=== PATIENT | female | born 1995 | race Caucasian/White ===

== ENCOUNTER 2023-04-28 12:50 | Outpatient (OUT) | payer BC, SELFPAY ==
--- NOTE | 2023-04-28 13:20 | CA_ITS ---
Patient Name: ARISTEO ROLAND MR#: [id number] : 1995 Exam Date: 04/28/2023 Ordering Doctor: DELIA MONSON ECHOCARDIOGRAM REPORT PROCEDURE: CA ECHO DOPPLER COMPLETE INDICATIONS: Supraventricular tachycardia COMPARISON: None. DESCRIPTION: COMPLETE ECHOCARDIOGRAM Real-time transthoracic echocardiography with 2D, M-mode, spectral and color flow Doppler performed. QUALITY: Technical quality was good. 58 , 125#, BSA 1.49 m2 LEFT VENTRICLE: Normal chamber size. Normal left ventricular wall thickness. LV EF: Global left ventricular systolic function is normal; visually estimated ejection fraction is 60 to 65%. No wall motion abnormalities. DIASTOLIC: Normal diastolic function. ATRIAL SEPTUM: Inadequately seen. LEFT ATRIUM: Normal chamber size. RIGHT ATRIUM: Normal chamber size. RIGHT VENTRICLE: Normal chamber size. Normal right ventricular systolic function. TRICUSPID VALVE: Normal mobility and thickness. No stenosis with trivial regurgitation. Unable to assess right-sided pressures due to lack of measurable tricuspid regurgitation. MITRAL VALVE: Normal mobility and thickness. No evidence of mitral valve stenosis. There is no mitral annular calcification. No mitral regurgitation. AORTIC VALVE: Normal trileaflet appearance. No visible sclerosis. Normal leaflet mobility. No evidence of aortic valve stenosis. No aortic regurgitation. AORTIC ROOT: Normal diameter and appearance. PULMONIC VALVE: Normal thickness and mobility. No stenosis. Trivial regurgitation. PERICARDIUM: No evidence of pericardial effusion. IVC: Collapses with inspirations. CONCLUSION: Essentially normal echocardiogram Adult Echocardiography Procedure Report Left Ventricle LVEDD (3.7 - 5.6 cm): 4.10 cm LVESD (2.2 - 4.0 cm): 2.77 cm LVIVS thickness (0.6 - 1.2 cm): 0.68 cm LVPW thickness (0.5 - 1.0 cm): 0.79 cm e': 0.16 m/s E - e': 4.81 LVOT Max Gradient: 3.73 mm[Hg] LVOT Area (cm2): 0.97 m/s Peak Velocity (LVOT): 0.97 m/s Mean Velocity (LVOT): 0.65 m/s LVOT Diameter 1.98 cm Left Atrium LA Volume Index (2D A2C): 17.03 ml/m2 Left Atrium Systolic Dimension: 3.07 cm Mitral Valve MV E to A Ratio: 1.84 Mitral Valve A-Wave Peak Velocity: 0.42 m/s Mitral Valve E-Wave Peak Velocity: 0.77 m/s Right Ventricle Aorta AO Root Diam: 2.52 cm Ascending Ao Diam: 2.34 cm Aortic Valve AoV Area (Peak Deven): 3.07 cm2, 3.07 cm2 AoV Area (VTI): 3.13 cm2, 3.13 cm2 Peak Velocity(Antegrade Flow): 0.96 m/s Peak Gradient(Antegrade Flow): 3.71 mm[Hg] Mean Velocity(Antegrade Flow): 0.66 m/s Mean Gradient(Antegrade Flow): 1.98 mm[Hg] Velocity Time Integral: 18.79 cm Tricuspid Valve Pulmonic Valve Peak Velocity: 1.01 m/s Peak Gradient: 4.18 mm[Hg], 4.01 mm[Hg] Right Atrium Right Atrium Systolic Pressure: 30.39 ml, 30.39 ml Dictated by: Latoya Flor M.D. on 04/28/2023 at 15:25 Approved by: Latoya Flor M.D. on 04/28/2023 at 15:27
== END 2023-04-28 12:51 | disposition home or self-care (01) ==
LOC: CARD 12:50
PROVIDERS: PCP Physician Assistant; Visit Provider Nurse Practitioner
DX: I47.10 Supraventricular tachycardia, unspecified (principal); R94.31 Abnormal electrocardiogram [ECG] [EKG]
CPT/HCPCS: 93306

== ENCOUNTER 2023-05-12 09:30 | Outpatient (OUT) | payer BC, SELFPAY ==
--- OUTSIDE RECORDS SUMMARY | 2023-05-12 09:33 | XMS_ITS | CCD ---
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 Name Role Phone Kentrell Perez Primary Care Physician Clau Genao KENNARD, DR SWAIN Admitting Unavailable KENNARD, DR SWAIN Attending Unavailable KENNARD, DR SWAIN Primary Care Unavailable KENNARD, DR KENTRELL Awan Unavailable KENNARD, DR KENTRELL Arechigaitting Unavailable KENNARD, DR SWAIN Attending Unavailable KENNARD, DR SWAIN Primary Care Unavailable KENNARD, DR SWAIN Consulting Unavailable KENNARD, DR SWAIN Admitting Unavailable KENNARD, DR SWAIN Attending Unavailable HOUSE, DR SWAIN Primary Care Unavailable HOUSE, DR SWAIN Consulting Unavailable JITENDRA, JASBIR Admitting Unavailable JITENDRA, JASBIR Attending Unavailable JITENDRA, JASBIR Consulting Unavailable JITENDRA, JASBIR Admitting Unavailable JITENDRA, JASBIR Attending Unavailable HOUSE, DR SWAIN Primary Care Unavailable JITENDRA, JASBIR Consulting Unavailable ANAND, GLADIS Admitting Unavailable ANAND, GLADIS Attending Unavailable HOUSE, DR SWAIN Primary Care Unavailable GLADIS MICHEL Consulting Unavailable KENNARD, DR SWAIN Admitting Unavailable KENNARD, DR SWAIN Attending Unavailable KENNARD, DR SWAIN Primary Care Unavailable KENNARD, DR SWAIN Consulting Unavailable KENNARD, DR SWAIN Admitting Unavailable KENNARD, DR SWAIN Attending Unavailable HOUSE, DR SWAIN Primary Care Unavailable KENNARD, DR SWAIN Consulting Unavailable Elle Benoit Unavailable DELIA DIAZ Attending Unavailable LUIS A MORSE Attending Unavailable DELIA DIAZ Attending Unavailable Allergies Allergy Classification Reported Allergen(s) Allergy Type Date of Onset Reaction(s) Facility (1 source) Fluconazole; Translations: [FLUCONAZOLE] Drug Allergy 08-09-2022 [facility] Repository Medications Current Medications Medication Drug Class(es) Dates Sig (Normalized) Sig (Original) [id number] 200 actuat albuterol 0.09 mg/actuat metered dose inhaler (1 source) beta2-Adrenergic Agonist Start: 3 take 2 puff(s) by inhalation every four hours as needed Albuterol Sulfate HFA 108 (90 Base) MCG/ACT 2 puffs as needed Inhalation every 4 hrs Apr, Active benzonatate 100 mg oral capsule (1 source) Non-narcotic Antitussive Start: 3 take 1 capsule by mouth every eight hours Tessalon Perles 100 MG 1 capsule as needed Orally Three times a day Apr, Active methIMAzole 5 mg oral tablet (1 source) Thyroid Hormone Synthesis Inhibitor Start: 9 take 2.5 mg by mouth once daily Tapazole 5 mg Tab 2.5 mg, Oral, Daily Start Date: 11/30/18 Status: Ordered methylPREDNISolone 4 mg oral tablet (1 source) Corticosteroid Start: 3 methylPREDNISolone 4 MG as directed Orally Once a day for 6 days Apr, Active predniSONE 20 mg oral tablet (1 source) Start: 3 take 1 tablet by mouth every twelve hours predniSONE 20 MG 1 tablet Orally bid for 5 day(s) Nov, Active propylthiouracil 50 mg oral tablet (1 source) Thyroid Hormone Synthesis Inhibitor take 1 tablet by mouth every twelve hours Propylthiouracil 50 MG 1 tablet Orally Twice a day Active Completed/Discontinued Medications Medication Drug Class(es) Dates Sig (Normalized) Sig (Original) triamcinolone acetonide 40 mg/ml injectable suspension (1 source) Corticosteroid Start: 12-03-2022 Kenalog-40 Nov, 40 mg Problems Active Problems Problem Classification Problem Date Documented Date Episodic/Chronic Allergic reactions (1 source) Allergic contact dermatitis due to plants, except food Episodic Cardiac dysrhythmias (2 sources) Supraventricular tachycardia; Translations: [Supraventricular tachycardia] Onset: 10-04-2022 Chronic Chronic obstructive pulmonary disease and bronchiectasis (1 source) Bronchitis, not specified as acute or chronic Episodic Other screening for suspected conditions (not mental disorders or infectious disease) (5 sources) Encounter for screening for malignant neoplasm of cervix; Translations: [Encounter for screening for cardiovascular disorders] Onset: 04-25-2022 Episodic Residual codes; unclassified (4 sources) Immunization not carried out for unspecified reason; Translations: [IMMUN NOT CARRIED OUT UNS REASON] Onset: 05-09-2022 Episodic Thyroid disorders (5 sources) Thyrotoxicosis with diffuse goiter without thyrotoxic crisis or storm; Translations: [TTX DIFFUS GOITER NO THYROTOXC RAMILA] Onset: 04-25-2022 Chronic Unclassified (1 source) Supraventricular tachycardia, unspecified; Translations: [Supraventricular tachycardia, unspecified] Onset: 04-07-2023 Past or Other Problems Problem Classification Problem Date Documented Date Episodic/Chronic Nonspecific chest pain (2 sources) Chest pain, unspecified; Translations: [Chest pain, unspecified] Onset: 08-09-2022 Episodic Unclassified (1 source) Cough R05.9 Unclassified (1 source) Supraventricular tachycardia, unspecified; Translations: [Supraventricular tachycardia, unspecified] Onset: 04-07-2023 Results Test Name Value Interpretation Reference Range Facility Office Visiton 04-07-2023 Follow-up visit [id number] Estephanie Kothari N 1995 F Date Provider Department Center 04/07/2023 DELIA VIZCAINO No family history on file Level of Service:17045 SC OFFICE/OUTPATIENT ESTABLISHED LOW MDM 20 MIN Normal [facility] Telemedicineon 10-04-2022 Telemedicine [id number] Estephanie Kothari 1995 F Date Provider Department Center 10/04/2022 LUIS A CHA [facility] No family history on file Level of Service:54460 SC PHYS/QHP TELEPHONE EVALUATION 21-30 MIN Normal [facility] Office Visiton 08-09-2022 Follow-up visit [id number] Estephanie Kothari 1995 F Date Provider Department Center 08/09/2022 DELIA VIZCAINO [facility] No family history on file Level of Service:51054 SC OFFICE/OUTPATIENT NEW MODERATE MDM 45-59 MINUTES Reason for Visit and Comments: New Patient [632] - C/O chest pain and shortness of breath. Hx of SVT, MVP. Family history of cardiac issues. Normal [facility] T4on 07-26-2022 T4 [Mass/Vol] 8.60 ug/dL Normal 4.80-13.90 [facility] Comment on above: Performed By: #### T , T4 #### [facility] [address] [address] [address] Cristiana Bautista TSHon 07-26-2022 TSH 2.139 uIU/mL Normal 0.358-3.740 [facility] Comment on above: Performed By: #### T SH, T4 #### [facility] [address] [address] [address] Cristiana Bautista PAP ACOG PANEL 2: 21 to 31on 06-08-2022 . . Normal [facility] Comment on above: Performed By: #### T SH, T4 #### [facility] [address] [address] [address] Cristiana Bautista Age Gdln ACOG Testing - [facility] Comment on above: Performed By: #### T SH, T4 #### [facility] [address] [place] [address] Dr. Cristiana Bautista DIAGNOSIS: Comment [facility] Comment on above: Result Comment: NEGA TIVE FOR INTRAEPITHELIAL LESION OR MALIGNANCY. Performed By: #### T SH, T4 #### [facility] [address] [place] [address] Dr. Cristiana Bautista Methodology: Comment [facility] Comment on above: Result Comment: This liquid based ThinPrep(R) pap test was screened with the use of an image guided system. Performed By: #### T SH, T4 #### [facility] [address] [place] [address] Dr. Cristiana Bautista Note: Comment [facility] Comment on above: Result Comment: The Pap smear is a screening test designed to aid in the detection of premalignant and malignant conditions of the uterine cervix. It is not a diagnostic procedure and should not be used as the sole means of detecting cervical cancer. Both false-positive and false-negative reports do occur. . Performed By: #### T SH, T4 #### [facility] [address] [place] [address] Dr. Cristiana Bautista Performed by: Comment [facility] Comment on above: Result Comment: Claudine Garcia, School Age Program Teacher (ASCP) Performed By: #### T SH, T4 #### [facility] [address] [place] [address] Dr. Cristiana Bautista Reflex Criteria: Comment Normal [facility] Comment on above: Result Comment: The HPV DNA reflex criteria were not met with this specimen result therefore, no HPV testing was performed. . Performed By: #### T SH, T4 #### [facility] [address] [place] [address] Dr. Cristiana Bautista Specimen adequacy: Comment Normal [facility] Comment on above: Result Comment: Sati sfactory for evaluation. Endocervical and/or squamous metaplastic cells (endocervical component) are present. Performed By: #### T SH, T4 #### [facility] [address] [place] [address] Dr. Cristiana Bautista T4on 06-07-2022 T4 [Mass/Vol] 4.70 ug/dL Critically low 4.80-13.90 [facility] Comment on above: Performed By: #### T SH, T4 #### [facility] [address] [place] [address] Dr. Cristiana Bautista TSHon 06-07-2022 TSH 7.684 uIU/mL Critically high 0.358-3.740 [facility] Comment on above: Performed By: #### T SH, T4 #### [facility] [address] [place] [address] Dr. Cristiana Bautista VARICELLA IGG ABon 3 Varicella Zoster IgG 273 index Normal Immune >165 [facility] Comment on above: Result Comment: Nega tive <135 Equivocal 135 - 165 Positive >165 A positive result generally indicates exposure to the pathogen or administration of specific immunoglobulins, but it is not indication of active infection or stage of disease. Performed By: #### V ARCEL #### [facility] [address] [place] [address] Dr. Cristiana Bautista CBC AUTO DIFFon 04-23-2022 BASO # 0.0 103/ul Normal 0.0-0.1 [facility] Comment on above: Performed By: #### C BC #### [facility] [address] [place] [address] Dr. Cristiana Bautista Basophils/100 WBC (Bld) 0.4 % Normal 0.2-2.0 [facility] Comment on above: Performed By: #### C BC #### [facility] [address] [place] [address] Dr. Cristiana Bautista EO # 0.1 103/ul Normal 0.0-0.7 [facility] Comment on above: Performed By: #### C BC #### [facility] [address] [place] [address] Dr. Cristiana Bautista Eosinophils/100 WBC (Bld) 2.3 % Normal 0.9-7.0 [facility] Comment on above: Performed By: #### C BC #### [facility] [address] [place] [address] Dr. Cristiana Bautista Erythrocyte distribution width (RBC) [Ratio] 11.3 % Normal 11.0-15.0 [facility] Comment on above: Performed By: #### C BC #### [facility] [address] [place] [address] Dr. Cristiana Bautista Hematocrit (Bld) [Volume fraction] 35.8 % Critically low 36.0-48.0 [facility] Comment on above: Performed By: #### C BC #### [facility] [address] [place] [address] Dr. Cristiana Bautista Hemoglobin (Bld) [Mass/Vol] 13.0 g/dL Normal 12.0-16.0 [facility] Comment on above: Performed By: #### C BC #### [facility] [address] [place] [address] Dr. Cristiana Bautista IG # 0.01 10e3/ul Normal 0.00-0.03 [facility] Comment on above: Performed By: #### C BC #### [facility] [address] [place] [address] Dr. Cristiana Bautista IG % 0.2 % Normal 0.0-0.5 [facility] Comment on above: Performed By: #### C BC #### [facility] [address] [place] [address] Dr. Cristiana Bautista LYMPH # 2.7 103/ul Normal 1.2-3.8 [facility] Comment on above: Performed By: #### C BC #### [facility] [address] [place] [address] Dr. Cristiana Bautista Lymphocytes/100 WBC (Bld) 51.0 % Normal 20.5-60.0 [facility] Comment on above: Performed By: #### C BC #### [facility] [address] [place] [address] Dr. Cristiana Bautista MANUAL DIFF REQ NO Normal [facility] Comment on above: Performed By: #### C BC #### [facility] [address] [place] [address] Dr. Cristiana Bautista MCH (RBC) [Entitic mass] 27.7 pg Normal 26.7-34.0 [facility] Comment on above: Performed By: #### C BC #### [facility] [address] [place] [address] Dr. Cristiana Bautista MCHC (RBC) [Mass/Vol] 36.3 g/dL Critically high 29.9-35.2 [facility] Comment on above: Performed By: #### C BC #### [facility] [address] [place] [address] Dr. Cristiana Bautista MCV (RBC) [Entitic vol] 76.3 fL Critically low 81.0-99.0 [facility] Comment on above: Performed By: #### C BC #### [facility] [address] [place] [address] Dr. Cristiana Bautista MONO # 0.3 103/ul Normal 0.3-0.8 [facility] Comment on above: Performed By: #### C BC #### [facility] [address] [place] [address] Dr. Cristiana Bautista Monocytes/100 WBC (Bld) 6.3 % Normal 1.7-12.0 [facility] Comment on above: Performed By: #### C BC #### [facility] [address] [place] [address] Dr. Cristiana Bautista NEUT # 2.1 103/ul Normal 1.4-6.5 [facility] Comment on above: Performed By: #### C BC #### [facility] [address] [place] [address] Dr. Cristiana Bautista Neutrophils/100 WBC (Bld) 39.8 % Critically low 43.0-75.0 [facility] Comment on above: Performed By: #### C BC #### [facility] [address] [place] [address] Dr. Cristiana Bautista Platelet mean volume (Bld) [Entitic vol] 9.2 fL Critically low 9.5-13.5 [facility] Comment on above: Performed By: #### C BC #### [facility] [address] [place] [address] Dr. Cristiana Bautista PLT 370 103/ul Normal 150-450 [facility] Comment on above: Performed By: #### C BC #### [facility] [address] [place] [address] Dr. Cristiana Bautista RBC 4.69 106/ul Normal 4.20-5.40 [facility] Comment on above: Performed By: #### C BC #### [facility] [address] [place] [address] Dr. Cristiana Bautista WBC 5.3 103/ul Normal 4.0-11.0 [facility] Comment on above: Performed By: #### C BC #### [facility] [address] [place] [address] Dr. Cristiana Bautista DRUG SCREEN RAPID (URINE)on 04-23-2022 AMP Negative Normal NEGATIVE [facility] Comment on above: Performed By: #### T SH, T4 #### [facility] [address] [place] [address] Dr. Cristiana Bautista BAR Negative Normal NEGATIVE [facility] Comment on above: Performed By: #### T SH, T4 #### [facility] [address] [place] [address] Dr. Cristiana Bautista BUP Negative Normal NEGATIVE [facility] Comment on above: Performed By: #### T SH, T4 #### [facility] [address] [place] [address] Dr. Cristiana Bautista BZO Negative Normal NEGATIVE [facility] Comment on above: Performed By: #### T SH, T4 #### [facility] [address] [place] [address] Dr. Cristiana Bautista DEONTE Negative Normal NEGATIVE [facility] Comment on above: Performed By: #### T SH, T4 #### [facility] [address] [place] [address] Dr. Cristiana Bautista CUT-OFFS SEE BELOW Normal [facility] Comment on above: Result Comment: AMP (Amphetamine): 500ng/mL, BAR (Barbituates): 200 ng/mL, BZO (Benzodiazepines): 150 ng/mL, BUP (Buprenorphine): 10 ng/mL, DEONTE (Cocaine): 150 ng/mL, mAMP (Methamphetamine): 500 ng/mL, MTD (Methadone): 200 ng/mL, OPI (Opiates): 100 ng/mL, OXY (Oxycodone): 100 ng/mL, PCP (Phencyclidine): 25 ng/mL, PPX (Propoxyphene): 300 ng/mL, THC (Cannabinoids): 50 ng/mL, TCA (Trycyclic Antidepressants): 300 ng/mL Performed By: #### T SH, T4 #### [facility] [address] [place] [address] Dr. Cristiana Bautista DRUG CUT HEADER DRUG CLASS TEST SYSTEM CUT-OFF CONCENTRATIONS ARE FOLLOWS: Normal [facility] Comment on above: Performed By: #### T SH, T4 #### [facility] [address] [place] [address] Dr. Cristiana Bautista mAMP Negative Normal NEGATIVE [facility] Comment on above: Performed By: #### T SH, T4 #### [facility] [address] [place] [address] Dr. Cristiana Bautista MTD Negative Normal NEGATIVE [facility] Comment on above: Performed By: #### T SH, T4 #### [facility] [address] [place] [address] Dr. Cristiana Bautista OPI Negative Normal NEGATIVE [facility] Comment on above: Performed By: #### T SH, T4 #### [facility] [address] [place] [address] Dr. Cristiana Bautista OXY Negative Normal NEGATIVE [facility] Comment on above: Performed By: #### T SH, T4 #### [facility] [address] [address] [address] Cristiana Bautista PCP Negative Normal NEGATIVE [facility] Comment on above: Performed By: #### T SH, T4 #### [facility] [address] [place] [address] Dr. Cristiana Bautista PPX Negative Normal NEGATIVE [facility] Comment on above: Performed By: #### T SH, T4 #### [facility] [address] [place] [address] Dr. Cristiana Bautista TCA Negative Normal NEGATIVE [facility] Comment on above: Performed By: #### T SH, T4 #### [facility] [address] [place] [address] Dr. Cristiana Bautista THC Negative Normal NEGATIVE [facility] Comment on above: Performed By: #### T SH, T4 #### [facility] [address] [place] [address] Dr. Cristiana Bautista LIPID PROFILEon 04-23-2022 CHOL-HDL RATIO NORM SEE BELOW Normal [facility] Comment on above: Result Comment: 3.3 - 4.4 LOW RISK 4.4 - 7.1 AVERAGE RISK 7.1 - 11.0 MODERATE RISK >11.0 HIGH RISK Performed By: #### L IPID, CMP #### [facility] [address] [place] [address] Dr. Cristiana Bautista Cholesterol [Mass/Vol] 156 mg/dL Normal <=200 [facility] Comment on above: Performed By: #### L IPID, CMP #### [facility] [address] [place] [address] Dr. Cristiana Bautista Cholesterol in HDL [Mass/Vol] 43 mg/dL Normal 40-60 [facility] Comment on above: Performed By: #### L IPID, CMP #### [facility] [address] [place] [address] Dr. Cristiana Bautista Cholesterol in LDL [Mass/Vol] 95.2 mg/dL Normal [facility] Comment on above: Performed By: #### L IPID, CMP #### [facility] [address] [address] [address] Cristiana Bautista Cholesterol.total/C holesterol in HDL [Mass ratio] 3.6 {ratio} Normal [facility] Comment on above: Performed By: #### L IPID, CMP #### [facility] [address] [address] [address] Cristiana Bautista HDL NORMAL > or = 60 mg/dl - LO W CARDIOVASCULAR RISK <40 mg/dl - HIGH CARDIOVASCULAR RISK Normal [facility] Comment on above: Performed By: #### L IPID, CMP #### [facility] [address] [address] [address] Cristiana Bautista LDL CALC NORMAL SEE BELOW Normal [facility] Comment on above: Result Comment: <100 mg/dl OPTIMAL 100 - 129 mg/dl NEAR OR ABOVE OPTIMAL 130 - 159 mg/dl BORDERLINE HIGH 160 - 189 mg/dl HIGH >190 mg/dl VERY HIGH Performed By: #### L IPID, CMP #### [facility] [address] [place] [address] Dr. Cristiana Bautista Triglyceride [Mass/Vol] 89 mg/dL Normal <=150 [facility] Comment on above: Performed By: #### L IPID, CMP #### [facility] [address] [address] [address] Cristiana Bautista VLDL CALC 17.8 mg/dL Normal [facility] Comment on above: Performed By: #### L IPID, CMP #### [facility] [address] [address] [address] Cristiana Bautista PROF 14(COMP METB)on 023 Albumin [Mass/Vol] 3.7 g/dL Normal 3.4-5.[address] [facility] Comment on above: Performed By: #### L IPID, CMP #### [facility] [address] [address] [address] Cristiana Bautista Albumin/Globulin [Mass ratio] 1.0 {ratio} Normal [facility] Comment on above: Performed By: #### L IPID, CMP #### [facility] [address] [address] [address] Cristiana Bautista ALP [Catalytic activity/Vol] 72 U/L Normal 46-116 [facility] Comment on above: Performed By: #### L IPID, CMP #### [facility] [address] [address] [address] Cristiana Bautista ALT [Catalytic activity/Vol] 18 U/L Normal 14-59 [facility] Comment on above: Performed By: #### L IPID, CMP #### [facility] [address] [address] [address] Cristiana Bautista Anion gap [Moles/Vol] 11.2 mmol/L Normal [facility] Comment on above: Performed By: #### L IPID, CMP #### [facility] [address] [place] [address] Dr. Cristiana Bautista AST [Catalytic activity/Vol] 16 U/L Normal 15-37 [facility] Comment on above: Performed By: #### L IPID, CMP #### [facility] [address] [address] [address] Cristiana Bautista Bilirubin [Mass/Vol] 0.4 mg/dL Normal 0.2-1.0 [facility] Comment on above: Performed By: #### L IPID, CMP #### [facility] [address] [place] [address] Dr. Cristiana Bautista Calcium [Mass/Vol] 8.8 mg/dL Normal 8.5-10.[address] [facility] Comment on above: Performed By: #### L IPID, CMP #### [facility] [address] [address] [address] Cristiana Bautista Chloride [Moles/Vol] 104 mmol/L Normal 98-107 [facility] Comment on above: Performed By: #### L IPID, CMP #### [facility] [address] [address] [address] Cristiana Bautista CO2 [Moles/Vol] 29.9 mmol/L Normal 21.0-32.0 [facility] Comment on above: Performed By: #### L IPID, CMP #### [facility] [address] [address] [address] Cristiana Bautista Creatinine [Mass/Vol] 0.44 mg/dL Critically low 0.55-1.02 [facility] Comment on above: Performed By: #### L IPID, CMP #### [facility] [address] [address] [address] Cristiana Bautista EGFR-AF PALAUAN >60 Normal >=60 [facility] Comment on above: Performed By: #### L IPID, CMP #### [facility] [address] [address] [address] Cristiana Bautista EGFR-NON AF PALAUAN >60 Normal >=60 [facility] Comment on above: Performed By: #### L IPID, CMP #### [facility] [address] [address] [address] Cristiana Bautista Globulin (S) [Mass/Vol] 3.7 g/dL Normal [facility] Comment on above: Performed By: #### L IPID, CMP #### [facility] [address] [address] [address] Cristiana Bautista Glucose [Mass/Vol] 94 mg/dL Normal 74-[address] [facility] Comment on above: Performed By: #### L IPID, CMP #### [facility] [address] [address] [address] Cristiana Bautista Potassium [Moles/Vol] 4.1 mmol/L Normal 3.5-5.1 [facility] Comment on above: Performed By: #### L IPID, CMP #### [facility] [address] [address] [address] Cristiana Bautista Protein [Mass/Vol] 7.4 g/dL Normal 6.4-8.2 [facility] Comment on above: Performed By: #### L IPID, CMP #### [facility] [address] [address] [address] Cristiana Bautista Sodium [Moles/Vol] 141 mmol/L Normal 136-145 [facility] Comment on above: Performed By: #### L IPID, CMP #### [facility] [address] [place] [address] Dr. Cristiana Bautista Urea nitrogen [Mass/Vol] 8.0 mg/dL Normal 7.0-18.0 [facility] Comment on above: Performed By: #### L IPID, CMP #### [facility] [address] [place] [address] Dr. Cristiana Bautista Urea nitrogen/Creatinine [Mass ratio] 18.2 mg/mg Normal [facility] Comment on above: Performed By: #### L IPID, CMP #### [facility] [address] [place] [address] Dr. Cristiana Bautista T4on 04-23-2022 T4 [Mass/Vol] 10.10 ug/dL Normal 4.80-13.90 [facility] Comment on above: Performed By: #### T SH, T4 #### [facility] [address] [place] [address] Dr. Cristiana Bautista TSHon 04-23-2022 TSH Qn m[IU]/L Critically low 0.358-3.740 [facility] Comment on above: Performed By: #### T SH, T4 #### [facility] [address] [place] [address] Dr. Cristiana Bautista COVID/FLU/RSV RT-PCRon 04-19 SARS-CoV-2 (COVID-19) RNA SURAJ+probe Ql (Unsp spec) Negative [facility] Other COVID/FLU/RSV RT-PCR Negative [facility] Other COVID/FLU/RSV RT-PCR neggative [facility] Other T4on 03-12-2022 T4 [Mass/Vol] 15.90 ug/dL Critically high 4.80-13.90 [facility] Comment on above: Performed By: #### T SH, T4 #### [facility] [address] [place] [address] Dr. Cristiana Bautista TSHon 03-12-2022 TSH Qn m[IU]/L Critically low 0.358-3.740 [facility] Comment on above: Performed By: #### T SH, T4 #### [facility] [address], [place] [address] Dr. Cristiana Bautista T4on 02-01-2022 T4 [Mass/Vol] 13.00 ug/dL Normal 4.80-13.90 [facility] Comment on above: Performed By: #### T SH, T4 #### [facility] [address], [place] [address] Dr. Cristiana Bautista TSHon 02-01-2022 TSH 0.001 uIU/mL Critically low 0.358-3.740 [facility] Comment on above: Performed By: #### T SH, T4 #### [facility] [address], [place] [address] Dr. Cristiana Bautista Event Monitoron 01-07-2019 Event Monitor EVENT MONITOR ENROLLMENT PERIOD: 12/05/2018 TO 01/03/2019 INDICATIONS: Supraventricular tachycardia. FINDINGS: Sinus rhythm noted 12/05, 12/06, 12/07 and 12/08. Heart rates ranging between 65 and 96 beats per minute. The patient does complain of shortness of breath and chest pain and heart racing, but only sinus rhythm is noted. On 12/15 there is a supraventricular rhythm, heart rate of 160; however, due to significant signal degradation it is unclear what the underlying rhythm is. However, it is suspected that this represents sinus tachycardia. Cannot rule out supraventricular tachycardia. On 12/22 and 12/28 there are complaints of shortness of breath and chest pain and light-headedness while the patient is in sinus rhythm or sinus tachycardia, heart rates ranging between 86 and 113 beats per minute. IMPRESSION: 1. Event monitor notable for the predominance of sinus rhythm and sinus tachycardia. 2. Symptoms of shortness of breath, heart racing, chest pain, light-headedness, all correlate only with sinus rhythm. 3. Single rhythm strip from 12/15/18 at 2131 and 35 seconds shows a supraventricular rhythm that is at 160 beats per minute. This is an automatic trigger, and no symptoms are associated with it. There is no activity noted with it. Differential includes sinus tachycardia versus supraventricular tachycardia. Signal degradation prevents accurate diagnosis. READ BY: Julio Mendenhall MD aek Dictated: 01/07/2019 #[id number] Typed: 01/07/2019 #[id number] cc: Julio Mendenhall MD [facility] Comment on above: Result Comment: Elec tronically Signed By: Za GARCIA, Julio Hill\.br\Date and Time Signed: 01/07/19 16:27 EDT Coding Summary.on 12-19-2018 Coding Summary. CODING DATE: 12/19/[address] [facility] STATUS: Home (Routine DC) PAYOR: Medicaid EAPG DESCRIPTION 0418 MINOR CARDIAC AND VASCULAR TESTS ADMIT DX: REASON FOR VISIT DX: I47.1 Supraventricular tachycardia FINAL DX: PRINCIPAL: I47.1 Supraventricular tachycardia SECONDARY: PYMT PROC EAPG STAT DESCRIPTION DOCTOR NAME DATE NOTE: The code number assigned matches the documented diagnosis and / or procedure in the patient's chart. However, the narrative phrase printed from the coding software may appear abbreviated, or result in slightly different terminology. Coded By: Cassie Pradhan CphT Date Saved: 12/19/2018 07:42 am [facility] Coding Summary.on 12-03-2018 Coding Summary. CODING DATE: 12/03/[address] [facility] STATUS: Home (Routine DC) PAYOR: Medicaid EAPG DESCRIPTION 0601 LEVEL I CARDIAC ARRHYTHMIA & CONDUCTION DIAGNOSES ADMIT DX: REASON FOR VISIT DX: I47.1 Supraventricular tachycardia FINAL DX: PRINCIPAL: I47.1 Supraventricular tachycardia SECONDARY: R00.2 Palpitations E05.90 Thyrotoxicosis, unspecified without thyrotoxic crisis or storm PYMT PROC EAPG STAT DESCRIPTION DOCTOR NAME DATE NOTE: The code number assigned matches the documented diagnosis and / or procedure in the patient's chart. However, the narrative phrase printed from the coding software may appear abbreviated, or result in slightly different terminology. Coded By: Cassie Pradhan CphT Date Saved: 12/03/2018 10:29 am [facility] Echo Transthoracic Completeo n 11-20-2018 Echo Transthoracic Complete Echocardiology Procedure Exam Date/Time Accession # Ordering Echo Transthoracic 11/08/2018 11:47 EDT [id number] Kentrell Perez DO Complete CPT code 06934 Reason for Exam (Echo Transthoracic Complete) MITROVALVE PROLAPSE, SVT Report Patient Height: 59 Patient Weight: 90 Blood Pressure: 114/77 1. LVIDd m(3.8-5.8cm)w(3.8-5.2 cm) 3.7 cm 2. LVIDs m(2.1-3.9cm)w(2.2-3.5 cm) 2.1 cm 3. IVSd m(0.6-1.0cm) 0.86 cm 4. LVPWd (0.6-1.0cm) 0.65 cm 5. LAs (2.7-4.0cm) 2.6 cm 6. LA Vol. Index (16-34 mL/m2) 18 mL/m2 7. AOd Root (3.0-3.4cm) 1.8 cm 8. AO Annulus (2.3-2.6cm) _ cm 9. AO Sinus of Valsalva (3.0-3.4cm) _ cm 10. AO Sinotubular Junction (2.6-2.9cm) _ cm 11. Ascending Aorta (2.7-3.0cm) _ cm 12. RVIDd (2.0-3.0cm) 3.0 cm 13. AoV Peak Gradient _ mmHg 14. AoV Mean Gradient _ mmHg 15. LVOT Diam _ cm INDICATION : Supraventricular tachycardia and mitral valve prolapse. FINDINGS : 1. Left atrium: Normal in size. 2. Right atrium: Normal in size. 3. Interatrial septum: Appears intact. 4. Left ventricle: Normal in size and global systolic function. Absence of left ventricular hypertrophy. Absence of segmental wall motion abnormalities. Ejection fraction approximately 55-60%. The diastolic function was normal. 5. Right ventricle: Normal in size and systolic function. TAPSE was 2.3 cm. 6. Mitral valve: Structurally normal with no obvious mitral valve prolapse. There is no mitral stenosis but trivial mitral regurgitation. 7. Aortic valve: Structurally normal with no aortic stenosis or regurgitation. 8. Tricuspid valve: Structurally normal with trivial tricuspid regurgitation. Absence of pulmonary hypertension. Echocardiology Procedure Exam Date/Time Accession # Ordering Echo Transthoracic 11/08/2018 11:47 EDT [id number] Kentrell Perez DO Complete Report 9. Pulmonic valve: Structurally normal with trivial pulmonic regurgitation. 10. Pericardium: No effusion seen. 11. Aortic root: Normal in size. IMPRESSION : 1. Technically adequate study. 2. Absence of significant valvular heart disease. 3. Ejection fraction 55-60%. FINAL REPORT Signed (Electronic Signature): 11/20/2018 7:58 pm Signed by: Rosibel Quiroz MD Transcribed by: modesta Technologist: ANAMIKA [facility] Coding Summary.on 11-09-2018 Coding Summary. CODING DATE: 11/09/[address] [facility] STATUS: Home (Routine DC) PAYOR: Medicaid EAPG DESCRIPTION 0081 ECHOCARDIOGRAPHY ADMIT DX: REASON FOR VISIT DX: I34.1 Nonrheumatic mitral (valve) prolapse FINAL DX: PRINCIPAL: I34.1 Nonrheumatic mitral (valve) prolapse SECONDARY: I47.1 Supraventricular tachycardia PYMT PROC EAPG STAT DESCRIPTION DOCTOR NAME DATE NOTE: The code number assigned matches the documented diagnosis and / or procedure in the patient's chart. However, the narrative phrase printed from the coding software may appear abbreviated, or result in slightly different terminology. Coded By: Cassie Pradhan CphT Date Saved: 11/09/2018 12:11 pm [facility] Vital Signs Date Time Vital Sign Value Performing Clinician Facility 12-03-2022 10:15-0400 Body height 149.86 cm Elle Danielsmond Other [facility] Other 12-03-2022 10:15-0400 Body mass index (BMI) [Ratio] 24.84 kg/m2 Elle Kaycee Other [facility] Other 12-03-2022 10:15-0400 Body temperature 99.1 [degF] Elle Kaycee Other [facility] Other 12-03-2022 10:15-0400 Body weight 55.79 kg Elle Kaycee Other [facility] Other 12-03-2022 10:15-0400 Respiratory rate 16 /min Elle Benoit Other [facility] Other 12-03-2022 10:15-0400 SaO2% (BldA) [Mass fraction] 98 % Elle Kaycee Other [facility] Other 04-19-2022 11:00-0500 Body height 149.86 cm Clau Genao Other [facility] Other 04-19-2022 11:00-0500 Body mass index (BMI) [Ratio] 24.23 kg/m2 Clau Corriganault Other [facility] Other 04-19-2022 11:00-0500 Body temperature 99.8 [degF] Clau Corriganault Other [facility] Other 04-19-2022 11:00-0500 Body weight 54.43 kg Clau Genao Other [facility] Other 04-19-2022 11:00-0500 Respiratory rate 18 /min Clau Genao Other [facility] Other 04-19-2022 11:00-0500 SaO2% (BldA) [Mass fraction] 96 % Clau Genao Other [facility] Other Encounters Encounter Date Encounter Type Care Provider Facility Start: 04-07-2023 End: 04-07-2023 ambulatory DELIA [facility] Start: 12-03-2022 End: 12-03-2022 ambulatory Elle Benoit Other [facility] Other Start: 12-03-2022 Office outpatient visit 15 minutes Elle Benoit [facility] Start: 10-04-2022 End: 10-06-2022 ambulatory LUIS A PIMENTELO [facility] Start: 08-09-2022 End: 08-09-2022 ambulatory DELIA DIAZ [facility] Start: 07-26-2022 End: 07-27-[address] KENTRELL PEREZ Facility:[facility] Start: 06-07-2022 End: 06-08-[address] KENTRELL PEREZ Facility:[facility] Start: 05-31-2022 End: 05-31-2022 ambulatory GLADIS MICHEL Facility:[facility] Start: 05-09-2022 End: 05-10-2022 ambulatory JASBIR HAM Facility:[facility] Start: 04-25-2022 Encounter for genera l adult medical examination without abnormal findings JASBIR HAM [facility] Start: 04-23-2022 End: 04-24-[address] KENTRELL PEREZ Facility:[facility] Start: 04-23-2022 End: 04-24-2022 Encounter for general adult medical examination without abnormal findings JASBIR HAM Facility:[facility] Start: 04-19-2022 End: 04-19-2022 ambulatory Clau Genao Other [facility] Other Start: 04-19-2022 Office outpatient visit 15 minutes Clau Genao [facility] Start: 03-12-2022 End: 03-13-[address] KENTRELL PEREZ Facility:[facility] Start: 02-01-2022 End: 02-02-[address] KENTRELL PEREZ Facility:[facility] Start: 07-05-2021 End: 07-10-2021 Pre-admission assessment Addison Johnson [facility] Payers Date Payer Category Payer Blue [place] Blue [facility] [id number] 1997 Unknown [id number] [id number] [id number] 1997 Unknown [id number] 2.16.84 [id number] 1997 Unknown [id number] 2.16.84 [id number] 1997 Unknown [id number] 2.16.84 [id number] 1997 Unknown [id number] 2.16.84 [id number] 1997 Unknown [id number] 2.16.84 [id number] 1997 Unknown [id number] 2.16.84 [id number] 1997 Unknown [id number] 2.16.84 [id number] 1957 [facility] [id number] 1957 Medicaid [id number] Social History Date Type Detail Facility Start: 11-30-2018 Tobacco smoking status Never s moked tobacco (finding) [facility] Sex Assigned At Female [facility] Clinical Notes 04-19-2022 to 04-07-2023 Note Date & Type Note Facility 04-07-2023 Note [facility] Consult Note Reason for visit: SVT/ palpitations, 6 month follow up 04/07/23: Here for follow up regarding SVT She continues to have palpitations They have improved from the past but since follow up she states its still about the same She would like to maintain conservative management for now and would like to wait before deciding medications 10/04/22 dr. morse HPI: Estephanie Kothari is a 27 y.o. year old with past medical history of SVT. She was previously seen a few years ago by Dr. Allen, had Holter monitor placed and was found to have sinus tachycardia. She did not try medication and feels her palpitations were improving despite continuing to feel palpitations. Recently been under a lot of stress with work and recenlty switched jobs which has helped her. There was one occasion when she wore the event monitor that she had SVT. She continues to feel palpitations with racing heart and that has increased in frequency. She is able to exercise for extended amount of time without concern for palpitations. Palpitations come on randomly. She has noticed heart rate spike and then drop to the mid 50s where she normally sits. At times these palpitations are associated with lightheadedness and dizziness, she has never passed out but states she has felt close. 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 Event monitor: PMH: No past medical history on file. PSH: No past surgical history on file. SH: Social Determinants of Health Tobacco Use: Low Risk (08/09/2022) Patient History Smoking Tobacco Use: Never Smokeless Tobacco Use: Never Passive Exposure: Past Alcohol Use: Not on file Financial Resource Strain: Not on file Food Insecurity: Not on file Transportation Needs: Not on file Physical Activity: Not on file Stress: Not on file Social Connections: Not on file Intimate Partner Violence: Not on file Depression: Not on file Housing Stability: Not on file Allergies: Allergies Allergen Reactions Diflucan [Fluconazole] GI intolerance Weight: No weight available Visit Vitals OB Status Having periods Smoking Status Never Meds: Current Outpatient Medications on File Prior to Visit Medication Sig Dispense Refill mv-min/iron/folic/calcium/vitK (WOMEN'S MULTIVITAMIN ORAL) Take 1 tablet by mouth in the morning. No current facility-administered medications on file prior to visit. ROS: Cardio Basic Cardiovascular Symptoms: no lightheadedness, no leg edema, no syncope, no orthopnea, no PND, no claudication, Constitutional Constitutional: no fever, no night sweats, no significant weight gain, no significant weight loss, no exercise intolerance Eyes Eyes: no dry eyes, no irritation, no vision change ENMT Ears: no difficulty hearing, no ear pain Nose: no frequent nosebleeds, Mouth/Throat: no sore throat, no bleeding gums, no snoring, no dry mouth, no mouth ulcers, no oral abnormalities, no teeth problems Respiratory Respiratory: no cough, no wheezing, no coughing up blood, no sleep apnea Musculoskeletal Musculoskeletal: no muscle aches, no muscle weakness, joint pain+, no back pain, no swelling in the extremities Integumentary Skin no rash, no ulcer, no varicosities, no discoloration, no pruritus Neurologic Neurologic: no loss of consciousness, no weakness, no numbness, no seizures, no dizziness, no headaches Psychiatric Psych: no depression, feeling safe in relationship, no alcohol abuse, Hematologic/Lymphatic Hematologic/Lymphatic no swollen glands, no bruising Physical Exam: Telemed Labs: @LABRESULTS@ No results found for: CHOLESTEROL TOTAL , HDL , LDL CALC , LDL DIRECT , TRIGLYCERIDES , TSH , T3 TOTAL , T4 TOTAL , THYROID PEROXIDASE AB , BNP EKG: No results found for this or any previous visit (from the past 4464 hour(s)). Echo: Stress test: Coronary angiogram: @CATH@ Diagnostic Imaging: No images are attached to the encounter. Assessment and Plan: Paroxysmal SVT (supraventricular tachycardia) ([facility]/HCC) - 30-day event monitor reveals long RP tachycardia. Those with 130-140 likely sinus tachy but one at 170-180bpm maybe SVT. Discussed findings with patient. She has felt better since switching jobs. If there is recurrence, will proceed with EPS and ablation. - for now we will continue with monitoring, she is aware if it persists we will consider EPS / ablation at that time -follow up in 6 months or sooner as needed Delia Diaz NP Cardiac Electrophysiology [facility] 04-07-2023 Note Patient here for 6 m o follow up SVT. Says she will be having thyroid function checked soon. C/o palpitations and SOB w/wo exertion. Denies chest pain and lightheadedness. Review of Systems Cardiovascular: Positive for dyspnea on exertion, irregular heartbeat and palpitations. Respiratory: Positive for shortness of breath. All other systems reviewed and are negative. [facility] 12-03-2022 Evaluation note Encounter Date Diagnosis Assessment Notes Nov, Poison h[place] dermatitis (ICD-10 - L23.7) Poison [place] allergy home care material was printed Drink plenty fluids, get plenty of rest. Take the prednisone as prescribed until gone starting tomorrow. You may take Benadryl as needed for itching. You may use calamine lotion to the rash. I recommend that you wash your bedding every day for the next couple of days and give her dog a bath today. Follow-up with your family physician if no improvement in 2 to 3 days [facility] Other 06-20-2023 Note[facility] Electrophysiology Consult Note Date of Telehealth Visit: 10/04/22 The patient was notified that using 3rd alliance party telecommunication application (e.g., [employer]) is not HIPPA compliant and may carry some privacy risks. Yes The visit was conducted [id number] with the use of audio and video technology Haley. between patient and provider for a virtual visit. Verbal consent to provide and bill this service was obtained on 10/04/22 . No signature was obtained due to the COVID-19 pandemic. Patient Location: Patient Home I spent 22 minutes of total time on the day of the visit. This time was spent preparing for the visit, obtaining and reviewing any outside history/data, taking a history, performing an exam/evaluation, counseling and educating patient/family about the diagnosis and plan, performing medical decision making, referring to and communicating with other health care referrals, independently interpreting results and documenting in the EMR, and coordinating care. Please see the additional documentation in this note for specific details. Reason for visit: SVT/ palpitations HPI: Estephanie Kothari is a 27 y.o. year old with past medical history of SVT. She was previously seen a few years ago by Dr. Allen, had Holter monitor placed and was found to have sinus tachycardia. She did not try medication and feels her palpitations were improving despite continuing to feel palpitations. Recently been under a lot of stress with work and recenlty switched jobs which has helped her. There was one occasion when she wore the event monitor that she had SVT. She continues to feel palpitations with racing heart and that has increased in frequency. She is able to exercise for extended amount of time without concern for palpitations. Palpitations come on randomly. She has noticed heart rate spike and then drop to the mid 50s where she normally sits. At times these palpitations are associated with lightheadedness and dizziness, she has never passed out but states she has felt close. 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 Event monitor: PMH: No past medical history on file. PSH: No past surgical history on file. SH: Social Determinants of Health Tobacco Use: Low Risk Smoking Tobacco Use: Never Smokeless Tobacco Use: Never Passive Exposure: Past Alcohol Use: Not on file Financial Resource Strain: Not on file Food Insecurity: Not on file Transportation Needs: Not on file Physical Activity: Not on file Stress: Not on file Social Connections: Not on file Intimate Partner Violence: Not on file Depression: Not on file Housing Stability: Not on file Allergies: Allergies Allergen Reactions Diflucan [Fluconazole] GI intolerance Weight: No weight available Visit Vitals OB Status Having periods Smoking Status Never Meds: Current Outpatient Medications on File Prior to Visit Medication Sig Dispense Refill mv-min/iron/folic/calcium/vitK (WOMEN'S MULTIVITAMIN ORAL) Take 1 tablet by mouth in the morning. No current facility-administered medications on file prior to visit. ROS: Cardio Basic Cardiovascular Symptoms: no lightheadedness, no leg edema, no syncope, no orthopnea, no PND, no claudication, Constitutional Constitutional: no fever, no night sweats, no significant weight gain, no significant weight loss, no exercise intolerance Eyes Eyes: no dry eyes, no irritation, no vision change ENMT Ears: no difficulty hearing, no ear pain Nose: no frequent nosebleeds, Mouth/Throat: no sore throat, no bleeding gums, no snoring, no dry mouth, no mouth ulcers, no oral abnormalities, no teeth problems Respiratory Respiratory: no cough, no wheezing, no coughing up blood, no sleep apnea Musculoskeletal Musculoskeletal: no muscle aches, no muscle weakness, joint pain+, no back pain, no swelling in the extremities Integumentary Skin no rash, no ulcer, no varicosities, no discoloration, no pruritus Neurologic Neurologic: no loss of consciousness, no weakness, no numbness, no seizures, no dizziness, no headaches Psychiatric Psych: no depression, feeling safe in relationship, no alcohol abuse, Hematologic/Lymphatic Hematologic/Lymphatic no swollen glands, no bruising Physical Exam: Telemed Labs: @LABRESULTS@ No results found for: CHOLESTEROL TOTAL, HDL, LDL CALC, LDL DIRECT, TRIGLYCERIDES, TSH, T3 TOTAL, T4 TOTAL, THYROID PEROXIDASE AB, BNP, BNP, BNP EKG: No results found for this or any previous visit (from the past 4464 hour(s)). Echo: Stress test: Coronary angiogram: @CATH@ Diagnostic Imaging: No images are attached to the encounter. Assessment and Plan: Paroxysmal SVT (supraventricular tachycardia) (CMS/HCC) - 30-day event monitor reveals long RP tachycardia. Tjose with 130-140 likely sinus tachy but one at 170-180bpm maybe SVT. Discussed findings with patient. She has felt better sinc (more content not included)...[facility]04-26-2023 Note- She has been started on medication which is on hold due to her past levels. Is being managed by PCP -This [facility] yet [facility] 30-day event [facility]- Per previous monitor in 2019 sinus tachycardia -ECG today sinus bradycardia asymptomatic -30-day event monitor to evaluate for SVT versus sinus tachycardiaUnDay[facility]23 NoteLinmazin is here today as a new patient. She states that she has had some chest pain and says it almost feels like her heart stops. Complains of palpitations. She also has trouble breathing during the episodes. These have happened twice. Most recent was just over a week ago. Believes it may be stress-related, but unsure. Has history of SVT and MVP. Also has family history of heart problems. Review of Systems Constitutional: Positive for malaise/fatigue. HENT: Negative. Eyes: Negative. Cardiovascular: Positive for chest pain, irregular heartbeat and palpitations. Negative for dyspnea on exertion, leg swelling, near-syncope and syncope. Respiratory: Negative. Endocrine: Diagnosed with hyperthyroidism Hematologic/Lymphatic: Bruises/bleeds easily (easy bruising - diagnosed with anemia). Skin: Positive for dry skin (diagnosed with eczema). Musculoskeletal: Negative. Gastrointestinal: Positive for bloating. Genitourinary: Negative. Neurological: Positive for excessive daytime sleepiness, dizziness and headaches. Negative for light-headedness and loss of balance. Psychiatric/Behavioral: Positive for depression (diagnosed with depression). Negative for altered mental status, hallucinations, memory loss, substance abuse and suicidal ideas. The patient has insomnia (takes Melatonin to help) and is nervous/anxious (diagnosed with anxiety). Allergic/Immunologic: Negative. All other systems reviewed and are negative.[facility] 08-09-2022 NoteUT Electrophysiology Consult Note Reason for visit: last seen >3 years ago, new pt for SVT HPI: Estephanie Kothari is a 26 y.o. year old with past medical history of SVT. She was previously seen a few years ago by Dr. Allen, had Holter monitor placed and was found to have sinus tachycardia. She did not try medication and feels her palpitations were improving despite continuing to feel palpitations. Recently been under a lot of stress with graduating college this year and has noticed her heart rate jump into the 180s. She continues to feel palpitations with racing heart and that has increased in frequency. She is able to exercise for extended amount of time without concern for palpitations. Palpitations come on randomly. She has noticed heart rate spike and then drop to the mid 50s where she normally sits. At times these palpitations are associated with lightheadedness and dizziness, she has never passed out but states she has felt close. Discussed with her we will need to do another 30-day event monitor to assess tachycardia Previously in 2019 she was also being evaluated for thyroid concerns. She has not started medication but her thyroid levels were too low PMH: No past medical history on file. PSH: No past surgical history on file. SH: Social Determinants of Health Tobacco Use: Low Risk Smoking Tobacco Use: Never Smokeless Tobacco Use: Never Passive Exposure: Past Alcohol Use: Not on file Financial Resource Strain: Not on file Food Insecurity: Not on file Transportation Needs: Not on file Physical Activity: Not on file Stress: Not on file Social Connections: Not on file Intimate Partner Violence: Not on file Depression: Not on file Housing Stability: Not on file Allergies: Allergies Allergen Reactions Diflucan [Fluconazole] GI intolerance Weight: 56.5kg Visit Vitals BP 108/72 (BP Location: Left arm, Patient Position: Sitting) Pulse 68 Ht 1.473 m (4' 10 ) Wt 56.5 kg (124 lb 9.6 oz) LMP 08/02/2022 SpO2 98% BMI 26.04 kg/m??? OB Status Having periods Smoking Status Never BSA 1.52 m??? Meds: Current Outpatient Medications on File Prior to Visit Medication Sig Dispense Refill mv-min/iron/folic/calcium/vitK (WOMEN'S MULTIVITAMIN ORAL) Take 1 tablet by mouth in the morning. No current facility-administered medications on file prior to visit. ROS: Cardio Basic Cardiovascular Symptoms: no lightheadedness, no leg edema, no syncope, no orthopnea, no PND, no claudication, Constitutional Constitutional: no fever, no night sweats, no significant weight gain, no significant weight loss, no exercise intolerance Eyes Eyes: no dry eyes, no irritation, no vision change ENMT Ears: no difficulty hearing, no ear pain Nose: no frequent nosebleeds, Mouth/Throat: no sore throat, no bleeding gums, no snoring, no dry mouth, no mouth ulcers, no oral abnormalities, no teeth problems Respiratory Respiratory: no cough, no wheezing, no coughing up blood, no sleep apnea Musculoskeletal Musculoskeletal: no muscle aches, no muscle weakness, joint pain+, no back pain, no swelling in the extremities Integumentary Skin no rash, no ulcer, no varicosities, no discoloration, no pruritus Neurologic Neurologic: no loss of consciousness, no weakness, no numbness, no seizures, no dizziness, no headaches Psychiatric Psych: no depression, feeling safe in relationship, no alcohol abuse, Hematologic/Lymphatic Hematologic/Lymphatic no swollen glands, no bruising Physical Exam: Constitutional General Appearance: well-nourished, well-developed, appears stated age Level of Distress: comfortable Psychiatric Mental Status: alert, normal affect Orientation: oriented to time, place, and person Insight: good judgement Eyes Lids and Conjunctivae: non-injected, no xanthelasma ENMT Ears: no lesions on external ear Nose: no lesions on external nose Oropharynx: no cyanosis, no pallor Neck Neck: supple, trachea midline Carotid Arteries: bilateral normal upstroke, no bruits Jugular Veins: normal jugular venous pressure Thyroid: not enlarged Lungs Respiratory Effort: unlabored Chest Exam: normal curvature, no thoracic deformity Auscultation: clear, no wheezing, no rales, no rhonchi Cardiovascular Rate And Rhythm: regular Heart Sounds: normal S1, normal s2, no gallop Systolic Murmur: not heard Diastolic Murmur: not heard Extremities: no cyanosis, no edema, no peripheral signs of emboli Peripheral Pulses Radial Pulse: normal Abdomen Inspection and Palpation: soft, non distended, no bruit, non tender Musculoskeletal Inspection: no joint swelling Neurologic Gait: normal gait Skin Inspection and Palpation: warm and dry Nails: no clubbing Labs: @LABRESULTS@ No results found for: CHOLESTEROL TOTAL, HDL, LDL CALC, LDL DIRECT, TRIGLYCERIDES, TSH, T3 TOTAL, T4 TOTAL, THYROID PEROXIDASE AB, BNP, BNP, BNP EKG: No results foun (more content not included)...[facility]01-03-2023 Evaluation note* Encounter Date Diagnosis Assessment Notes Treatment Notes Treatment Clinical Notes Apr, Cough (ICD-10 - R05.9) Apr, Bronchitis (ICD-10 - J40) Take medications as directed. Rest and increase fluid intake. Take meds with food to prevent stomach upset. Use inhaler as needed for coughing spells and SOB. It is better to use inhaler a few times a day over the next 2-3 days. Follow up with primary care provider if symptoms do not improve with treatment plan, although it may take a few weeks for the cough to go away, Acute bronchitis material was printed [employer] Other Evaluation + Plan note No data available for this section [facility] - [facility]orted* Type Description Date Medical History mitral valve prolapse Medical History svt's Medical History Graves disease [facility] [employer] Other Hospital Discharge instructions No data available for this section [facility] Summary Purpose Family History No Family History Records FoundNo Family History Records FoundNo Family History Records Found Advance Directives No Advanced Directives Records FoundNo Advanced Directives Records FoundNo Advanced Directives Records Found Additional Source Comments INFORMATION SOURCE (unrecogn ized section and content) DATE CREATED AUTHOR 01/17/2019 [facility] DATE CREATED AUTHOR AUTHOR'S ORGANIZ ATION 08/01/2022 [facility] DATE CREATED AUTHOR AUTHOR'S ORGANIZ ATION 04/08/2023 [facility] REASON FOR VISIT (unrecogniz ed section and content) COUGH, FEVER, CONGESTION, H/ YUMIKO, BOTH ARMS, LEGS, FEET AND HANDS FOR RECORDS PERTAINING TO PATIENTS WHO ARE OR HAVE BEEN ENROLLED IN A CHEMICAL DEPENDENCY/SUBSTANCEABUSE PROGRAM, SOME INFORMATION MAY BE OMITTED. This clinical summary was aggregated from multiple sources. Caution should be exercised in using it in the provision of clinical care. This summary normalizes information from multiple sources, and as a consequence, information in this document may materially change the coding, format and clinical context of patient data. In addition, data may be omitted in some cases. CLINICAL DECISIONS SHOULD BE BASED ON THE PRIMARY CLINICAL RECORDS. [employer] [facility]. provides no warranty or guarantee of the accuracy or completeness of information in this document.
[2023-05-12 09:55] LABS: Basophils Percent Auto 0.6 % (0.2-2.0); Eosinophils Absolute Auto 0.2 10^3/uL (0.0-0.7); Eosinophils Percent Auto 2.3 % (0.9-7.0); Hematocrit 41.5 % (36.0-48.0); Hemoglobin 13.7 g/dL (12.0-16.0); Immature Granulocytes Abs Auto 0.02 10^3/uL (0.00-0.03); Immature Granulocytes Pct Auto 0.3 % (0.0-0.5); Lymphocytes Absolute Auto 2.6 10^3/uL (1.2-3.8); Lymphocytes Percent Auto 35.1 % (20.5-60.0); Mean Corpuscular Hemoglobin 29.1 pg (26.7-34.0); Mean Corpuscular Volume 88.3 fL (81.0-99.0); Mean Platelet Volume 9.9 fL (9.5-13.5); Monocytes Absolute Auto 0.5 10^3/uL (0.3-0.8); Monocytes Percent Auto 6.7 % (1.7-12.0); Platelet Count 456 10^3/uL (150-450); Red Cell Distribution Width 12.1 % (11.0-15.0); White Blood Count 7.3 10^3/uL (4.0-11.0)
[2023-05-12 10:33] LABS: Free T4 1.25 ng/dL (0.76-1.46)
[2023-05-12 11:44] LABS: Alanine Aminotransferase 22 U/L (14-59); Albumin Globulin Ratio 0.9; Albumin Level 4.2 g/dL (3.4-5.0); Alkaline Phosphatase 72 U/L (46-116); Anion Gap 4.2; Aspartate Amino Transferase 14 U/L (15-37); BUN Creatinine Ratio 9.5; Bilirubin Total 0.5 mg/dL (0.2-1.0); Calcium 9.3 mg/dL (8.5-10.1); Carbon Dioxide 29.5 mmol/L (21.0-32.0); Chloride 103 mmol/L (98-107); Estimated GFR (African America >60 (>=60); Estimated GFR (Non-African Ame >60 (>=60); Free T3 3.37 pg/mL (2.18-3.98); Globulin 4.5 g/dL; Glucose 93 mg/dL (74-106); Potassium 3.7 mmol/L (3.5-5.1); Sodium 133 mmol/L (136-145); TSH W/ REFLEX FT4 1.112 uIU/mL (0.358-3.740); Total Protein 8.7 g/dL (6.4-8.2)
== END 2023-05-12 09:31 | disposition home or self-care (01) ==
LOC: LAB 09:31
PROVIDERS: PCP Physician Assistant; Visit Provider Physician Assistant
DX: E05.90 Thyrotoxicosis, unspecified without thyrotoxic crisis or storm (principal)
CPT/HCPCS: 36415; 80053; 84439; 84443; 84481; 85025

== ENCOUNTER 2023-08-11 13:35 | Outpatient (OUT) | payer BC, SELFPAY | END 2023-08-11 13:36 | disposition home or self-care (01) | LOC: LAB 13:35 | PROVIDERS: PCP Nurse Practitioner; Visit Provider Nurse Practitioner | DX: E05.90 Thyrotoxicosis, unspecified without thyrotoxic crisis or storm (principal) | CPT/HCPCS: 36415; 84443 ==

== ENCOUNTER 2023-12-01 14:28 | Outpatient (OUT) | payer BC, SELFPAY ==
[2023-12-01 19:13] LABS: Free T4 1.05 ng/dL (0.76-1.46)
[2023-12-01 19:46] LABS: Thyroid Stimulating Hormone 1.224 uIU/mL (0.358-3.740)
== END 2023-12-01 14:29 | disposition home or self-care (01) ==
LOC: LAB 14:28
PROVIDERS: PCP Nurse Practitioner; Visit Provider Nurse Practitioner
DX: E05.90 Thyrotoxicosis, unspecified without thyrotoxic crisis or storm (principal)
CPT/HCPCS: 36415; 84439; 84443

== ENCOUNTER 2023-12-26 16:22 | Outpatient (OUT) | payer BC, SELFPAY ==
--- OUTSIDE RECORDS SUMMARY | 2023-12-26 16:33 | XMS_ITS | CCD ---
Author Organization [facility] Care Team Providers Care Cash Posting Clerk Name Role Phone Kentrell Perez Primary Care Physician Clau Genao ANA, DR SWAIN Admitting Unavailable [place], DR SWAIN Attending Unavailable [place], DR SWAIN Primary Care Unavailable [place], DR SWAIN Consulting Unavailable [place], DR SWAIN Admitting Unavailable [place], DR SWAIN Attending Unavailable [place], DR SWAIN Primary Care Unavailable [place], DR KENTRELL Awan Unavailable [place], DR SWAIN Admitting Unavailable [place], DR SWAIN Attending Unavailable HOUSE, DR SWAIN Primary Care Unavailable [place], DR SWAIN Consulting Unavailable JITENDRA, JASBIR Admitting Unavailable JITENDRA, JASBIR Attending Unavailable JITENDRA, JASBIR Consulting Unavailable JITENDRA, JASBIR Admitting Unavailable JITENDRA, JASBIR Attending Unavailable HOUSE, DR SWAIN Primary Care Unavailable JITENDRA, JASBIR Consulting Unavailable ANAND, GLADIS Admitting Unavailable ANAND, GLADIS Attending Unavailable HOUSE, DR SWAIN Primary Care Unavailable ANAND, GLADIS Consulting Unavailable [place], DR SWAIN Admitting Unavailable [place], DR SWAIN Attending Unavailable [place], DR SWAIN Primary Care Unavailable [place], DR KENTRELL Awan Unavailable [place], DR SWAIN Admitting Unavailable [place], DR SWAIN Attending Unavailable HOUSE, DR SWAIN Primary Care Unavailable HOUSE, DR SWAIN Consulting Unavailable Elle Benoit Unavailable DELIA DIAZ Attending Unavailable SHAWNAEKATERINA Miller Attending Unavailable DUSTIN, LUIS A Attending Unavailable ANAND, GLADIS Attending Unavailable Allergies Allergy Classification Reported Allergen(s) Allergy Type Date of Onset Reaction(s) Facility Azole Antifungals (1 source) Fluconazole; Translations: [FLUCONAZOLE] Drug Allergy 08-09-2022 [facility] Repository Medications Current Medications Medication Drug Class(es) Dates Sig (Normalized) Sig (Original) [id number] 200 actuat albuterol 0.09 mg/actuat metered dose [...] Problem Classification Problem Date Documented Date Episodic/Chronic Unclassified (1 source) Cough R05.9 Unclassified (1 source) Supraventricular tachycardia, unspecified; Translations: [Supraventricular tachycardia, unspecified] Onset: 04-07-2023 Results Test Name Value Interpretation Reference Range Facility Office Visiton 09-14-2023 Follow-up visit [id number] Estephanie Kothari N 1995 F Date Provider Department Center 09/14/2023 EKATERINA HOUSE CARD [facility] No family history on file Level of Service:11618 [place] OFFICE/OUTPATIENT ESTABLISHED LOW MDM 20 MIN Normal [facility] Office Visiton 04-07-2023 Follow-up visit [id number] Estephanie Kothari N 1995 F Date Provider Department Center 04/07/2023 DLEIA VIZCAINO CARD [facility] No family history on file Level of Service:93964 [place] OFFICE/OUTPATIENT ESTABLISHED LOW MDM 20 MIN Normal [facility] Telemedicineon 10-04-2022 Telemedicine [id number] Estephanie Kothari 1995 F Date Provider Department Center 10/04/2022 LUIS A CHA CARD [facility] No family history on file Level of Service:60136 [place] PHYS/QHP TELEPHONE EVALUATION 21-30 MIN Normal [facility] T4on 07-26-2022 T4 [Mass/Vol] 8.60 ug/dL Normal 4.80-13.90 [facility] Comment on above: Performed By: #### T SH, T4 #### [facility] [address] [place] [address] Dr. Cristiana Bautista TSHon 07-26-2022 TSH 2.139 uIU/mL Normal 0.358-3.740 [facility] Comment on above: Performed By: #### T SH, T4 #### [facility] [address] [address] [address] Cristiana Bautista PAP ACOG PANEL 2: 23 to 31on 06-08-2022 . . Normal [facility] Comment on above: Performed By: #### T SH, T4 #### [facility] [address] [address] [address] Cristiana Bautista Age Gdln ACOG Testing - [facility] Comment on above: Performed By: #### T SH, T4 #### [facility] [address] [address] [address] Cristiana Bautista DIAGNOSIS: Comment [facility] Comment on above: Result Comment: NEGA TIVE FOR INTRAEPITHELIAL LESION OR MALIGNANCY. Performed By: #### T SH, T4 #### [facility] [address] [place] [address] Dr. Cristiana Bautista Methodology: Comment [facility] Comment on above: Result Comment: This liquid based ThinPrep(R) pap test was screened with the use of an image guided system. Performed By: #### T SH, T4 #### [facility] [address] [place] [address] Dr. Cristiana Bautista Note: Comment [facility] Comment on above: Result Comment: The Pap smear is a screening test designed to aid in the detection of premalignant and malignant conditions of the uterine cervix. It is not a diagnostic procedure and should not be used as the sole means of detecting cervical cancer. Both false-positive and false-negative reports do occur. . Performed By: #### T SH, T4 #### [facility] [address] [place] [address] Dr. Cristiana Bautista Performed by: Comment Normal [facility] Comment on above: Result Comment: Claudine Garcia, Front End Loader Operator (ASCP) Performed By: #### T SH, T4 #### [facility] [address] [place] [address] Dr. Cristiana Bautista Reflex Criteria: Comment [facility] Comment on above: Result Comment: The HPV DNA reflex criteria were not met with this specimen result therefore, no HPV testing was performed. . Performed By: #### T SH, T4 #### [facility] [address] [place] [address] Dr. Cristiana Bautista Specimen adequacy: Comment Normal [facility] Comment on above: Result Comment: Sati sfactory for evaluation. Endocervical and/or squamous metaplastic cells (endocervical component) are present. Performed By: #### T SH, T4 #### [facility] [address] [place] [address] Dr. Cristiana Bautista T4on 06-07-2022 T4 [Mass/Vol] 4.70 ug/dL Critically low 4.80-13.90 [facility] Comment on above: Performed By: #### T SH, T4 #### [facility] [address] [place] [address] Dr. Cristiana Bautista TSHon 06-07-2022 TSH 7.684 uIU/mL Critically high 0.358-3.740 [facility] Comment on above: Performed By: #### T LARRY, T4 #### [facility] [address] [place] [address] Dr. Cristiana Bautista VARICELLA IGG ABon 3 Varicella Zoster IgG 273 index Normal Immune >165 [facility] Comment on above: Result Comment: Nega tive <135 Equivocal 135 - 165 Positive >165 A positive result generally indicates exposure to the pathogen or administration of specific immunoglobulins, but it is not indication of active infection or stage of disease. Performed By: #### V ARCEL #### [facility] [address] [place] [address] Dr. Cristiana Bautista CBC AUTO DIFFon 04-23-2022 BASO # 0.0 103/ul Normal 0.0-0.1 [facility] Comment on above: Performed By: #### C BC #### [facility] [address] [place] [address] Dr. Cristiana Bautista Basophils/100 WBC (Bld) 0.4 % Normal 0.2-2.0 [facility] Comment on above: Performed By: #### C BC #### [facility] [address] [place] [address] Dr. Cristiana Bautista EO # 0.1 103/ul Normal 0.0-0.7 [facility] Comment on above: Performed By: #### C BC #### [facility] [address] [place] [address] Dr. Cristiana Bautista Eosinophils/100 WBC (Bld) 2.3 % Normal 0.9-7.0 [facility] Comment on above: Performed By: #### C BC #### [facility] [address] [place] [address] Dr. Cristiana Bautista Erythrocyte distribution width (RBC) [Ratio] 11.3 % Normal 11.0-15.0 [facility] Comment on above: Performed By: #### C BC #### [facility] [address] [place] [address] Dr. Cristiana Bautista Hematocrit (Bld) [Volume fraction] 35.8 % Critically low 36.0-48.0 [facility] Comment on above: Performed By: #### C BC #### [facility] [address] [place] [address] Dr. Cristiana Bautista Hemoglobin (Bld) [Mass/Vol] 13.0 g/dL Normal 12.0-16.0 [facility] Comment on above: Performed By: #### C BC #### [facility] [address] [place] [address] Dr. Cristiana Bautista IG # 0.01 10e3/ul Normal 0.00-0.03 [facility] Comment on above: Performed By: #### C BC #### [facility] [address] [place] [address] Dr. Cristiana Bautista IG % 0.2 % Normal 0.0-0.5 [facility] Comment on above: Performed By: #### C BC #### [facility] [address] [place] [address] Dr. Cristiana Bautista LYMPH # 2.7 103/ul Normal 1.2-3.8 [facility] Comment on above: Performed By: #### C BC #### [facility] [address] [place] [address] Dr. Cristiana Bautista Lymphocytes/100 WBC (Bld) 51.0 % Normal 20.5-60.0 [facility] Comment on above: Performed By: #### C BC #### [facility] [address] [place] [address] Dr. Cristiana Bautista MANUAL DIFF REQ NO Normal [facility] Comment on above: Performed By: #### C BC #### [facility] [address] [place] [address] Dr. Cristiana Bautista MCH (RBC) [Entitic mass] 27.7 pg Normal 26.7-34.0 [facility] Comment on above: Performed By: #### C BC #### [facility] [address] [place] [address] Dr. Cristiana Bautista MCHC (RBC) [Mass/Vol] 36.3 g/dL Critically high 29.9-35.2 [facility] Comment on above: Performed By: #### C BC #### [facility] [address] [place] [address] Dr. Cristiana Bautista MCV (RBC) [Entitic vol] 76.3 fL Critically low 81.0-99.0 [facility] Comment on above: Performed By: #### C BC #### [facility] [address] [place] [address] Dr. Cristiana Bautista MONO # 0.3 103/ul Normal 0.3-0.8 [facility] Comment on above: Performed By: #### C BC #### [facility] [address] [place] [address] Dr. Cristiana Bautista Monocytes/100 WBC (Bld) 6.3 % Normal 1.7-12.0 [facility] Comment on above: Performed By: #### C BC #### [facility] [address] [place] [address] Dr. Cristiana Bautista NEUT # 2.1 103/ul Normal 1.4-6.5 [facility] Comment on above: Performed By: #### C BC #### [facility] [address] [place] [address] Dr. Cristiana Bautista Neutrophils/100 WBC (Bld) 39.8 % Critically low 43.0-75.0 [facility] Comment on above: Performed By: #### C BC #### [facility] [address] [place] [address] Dr. Cristiana Bautista Platelet mean volume (Bld) [Entitic vol] 9.2 fL Critically low 9.5-13.5 [facility] Comment on above: Performed By: #### C BC #### [facility] [address] [place] [address] Dr. Cristiana Bautista PLT 370 103/ul Normal 150-450 [facility] Comment on above: Performed By: #### C BC #### [facility] [address] [place] [address] Dr. Cristiana Bautista RBC 4.69 106/ul Normal 4.20-5.40 [facility] Comment on above: Performed By: #### C BC #### [facility] [address] [place] [address] Dr. Cristiana Bautista WBC 5.3 103/ul Normal 4.0-11.0 [facility] Comment on above: Performed By: #### C BC #### [facility] [address] [place] [address] Dr. Cristiana Bautista DRUG SCREEN RAPID (URINE)on 04-23-2022 AMP Negative Normal NEGATIVE [facility] Comment on above: Performed By: #### T SH, T4 #### [facility] [address] [place] [address] Dr. Cristiana Bautista BAR Negative Normal NEGATIVE [facility] Comment on above: Performed By: #### T SH, T4 #### [facility] [address] [place] [address] Dr. Cristiana Bautista BUP Negative Normal NEGATIVE [facility] Comment on above: Performed By: #### T SH, T4 #### [facility] [address] [place] [address] Dr. Cristiana Bautista BZO Negative Normal NEGATIVE [facility] Comment on above: Performed By: #### T SH, T4 #### [facility] [address] [place] [address] Dr. Cristiana Bautista DEONTE Negative Normal NEGATIVE [facility] Comment on above: Performed By: #### T SH, T4 #### [facility] [address] [place] [address] Dr. Cristiana Bautista CUT-OFFS SEE BELOW Normal [facility] Comment on above: Result Comment: AMP (Amphetamine): [...] Performed By: #### T SH, T4 #### [facility] [address] [place] [address] Dr. Cristiana Bautista DRUG CUT HEADER DRUG CLASS TEST SYSTEM CUT-OFF CONCENTRATIONS ARE FOLLOWS: Normal [facility] Comment on above: Performed By: #### T SH, T4 #### [facility] [address] [place] [address] Dr. Cristiana Bautista mAMP Negative Normal NEGATIVE [facility] Comment on above: Performed By: #### T SH, T4 #### [facility] [address] [place] [address] Dr. Cristiana Bautista MTD Negative Normal NEGATIVE [facility] Comment on above: Performed By: #### T SH, T4 #### [facility] [address] [place] [address] Dr. Cristiana Bautista OPI Negative Normal NEGATIVE [facility] Comment on above: Performed By: #### T SH, T4 #### [facility] [address] [place] [address] Dr. Cristiana Bautista OXY Negative Normal NEGATIVE [facility] Comment on above: Performed By: #### T SH, T4 #### [facility] [address] [place] [address] Dr. Critsiana Bautista PCP Negative Normal NEGATIVE [facility] Comment on above: Performed By: #### T SH, T4 #### [facility] [address] [place] [address] Dr. Cristiana Bautista PPX Negative Normal NEGATIVE [facility] Comment on above: Performed By: #### T SH, T4 #### [facility] [address] [address] [address] Cristiana Bautista TCA Negative Normal NEGATIVE [facility] Comment on above: Performed By: #### T SH, T4 #### [facility] [address] [address] [address] Cristiana Bautista THC Negative Normal NEGATIVE [facility] Comment on above: Performed By: #### T SH, T4 #### [facility] [address] [place] [address] Dr. Cristiana Bautista LIPID PROFILEon 04-23-2022 CHOL-HDL RATIO NORM SEE BELOW Normal [facility] Comment on above: Result Comment: 3.3 - 4.4 LOW RISK 4.4 - 7.1 AVERAGE RISK 7.1 - 11.0 MODERATE RISK >11.0 HIGH RISK Performed By: #### L IPID, CMP #### [facility] [address] [place] [address] Dr. Cristiana Bautista Cholesterol [Mass/Vol] 156 mg/dL Normal <=200 [facility] Comment on above: Performed By: #### L IPID, CMP #### [facility] [address] [place] [address] Dr. Cristiana Bautista Cholesterol in HDL [Mass/Vol] 43 mg/dL Normal 40-60 [facility] Comment on above: Performed By: #### L IPID, CMP #### [facility] [address] [address] [address] Cristiana Bautista Cholesterol in LDL [Mass/Vol] 95.2 mg/dL Normal [facility] Comment on above: Performed By: #### L IPID, CMP #### [facility] [address] [place] [address] Dr. Cristiana Bautista Cholesterol.total/C holesterol in HDL [Mass ratio] 3.6 {ratio} Normal [facility] Comment on above: Performed By: #### L IPID, CMP #### [facility] [address] [address] [address] Cristiana Bautista HDL NORMAL > or = 60 mg/dl - LO W CARDIOVASCULAR RISK <40 mg/dl - HIGH CARDIOVASCULAR RISK Normal [facility] Comment on above: Performed By: #### L IPID, CMP #### [facility] [address] [address] [address] Cristiana Bautista LDL CALC NORMAL SEE BELOW Normal [facility] Comment on above: Result Comment: <100 mg/dl OPTIMAL 100 - 129 mg/dl NEAR OR ABOVE OPTIMAL 130 - 159 mg/dl BORDERLINE HIGH 160 - 189 mg/dl HIGH >190 mg/dl VERY HIGH Performed By: #### L IPID, CMP #### [facility] [address] [place] [address] Dr. Cristiana Bautista Triglyceride [Mass/Vol] 89 mg/dL Normal <=150 [facility] Comment on above: Performed By: #### L IPID, CMP #### [facility] [address] [address] [address] Cristiana Bautista VLDL CALC 17.8 mg/dL Normal [facility] Comment on above: Performed By: #### L IPID, CMP #### [facility] [address] [place] [address] Dr. Cristiana Bautista PROF 14(COMP METB)on 023 Albumin [Mass/Vol] 3.7 g/dL Normal 3.4-5.0 [facility] Comment on above: Performed By: #### L IPID, CMP #### [facility] [address] [place] [address] Dr. Cristiana Bautista Albumin/Globulin [Mass ratio] 1.0 {ratio} Normal [facility] Comment on above: Performed By: #### L IPID, CMP #### [facility] [address] [address] [address] Cristiana Bautista ALP [Catalytic activity/Vol] 72 U/L Normal 46-116 [facility] Comment on above: Performed By: #### L IPID, CMP #### [facility] [address] [address] [address] Cristiana Bautista ALT [Catalytic activity/Vol] 18 U/L Normal 14-59 [facility] Comment on above: Performed By: #### L IPID, CMP #### [facility] [address] [address] [address] Cristiana Bautista Anion gap [Moles/Vol] 11.2 mmol/L Normal [facility] Comment on above: Performed By: #### L IPID, CMP #### [facility] [address] [address] [address] Cristiana Bautista AST [Catalytic activity/Vol] 16 U/L Normal 15-37 [facility] Comment on above: Performed By: #### L IPID, CMP #### [facility] [address] [place] [address] Dr. Cristiana Bautista Bilirubin [Mass/Vol] 0.4 mg/dL Normal 0.2-1.0 [facility] Comment on above: Performed By: #### L IPID, CMP #### [facility] [address] [place] [address] Dr. Cristiana Bautista Calcium [Mass/Vol] 8.8 mg/dL Normal 8.5-10.1 [facility] Comment on above: Performed By: #### L IPID, CMP #### [facility] [address] [place] [address] Dr. Cristiana Bautista Chloride [Moles/Vol] 104 mmol/L Normal 98-107 [facility] Comment on above: Performed By: #### L IPID, CMP #### [facility] [address] [place] [address] Dr. Cristiana Bautista CO2 [Moles/Vol] 29.9 mmol/L Normal 21.0-32.0 [facility] Comment on above: Performed By: #### L IPID, CMP #### [facility] [address] [place] [address] Dr. Cristiana Bautista Creatinine [Mass/Vol] 0.44 mg/dL Critically low 0.55-1.02 [facility] Comment on above: Performed By: #### L IPID, CMP #### [facility] [address] [address] [address] Cristiana Bautista EGFR-AF COMORAN >60 Normal >=60 [facility] Comment on above: Performed By: #### L IPID, CMP #### [facility] [address] [address] [address] Cristiana Bautista EGFR-NON AF COMORAN >60 Normal >=60 [facility] Comment on above: Performed By: #### L IPID, CMP #### [facility] [address] [address] [address] Cristiana Bautista Globulin (S) [Mass/Vol] 3.7 g/dL Normal [facility] Comment on above: Performed By: #### L IPID, CMP #### [facility] [address] [address] [address] Cristiana Bautista Glucose [Mass/Vol] 94 mg/dL Normal 74-106 [facility] Comment on above: Performed By: #### L IPID, CMP #### [facility] [address] [address] [address] Cristiana Bautista Potassium [Moles/Vol] 4.1 mmol/L Normal 3.5-5.1 [facility] Comment on above: Performed By: #### L IPID, CMP #### [facility] [address] [address] [address] Cristiana Bautista Protein [Mass/Vol] 7.4 g/dL Normal 6.4-8.2 [facility] Comment on above: Performed By: #### L IPID, CMP #### [facility] [address] [address] [address] Cristiana Bautista Sodium [Moles/Vol] 141 mmol/L Normal 136-145 [facility] Comment on above: Performed By: #### L IPID, CMP #### [facility] [address] [address] [address] Cristiana Bautista Urea nitrogen [Mass/Vol] 8.0 mg/dL Normal 7.0-18.0 [facility] Comment on above: Performed By: #### L IPID, CMP #### [facility] [address] [place] [address] Dr. Cristiana Bautista Urea nitrogen/Creatinine [Mass ratio] 18.2 mg/mg Normal [facility] Comment on above: Performed By: #### L IPID, CMP #### [facility] [address] [place] [address] Dr. Cristiana Bautista T4on 04-23-2022 T4 [Mass/Vol] 10.10 ug/dL Normal 4.80-13.[address] [facility] Comment on above: Performed By: #### T SH, T4 #### [facility] [address] [place] [address] Dr. Cristiana Bautista TSHon 04-23-2022 TSH Qn m[IU]/L Critically low 0.358-3.740 [facility] Comment on above: Performed By: #### T SH, T4 #### [facility] [address] [place] [address] Dr. Cristiana Bautista COVID/FLU/RSV RT-PCRon 04-19 SARS-CoV-2 (COVID-19) RNA SUARJ+probe Ql (Unsp spec) Negative [facility] Other COVID/FLU/RSV RT-PCR Negative [facility] Other COVID/FLU/RSV RT-PCR neggative [facility] Other T4on 03-12-2022 T4 [Mass/Vol] 15.90 ug/dL Critically high 4.80-13.90 [facility] Comment on above: Performed By: #### T SH, T4 #### [facility] [address] [place] [address] Dr. Cristiana Bautista TSHon 03-12-2022 TSH Qn m[IU]/L Critically low 0.358-3.740 [facility] Comment on above: Performed By: #### T SH, T4 #### [facility] [address] [place] [address] Dr. Cristiana Bautista T4on 02-01-2022 T4 [Mass/Vol] 13.00 ug/dL Normal 4.80-13.90 [facility] Comment on above: Performed By: #### T SH, T4 #### [facility] [address], [place] [address] Dr. Cristiana Bautista TSHon 02-01-2022 TSH 0.001 uIU/mL Critically low 0.358-3.740 [facility] Comment on above: Performed By: #### T SH, T4 #### [facility] [address], [place] [address] Dr. Cristiana Bautista Event Monitoron 01-07-2019 Event [...] BY: Julio Mendenhall MD aek Dictated: 01/07/2019 #[id number] Typed: 01/07/2019 #[id number] cc: Julio Mendenhall MD Normal [facility] Comment on above: Result Comment: Elec tronically Signed By: Za GARCIA, Julio Calabrese\Date and Time Signed: 01/07/19 16:27 EDT Coding Summary.on 12-19-2018 Coding Summary. CODING DATE: 12/19/2018 FINAL [facility] STATUS: Home (Routine DC) PAYOR: Medicaid EAPG [...] Pradhan CphT Date Saved: 12/19/2018 07:42 am [facility] Coding Summary.on 12-03-2018 Coding Summary. CODING DATE: 12/03/2018 FINAL [facility] STATUS: Home (Routine DC) PAYOR: Medicaid EAPG [...] Pradhan CphT Date Saved: 12/03/2018 10:29 am Normal [facility] Echo Transthoracic Completeo n 11-20-2018 Echo Transthoracic Complete Echocardiology Procedure Exam Date/Time Accession # Ordering Echo Transthoracic 11/08/2018 11:47 EDT [id number] Kentrell Perez DO Complete CPT code 66429 Reason for Exam (Echo Transthoracic Complete) MITROVALVE [...] Echocardiology Procedure Exam Date/Time Accession # Ordering Dr. Bell Transthoracic 11/08/2018 11:47 EDT [id number] Kentrell Perez DO Complete Report 9. Pulmonic valve: Structurally normal with trivial pulmonic regurgitation. 10. Pericardium: No effusion seen. 11. Aortic root: Normal in size. IMPRESSION : 1. Technically adequate study. 2. Absence of significant valvular heart disease. 3. Ejection fraction 55-60%. FINAL REPORT Signed (Electronic Signature): 11/20/2018 7:58 pm Signed by: Rosibel Quiroz MD Transcribed by: modesta Technologist: ANAMIKA [facility] Coding Summary.on 11-09-2018 Coding Summary. CODING DATE: 11/09/2018 FINAL [facility] STATUS: Home (Routine DC) PAYOR: Medicaid EAPG [...] Pradhan CphT Date Saved: 11/09/2018 12:11 pm [facility] Vital Signs Date Time Vital Sign Value Performing Clinician Facility 12-03-2022 10:15-0400 Body height 149.86 cm Elle Kaycee Other [facility] Other 12-03-2022 10:15-0400 Body mass index (BMI) [Ratio] 24.84 kg/m2 Elle Benoit Other [facility] Other 12-03-2022 10:15-0400 Body temperature 99.1 [degF] Elle Benoit Other [facility] Other 12-03-2022 10:15-0400 Body weight 55.79 kg Elle Benoit Other [facility] Other 12-03-2022 10:15-0400 Respiratory rate 16 /min Elle Benoit Other [facility] Other 12-03-2022 10:15-0400 SaO2% (BldA) [Mass fraction] 98 % Elle Benoit Other [facility] Other 04-19-2022 11:00-0500 Body height 149.86 cm Clau Genao Other [facility] Other 04-19-2022 11:00-0500 Body mass index (BMI) [Ratio] 24.23 kg/m2 Clau Genao Other [facility] Other 04-19-2022 11:00-0500 Body temperature 99.8 [degF] Clau Genao Other [facility] Other 04-19-2022 11:00-0500 Body weight 54.43 kg Clau Genao Other [facility] Other 04-19-2022 11:00-0500 Respiratory rate 18 /min Clau Genao Other [facility] Other 04-19-2022 11:00-0500 SaO2% (BldA) [Mass fraction] 96 % Clau Genao Other [facility] Other Encounters Encounter Date Encounter Type Care Provider Facility Start: 12-11-2023 End: 12-11-2023 ambulatory GLADIS MICHEL Not Available Start: 09-14-2023 End: 09-14-2023 ambulatory [facility] Start: 04-07-2023 End: 04-07-2023 ambulatory DELIA [facility] Start: 12-03-2022 End: 12-03-2022 ambulatory Elle Benoit Other [facility] Other Start: 12-03-2022 Office outpatient visit 15 minutes Elle Benoit [facility] Start: 10-04-2022 End: 10-06-2022 ambulatory LUIS A DUSTIN [facility] Start: 07-26-2022 End: 07-27-[address] KENTRELL PEREZ Facility:[facility] Start: 06-07-2022 End: 06-08-[address] KENTRELL PEREZ Facility:[facility] Start: 05-31-2022 End: 05-31-2022 ambulatory GLADIS MICHEL Facility:[facility] Start: 05-09-2022 End: 05-10-2022 ambulatory JASBIR HAM Facility:[facility] Start: 04-25-2022 Encounter for genera l adult medical examination without abnormal findings JASBIR HAM [facility] Start: 04-23-2022 End: 04-24-[address] KENTRELL PEREZ Facility:[facility] Start: 04-23-2022 End: 04-24-2022 Encounter for general adult medical examination without abnormal findings JASBIR HAM Facility:[facility] Start: 04-19-2022 End: 04-19-2022 ambulatory Clau Genao Other [facility] Other Start: 04-19-2022 Office outpatient visit 15 minutes Clau Genao [facility] Start: 03-12-2022 End: 03-13-[address] KENTRELL PEREZ Facility:[facility] Start: 02-01-2022 End: 02-02-[address] KENTRELL PEREZ Facility:[facility] Start: 07-05-2021 End: 07-10-2021 Pre-admission assessment Addison Johnson [facility] Payers Date Payer Category Payer Blue Cross Blue [facility] [id number] 1995 Unknown [id number] 2.16.84 [id number] 1995 Unknown [id number] 2.16.84 [id number] 1997 Unknown [id number] 2.16.84 [id number] 1997 Unknown [id number] 2.16.84 [id number] 1997 Unknown [id number] 2.16.84 [id number] 1997 Unknown [id number] 2.16.84 [id number] 1997 Unknown [id number] 2.16.84 [id number] 1997 Unknown [id number] 2.16.84 [id number] 1997 Unknown [id number] 2.16.84 [id number] 1957 [facility] [id number] 1957 Medicaid [id number] Social History Date Type Detail Facility Start: 11-30-2018 Tobacco smoking status Never s moked tobacco (finding) [facility] Sex Assigned At Female [facility] Progress note 09-14-2023 Note Date & Type Note Facility 09-14-2023 Note [facility] Cardiology - [facility] Daily Kothari is a 28 y.o. year old female patient being seen for 6 months FU Patient Active Problem List Diagnosis Paroxysmal SVT (supraventricular tachycardia) (CMS/[facility]) H/O sinus tachycardia Thyroid condition Body mass index (BMI) of 22.0-22.9 in adult Graves disease Routine health maintenance Palpitations Sinus tachycardia HPI Patient is a 28-year-old female who had prior history of palpitations and at 1 point SVT was caught on the monitor. Event monitor: She has been managing well without any treatment. She states that her heart rate still goes up and she feels tachycardic when she exerts herself such as playing soccer. She has been playing soccer with her fianc??? and doing well. She states that her heart rate goes up gradually with exertion and when she sits down to it goes down rather quickly to baseline. She denies any episodes of sudden onset palpitations while she is resting or when she is doing low level of activities. She denies any exertional dyspnea or chest pain. She denies orthopnea or paroxysmal nocturnal dyspnea or dizziness or syncope or near syncope. She denies legs edema or discomfort on exertion. She avoids caffeine and alcohol and she drinks a lot of water. ROS All symptoms were reviewed and they were within normal limits except for the positive findings noted above in the history Past Medical History: Diagnosis Date Arrhythmia No past surgical history on file. No family history on file. Social History Tobacco Use Smoking status: Never Passive exposure: Past Smokeless tobacco: Never Substance Use Topics Alcohol use: Yes Comment: 1-2 drinks monthly Drug use: Never Allergies Allergies Allergen Reactions Diflucan [Fluconazole] GI intolerance Medications Current Outpatient Medications: mv-min/iron/folic/calcium/vitK (WOMEN'S MULTIVITAMIN ORAL), Take 1 tablet by mouth in the morning., Disp: , Rfl: Objective Visit Vitals BP 106/68 (BP Location: Left arm, Patient Position: Sitting) Pulse 71 Ht 1.473 m (4' 10 ) Wt 56.7 kg (125 lb) SpO2 98% BMI 26.13 kg/m??? OB Status Having periods Smoking Status Never BSA 1.52 m??? Physical exam: GENERAL: alert and oriented x3, well developed, in no acute distress. HEAD: atraumatic, normocephalic. EYES: CHADD, EOMI. NECK: trachea midline, no JVD present, no carotid bruits present. CARDIAC: S1, S2 present. RRR. No murmur, rubs, or gallops. RESPIRATORY: CTAB, no increased effort of breathing, no rales, rhonchi, or wheezing. ABDOMEN: soft, nontender, nondistended. EXTREMITIES: no lower extremity edema, peripheral pulses are 2+ bilaterally. No rash/skin discoloration present. NEURO: strength/sensation equal and symmetric in bilateral upper and lower extremities. PSYCH: appropriate mood, affect, and judgement. Recent Labs 09/13/2023 White blood count 7.3, hemoglobin 13.7, hematocrit 41.5, platelets 456 Sodium 133, potassium 3.7, BUN 7, creatinine 1.74, glucose 93, GFR above 60, calcium 9.3 AST 14, ALT 22, alk phos 72, total protein 8.7 TSH 1.112 Labs 07/22/2022 White blood count 5.9, hemoglobin 12.8, hematocrit 38.4, platelets 364 Magnesium 1.8, sodium 134, potassium 3.9, BUN 15, creatinine 1.57, glucose 99, GFR above 90 Imaging and other tests EK08/09/2022 showed sinus bradycardia heart rate 58 bpm, otherwise normal EKG Echo: 04/28/2023 in [facility] 30-day event Monitor: 08/09/2022 to 09/07/2022 No A-fib or V. tach No SVT Long RP tachycardia consistent with sinus tachycardia No symptoms Assessment/Plan 1. Palpitations, mainly due to sinus tachycardia, 1 episode of SVT was recorded once on monitor. Has been well-controlled with conservative management including avoiding stimulants, well hydration, and exercise -Continue current management 2. Sinus tachycardia -Patient was encouraged to continue with exercise, well hydration, and to avoid stimulants such as caffeine and alcohol 3. Paroxysmal SVT (supraventricular tachycardia) (CMS/HCC) -Patient was advised to report if she has episodes of palpitations with increased heart rate to particularly if it starts suddenly and stop suddenly or if it was associated with symptoms. Follow-up with Dr. Beckett in 1 year. Ekaterina Decker MD, [facility] Progress note 09-14-2023 Note Date & Type Note Facility 09-14-2023 Note Patient here for 6 m o follow up paroxysmal SVT. Had labs in Apr 2023. Says the past few months she's been more active, working out 4 times a week. Says symptoms are calmer . She was playing soccer recently and HR got up to 193. Her resting HR hasn't been as high as it was before. Denies chest pain and lightheadedness/syncope. Review of Systems Cardiovascular: Positive for dyspnea on exertion, irregular heartbeat and palpitations. Respiratory: Positive for shortness of breath. All other systems reviewed and are negative. [facility] Progress note 04-07-2023 Note Date & Type Note Facility [...] to wait before deciding medications 10/04/22 dr. beckett HPI: Estephanie Kothari is a 27 y.o. [...] felt close. 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 Says she will be having thyroid function checked soon. C/o palpitations and SOB w/wo exertion. Denies chest pain and lightheadedness. Review of Systems Cardiovascular: Positive for dyspnea on exertion, irregular heartbeat and palpitations. Respiratory: Positive for shortness of breath. All other systems reviewed and are negative. [facility] Evaluation note 12-03-2022 Note Date & Type Note Facility 12-03-2022 Evaluation note Encounter Date Diagnosis Assessment [...] no improvement in 2 to 3 days [facility] Other Progress note 10-04-2022 Note Date & Type Note Facility 10-04-2022 Note NM Electrophysiology Consult Note Date of Telehealth Visit: 10/04/22 The patient was notified that using 3rd republican telecommunication application (e.g., [employer]) is not HIPPA compliant and may carry some privacy risks. Yes The visit was conducted [id number] with the use of audio and video technology Doxy. between patient and provider for a virtual [...] felt close. 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 Tjose with 130-140 likely sinus tachy but one at 170-180bpm maybe SVT. Discussed findings with patient. She has felt better sin (more content not included)... [facility] Evaluation note 04-19-2022 Note Date & Type Note Facility 04-19-2022 Evaluation note Encounter Date Diagnosis Assessment Notes Apr, Cough (ICD-10 - R05.9) Apr, [...] go away, Acute bronchitis material was printed [facility] Other Evaluation + Plan note Note Date & Type Note Facility Evaluation + Plan note No data available for this section [facility] History general Narrative - Reported Note Date & Type Note Facility History general Narrative - Reported Type Medical History mitral valve prolapse Medical History svt's Medical History Graves disease [facility] Other Hospital Discharge instructions Note Date & Type Note Facility Hospital Discharge instructions No data available for this section [facility] Summary Purpose Family History No Family History Records FoundNo Family History Records FoundNo Family History Records FoundNo Family History Records Found Advance Directives No Advanced Directives Records FoundNo Advanced Directives Records FoundNo Advanced Directives Records FoundNo Advanced Directives Records Found Additional Source Comments INFORMATION SOURCE (unrecogn ized section and content) DATE CREATED AUTHOR 01/17/2019 [facility] DATE CREATED AUTHOR AUTHOR'S ORGANIZ ATION 08/01/2022 [facility] DATE CREATED AUTHOR AUTHOR'S ORGANIZ ATION 09/15/2023 [facility] DATE CREATED AUTHOR AUTHOR'S ORGANIZ ATION 12/13/2023 [facility] EPIC REASON FOR VISIT (unrecogniz ed section and [...] BE BASED ON THE PRIMARY CLINICAL RECORDS. [employer] [facility]. provides no warranty or guarantee of the accuracy or completeness of information in this document.
[2023-12-26 17:27] LABS: HCG Quantitative <1 mIU/mL
[2023-12-28 04:12] LABS: FSH 2.3 mIU/mL (.); Luteinizing Hormone(LH) 15.9 mIU/mL (.)
== END 2023-12-26 16:23 | disposition home or self-care (01) ==
LOC: LAB 16:22
PROVIDERS: PCP Nurse Practitioner; Visit Provider Obstetrics & Gynecology
DX: N92.6 Irregular menstruation, unspecified (principal); E28.2 Polycystic ovarian syndrome
CPT/HCPCS: 36415; 82626; 82627; 83001; 83002; 83036; 84439; 84443; 84702

== ENCOUNTER 2023-12-27 12:54 | Outpatient (OUT) | payer BC, SELFPAY ==
--- NOTE | 2023-12-27 12:56 | US_ITS ---
The [address] [address] Patient Name: ARISTEO ROLAND MRN: [id number] date: 1995 Sex: F Assigned Patient Location: [facility] Current Patient Location: Accession/Order Number: [id number] Exam Date: 12/27/2023 12:57 Report Date: 12/28/2023 08:25 At the request of: GLADIS MICHEL Procedure: US pelvis w/ transvaginal EXAMINATION: US pelvis w/ transvaginal HISTORY: IRREGULAR MENSTUAL CYCLE COMPARISON: No relevant comparison available. FINDINGS: Transabdominal and transvaginal images The uterus is normal in size, contour and echotexture measuring 7.8 x 3.8 x 5.2 cm. Uterus is anteverted, anteflexed. No focal myometrial mass. The endometrium measures 1.1 cm, correlate with the menstrual cycle The right ovary is normal in appearance measuring 2.3 x 1.2 x 2.3 cm. Normal color and Doppler flow The left ovary is normal in appearance measuring 3.0 x 1.7 x 3.0 cm. Normal color and Doppler flow US/US pelvis w/ transvaginal IMPRESSION: No acute abnormality Electronically authenticated by: KAMILLE WHITE Date: 12/28/2023 08:25
== END 2023-12-27 12:55 | disposition home or self-care (01) ==
LOC: NOMS 12:54
PROVIDERS: PCP Nurse Practitioner; Visit Provider Obstetrics & Gynecology
DX: N92.6 Irregular menstruation, unspecified (principal); E28.2 Polycystic ovarian syndrome
CPT/HCPCS: 76830; 76856

== ENCOUNTER 2024-09-13 06:48 | Emergency (ER) | payer BC, SELFPAY ==
--- OUTSIDE RECORDS SUMMARY | 2023-11-09 12:15 | XMS_ITS ---
Author Organization [facility] Address [address] [place], [place] [id number] Care Team Providers Care Radio Electronics Officer Name Role Phone Divya Damon Primary Care Provider [phone] REASON FOR VISIT F/U thyroid Social History Sex Assigned At : Social History Observation Description Sex Assigned At Female Encounters Encounter Location Date Provider Diagnosis [place] [address] [place] [address] 11/09/2023 Divya Damon Plan Of Treatment No Information Progress Notes * Estephanie KOTHARI NDOB: [birth year] (29 yo F)Acc No.[id number]:11/09/2023 Medical Note Patient: Marilu PENASTEFANI Estephanie Polanco Provider: Mohan Damon :1995 A ge:28 Y S ex:Female Date:11/09/2023 Address:[address] [place], [place] [id number] Subjective: * Chief Complaints: * 1 . F/U thyroid. * Medical History: Objective: * Vitals: Assessment: Plan: * Treatment: * Billing Information: * Visit Code: * Procedure Codes: * Electronic signature of PRINCESS Gillespie on 09/13/2024 at 07:32 AM EDT Sign off status: Pending * Provider: Mohan Damon Date: 11/09/2023 Generated for Elizabeth nunes/Dipesh/eTransmitting on: 09/13/2024 07:32 AM EDT
--- OUTSIDE RECORDS SUMMARY | 2024-02-23 06:00 | XMS_ITS ---
Author Organization [facility] vices Address [address] [facility] [place] [id number] Care Team Providers Care Fractionation Supervisor Name Role Phone Divya Damon Primary Care Provider [phone] Judith Williamson Unavailable [phone] REASON FOR VISIT Sleeping Issues Social History Sex Assigned At : Social History Observation Description Sex Assigned At Female Encounters Encounter Location Date Provider Diagnosis Main [address] [place], [place] [id number] 02/23/2024 Judith Clay Plan Of Treatment No Information Progress Notes * Estephanie KOTHARI NDOB: [birth year] (29 yo F)Acc No.[id number]:02/23/2024 Medical Note Patient: Estephanie JOSEPH Provider: Hussein Williamson MD :1995 A ge:28 Y S ex:Female Date:02/23/2024 Address:[address] [place], [place] [id number] Pcp:Divya Damon Subjective: * Chief Complaints: * 1 . Sleeping Issues. * Medical History: Objective: * Vitals: Assessment: Plan: * Treatment: * Billing Information: * Visit Code: * Procedure Codes: * Electronic signature of Catalina Williamson MD on 09/13/2024 at 07:32 AM EDT Sign off status: Pending * Provider: Hussein Williamson MD Date: 1 04/24/2023 Generated for Printi ng/Faxing/eTransmitting on: 0 09/13/2024 07:32 AM EDT
[2024-09-13 06:57] VITALS: BP 131/78; PULSE 92; TEMP 37; O2SAT 100; BMI 24.9
--- NOTE | 2024-09-13 07:06 | ECG_ITS ---
The [facility] Test Date: 2024-09-13 Pat Name: ARISTEO ROLAND Department: Room: - Gender: Female Food Processor: : 1995 Requested By: [id number] Order Number: [id number] Reading MD: SHIRA MARQUEZ M.D. Measurements Intervals [place] Rate: 86 P: 61 IA: 152 QRS: 66 QRSD: 84 T: 56 QT: 350 QTc: 394 Interpretive Statements 1100 Sinus rhythm 1102 Sinus arrhythmia 9110 normal ECG Compared to ECG 12/28/2018 13:46:47 No significant changes Electronically Signed On 09-13-2024 17:33:54 EDT by SHIRA MARQUEZ M.D.
[2024-09-13 07:13] LABS: Basophils Percent Auto 0.3 % (0.2-2.0); Eosinophils Absolute Auto 0.2 10^3/uL (0.0-0.7); Eosinophils Percent Auto 2.3 % (0.9-7.0); Hematocrit 37.4 % (36.0-48.0); Hemoglobin 12.9 g/dL (12.0-16.0); Immature Granulocytes Abs Auto 0.02 10^3/uL (0.00-0.03); Immature Granulocytes Pct Auto 0.2 % (0.0-0.5); Lymphocytes Absolute Auto 3.8 10^3/uL (1.2-3.8); Lymphocytes Percent Auto 41.9 % (20.5-60.0); Mean Corpuscular HGB Conc 34.5 g/dL (29.9-35.2); Mean Corpuscular Hemoglobin 28.6 pg (26.7-34.0); Mean Corpuscular Volume 82.9 fL (81.0-99.0); Mean Platelet Volume 9.8 fL (9.5-13.5); Monocytes Absolute Auto 0.6 10^3/uL (0.3-0.8); Monocytes Percent Auto 6.4 % (1.7-12.0); Neutrophils Absolute Auto 4.4 10^3/uL (1.4-6.5); Neutrophils Percent Auto 48.9 % (43.0-75.0); Platelet Count 407 10^3/uL (150-450); Red Blood Count 4.51 10^6/uL (4.20-5.40); Red Cell Distribution Width 12.9 % (11.0-15.0)
--- OUTSIDE RECORDS SUMMARY | 2024-09-13 07:32 | XMS_ITS | Clinical Summary ---
Author Organization [facility] Healthcare Address [address] [place] [address] Care Team Providers Care Extractor Puller Name Role Phone Unavailable Primary Care Provider Unavailabl e Allergies Active Allergy Reactions Criticality Noted Date Comments Fluconazole GI intolerance Low 08/09/2022 Metronidazole 05/29/2023 Other Reaction(s): vomiting Medications albuterol HFA 90 mcg/act inhaler Inhale 2 puffs every 6 (six) hours if needed Active Secnidazole (Solosec) 2 g pack as directed Orally for 1 days 05/31/2022 Active propylthiouraci l (PTU) 50 MG tablet Active methIMAzole (Tapazole) 5 MG tablet Take 0.5 tablets every day by oral route for 28 days. Active metoprolol succinate XL (Toprol-XL) 25 MG 24 hr tablet Take 1 tablet by mouth Daily Active Social History Tobacco Use Types Packs/Day Years Used Date Smoking Tobacco: Never Assessed Comments No Sex and Gender Information Value Date Recorded Sex Assigned at Not on file Legal Sex Female 11:47 PM EDT Gender Identity Female 06/04/2023 7:26 PM EST Sexual Orientation Not on file Last Filed Vital Signs Vital Sign Reading Time Taken Comments Blood Pressure 110/70 12/11/2023 3:46 PM EDT Pulse - - Temperature - - Respiratory Rate - - Oxygen Saturation - - Inhaled Oxygen Concentration - - Weight 57.6 kg (127 lb) 12/11/2023 3:46 PM EDT Height - - Body Mass Index - - Plan of Treatment Health Maintenance Due Date Last Done Comments Influenza Vaccine (Season Ended) 2024 10/15/19 14 Insurance [employer]
--- OUTSIDE RECORDS SUMMARY | 2024-09-13 07:32 | XMS_ITS | Encounter Summary ---
Author Organization [facility] Address [address] [facility] [place] [address] Care Team Providers Care Jukebox Coin Collector Name Role Phone Unavailable Primary Care Provider Unavailabl e Encounter Details Date Type Department Care Team (Late st Contact Info) Description 12/05/2023 Orders Only [facility] [address] [place] [id number] Yvonne Dc LPN [address] [place] [address] Social History Tobacco Use Types Packs/Day Years Used Date Smoking Tobacco: Never Assessed Comments Unknown Sex and Gender Information Value Date Recorded Sex Assigned at Not on file Legal Sex Female 11:47 PM EDT Gender Identity Female 06/04/2023 7:26 PM EST Sexual Orientation Not on file documented as of this encounter Plan of Treatment Not on file documented as of this encounter Procedures Procedure Name Priority Date/Time Associated Diagnosis Comments PAP SMEAR Routine 05/31/2022 12:00 AM EST documented in this encounter Results * Pap Smear (05/31/2022 12:00 AM EST) Swab Cervical swab / Unknown us [facility] Nurse LAB CYTOLOGY ORDERABLES Final Result EXTERNAL LAB documented in this encounter Visit Diagnoses Not on filedocumented in this encounter
--- OUTSIDE RECORDS SUMMARY | 2024-09-13 07:32 | XMS_ITS | Clinical Summary ---
Author Organization [facility] Address [address] [place] [address] Care Team Providers Care Nitroglycerin Supervisor Name Role Phone Divya Damon MD Primary Care Provider [phone] Allergies Active Allergy Reactions Criticality Noted Date Comments Fluconazole GI intolerance Low 08/09/2022 Medications Medication Sig Dispensed Refills Start Date End Date Status mv-min/iron/folic/calci um/vitK (WOMEN'S MULTIVITAMIN ORAL) Take 1 tablet by mouth in the morning. Active Active Problems Problem Noted Date Diagnosed Date Palpitations 09/14/2023 Sinus tachycardia 09/14/2023 Paroxysmal SVT (supraventricular tachycardia) Assessment & Plan (08/10/2022 9:12 AM EDT): - 30-day event monitor to assess for SVT H/O sinus tachycardia 08/10/2022 Assessment & Plan (08/10/2022 9:12 AM EDT): - Per previous monitor in 2019 sinus tachycardia -ECG today sinus bradycardia asymptomatic -30-day event monitor to evaluate for SVT versus sinus tachycardia Thyroid condition 08/10/2022 Assessment & Plan (08/10/2022 9:14 AM EDT): - She has been started on medication which is on hold due to her past levels. Is being managed by PCP -This was not evaluated yet in 2019 when previously seen Body mass index (BMI) of 22.0-22.9 in adult 09/1504/07/2023 Overview (04/07/2023): Last Assessment & Plan: Condition: stable Educated patient on normal BMI range of 18.5 to 24.9 Advised to monitor nutrition to not exceed caloric needs, or as indicated by PCP in order to maintain a healthy weight and BMI. Advised to engage in aerobic physical activity, if indicated to be safe by PCP, to assist with maintaining a healthy weight and BMI. Advised to follow up with PCP to address nutrition as needed to assist with reaching or maintaining a healthy weight and BMI. Follow up in: one year Graves disease 09/26/2019 04/07/2023 Overview (04/07/2023): Last Assessment & Plan: - Continue current regimen Last Assessment & Plan: Condition: stable Follow up in: one year Routine health maintenance 09/26/201904/07 Overview (04/07/2023): Discussed medication compliance. Encouraged to follow-up with PCP. Last Assessment & Plan: Condition: stable Follow up in: one year Social History Tobacco Use Types Packs/Day Years Used Date Smoking Tobacco: Never Passive Smoke Exposure: Past Smokeless Tobacco: Never Tobacco Cessation:Counseling Given: Not Answered Alcohol Use Standard Drinks/Week Comments Yes 0 (1 standard drink = 0.6 oz pur e alcohol) 1-2 drinks monthly [place] Safety & Environment Answer Date Rec orded Fear of Current or Ex-Partner Not on file Emotionally Abused Not on file 06/08/2023 Physically Abused Not on file 06/08/2023 Sexually Abused Not on file 06/08/2023 Physically or Sexually Abused Not on file Sex and Gender Information Value Date Recorded Sex Assigned at Not on file Gender Identity Not on file Sexual Orientation Not on file Last Filed Vital Signs Vital Sign Reading Time Taken Comments Blood Pressure 106/68 09/14/2023 3:21 PM EDT Pulse 71 09/14/2023 3:21 PM EDT Temperature - - Respiratory Rate - - Oxygen Saturation 98% 09/14/2023 3:21 PM EDT Inhaled Oxygen Concentration - - Weight 56.7 kg (125 lb) 09/14/2023 3:21 PM EDT Height 147.3 cm (4' 10 ) 09/14/2023 3:21 PM EDT Body Mass Index 26.13 09/14/2023 3:21 PM EDT Plan of Treatment Upcoming Encounters Date Type Department Care Team (Late st Contact Info) Description 11/01/2024 9:40 AM EDT Office Visit [facility] [address] [place] [address] Julius Cason, TOOL MACHINE SETUP OPERATOR [address] [place] [address] Health Maintenance Due Date Last Done Comments Depression Screening 2009 Varicella Vaccines (1 of 2 - 13+ 2-dose series) 2010 HPV Vaccines (2 - 3-dose series) 03/30/2016 03/02/2016 Pap Smear 2018 Adult Tetanus 08/22/2019 11/23/2010 COVID-19 Vaccine ( season) 2023 01/29/2021, 01/08/2021 Influenza Vaccine (Season Ended) 2024 10/14/2013 Zoster Vaccines (1 of 2) 08/22/2047 HIB Vaccines Completed 01/13/1999, 02/15, 1997, Additional history exists IPV Vaccines Completed 04/23/2003, 02/15, 1997, Additional history exists Meningococcal Vaccine Aged Out 10/14/2013 No margo madhavi eligible based on patient's age to complete this topic Meningococcal B Vaccine Aged Out No l onger eligible based on patient's age to complete this topic Pneumococcal Vaccine: Pediatrics (0 to 5 Years) and At-Risk Patients (6 to 64 Years) Aged Out No longer eligible based on patient's age to complete this topic Rotavirus Vaccines Aged Out No longer eligible based on patient's age to complete this topic Care Teams Nitroglycerin Supervisor Relationship Specialty Start Date End Date Divya Damon MD [address] [place] [phone] PCP - General Nurse Practitioner 09/14/23
--- OUTSIDE RECORDS SUMMARY | 2024-09-13 07:32 | XMS_ITS | Patient Health Record ---
Author Organization [facility] Address [address] [place] [address] Support Name Relationship Address Phone ARISTEO ROLAND Guarantor Unknown [phone] Reason For Referral No Information Problems Problem Type SNOMED Code ICD Code Onset Dates Problem Status W/U Status Risk Notes Problem [id number] History of posttraumatic stress disorder (PTSD) (Z86.59) Active confirmed Problem [id number] LUCERO (generalized anxiety disorder) (F41.1) Active confirmed Plan Of Treatment No Information Insurance Providers Payer Name Payer Address Payer Phone Subscriber Number Group Number Insured Name Patient Relationship to Insured Coverage Start Date Coverage End Date [facility] [address] [address] [place] [address] [id number] ARISTEO ROLAND Self - patient is the insured 1 [facility] MEDICAID [employer] after [facility] [address] [place] [phone] [id number] ARISTEO ROLAND Self - patient is the insured 1
--- OUTSIDE RECORDS SUMMARY | 2024-09-13 07:32 | XMS_ITS | Referral Summary ---
Author Organization [facility] Address [address] [address] Care Team Providers Care Client Account Specialist Name Role Phone Divya Damon MD Primary Care Provider [phone] Allergies Active Allergy Reactions Criticality Noted Date [...] Description 11/01/2024 9:40 AM EDT Office Visit [facility] at [facility] [address] [place] [address] Julius Cason, BAG CUTTER [address] [place] [address] Care Teams Client Account Specialist Relationship Specialty Start Date End Date Divya Damon MD [address] [place] [phone] PCP - General Nurse Practitioner 09/14/23
--- OUTSIDE RECORDS SUMMARY | 2024-09-13 07:32 | XMS_ITS | Encounter Summary ---
Author Organization [facility] Address [address] [place] [address] Care Team Providers Care Biodiesel Technology Manager Name Role Phone Unavailable Primary Care Provider Unavailabl e Encounter Details Date Type Department Care Team ([facility] st Contact Info) Description 12/28/2023 Clinisync Result Encounter [facility] External Department Unsolicited Gladis Uriostegui, DO [address] [facility] [address] [place], [place] [id number] Social History Tobacco Use Types Packs/Day Years [...] Procedure Name Priority Date/Time Associated Diagnosis Comments US PELVIS W/ TRANSVAGINAL 12/28/2023 8:25 AM EDT documented in this encounter Results * US PELVIS W/ TRANSVAGINAL (12/28/2023 8:25 AM EDT) Anatomical Region Laterality Modality Other 12/28/2023 8:25 AM EDT Narrative 12/28/2023 8:28 AM EDT The [address] [address] Ultrasound Report Signed Patient: ESTEPHANIE KOTHARI MR#: [id number] : 1995 Acct:[id number] Age/Sex: 28 / F ADM Date: 12/27/23 Loc: [facility] Attending Dr: Gladis Uriostegui D.O. Ordering Physician: Gladis Uriostegui D.O. Date of Service: 12/27/23 Procedure(s): US pelvis w/ transvaginal Accession Number(s): [id number] cc: Gladis Uriostegui D.O.; Divya Damon NP The [place] [id number] Patient Name: ESTEPHANIE KOTHARI MRN: [id number] date: 1995 Sex: F Assigned Patient Location: [facility] Current Patient Location: Accession/Order Number: [id number] Exam Date: 12/27/2023 12:57 Report Date: 12/28/2023 08:25 At the request of: GLADIS URIOSTEGUI Procedure: US pelvis w/ transvaginal EXAMINATION: US pelvis w/ transvaginal HISTORY: IRREGULAR MENSTUAL CYCLE COMPARISON: No relevant comparison available. FINDINGS: Transabdominal and transvaginal images The uterus is normal in size, contour and echotexture measuring 7.8 x 3.8 x 5.2 cm. Uterus is anteverted, anteflexed. No focal myometrial mass. The endometrium measures 1.1 cm, correlate with the menstrual cycle The right ovary is normal in appearance measuring 2.3 x 1.2 x 2.3 cm. Normal color and Doppler flow The left ovary is normal in appearance measuring 3.0 x 1.7 x 3.0 cm. Normal color and Doppler flow US/US pelvis w/ transvaginal IMPRESSION: No acute abnormality Electronically authenticated by: KAMILLE WHITE Date: 12/28/2023 08:25 Dictated By: Kamille White M.D. Signed By: 12/28/23827 DD/ 4 TD/TT: Hris Developer: Procedure Note Radiology, Radiologist, - 12/28/2023 [place] [address] Ultrasound Report Signed Patient: ESTEPHANIE KOTHARI NMR#: [id number] : 1995Acct:[id number] Age/Sex: 28 / FADM Date: 12/27/23 Loc: [facility] Attending Dr: Gladis Uriostegui D.O. Ordering Physician: Gladis Uriostegui D.O. Date of Service: 12/27/23 Procedure(s): US pelvis w/ transvaginal Accession Number(s): [id number] cc: Gladis Uriostegui D.O.; Divya Damon NP [place] [id number] Patient Name: ESTEPHANIE KOTHARI MRN: [id number] date: 1995 Sex: F Assigned Patient Location: [facility] Current Patient Location: Accession/Order Number: [id number] Exam Date: 12/27/2023 12:57 Report Date: 12/28/2023 08:25 At the request of: GLADIS URIOSTEGUI Procedure: US pelvis w/ transvaginal EXAMINATION: US pelvis w/ transvaginal HISTORY: IRREGULAR MENSTUAL CYCLE COMPARISON: No relevant comparison available. FINDINGS: Transabdominal and transvaginal images The uterus is normal in size, contour and echotexture measuring 7.8 x 3.8x 5.2 cm. Uterus is anteverted, anteflexed. No focal myometrial mass. The endometrium measures 1.1 cm, correlate with the menstrual cycle The right ovary is normal in appearance measuring 2.3 x 1.2 x 2.3 cm.Normal color and Doppler flow The left ovary is normal in appearance measuring 3.0 x 1.7 x 3.0 cm.Normal color and Doppler flow US/US pelvis w/ transvaginal IMPRESSION: No acute abnormality Electronically authenticated by: KAMILLE WHITE Date: 12/28/2023 08:25 Dictated By: Kamille White M.D. Signed By:12/28/23827 DD/ 4 TD/TT: Hris Developer: Gladis Uriostegui DO [facility] Final Result documented in this encounter Visit Diagnoses Not on filedocumented in this encounter
--- OUTSIDE RECORDS SUMMARY | 2024-09-13 07:32 | XMS_ITS | Clinical Summary ---
Author Organization [facility] Address [id number] [address] [place] [address] Care Team Providers Care Designer Writer Name Role Phone Kentrell Bobo DO Primary Care Provider [phone] Allergies Active Allergy Reactions Criticality Noted Date Comments Fluconazole 08/11/2022 Medications azithromycin (ZITHROMAX) 250 mg tablet Take 1 tablet (250 mg total) by mouth in the morning. Take 2 tablets the first day, then 1 tablet daily for 4 days.. Active albuterol (PROVENTIL HFA;VENTOLIN HFA) 90 mcg/actuation inhaler Inhale 2 puffs every 6 (six) hours as needed for wheezing. Active benzonatate (TESSALON PERLES) 100 mg capsule Take 1 capsule (100 mg total) by mouth 3 (three) times a day as needed for cough. Active propylthiouraci L (PTU) 50 mg tablet Take by mouth 3 (three) times a day. Active naproxen (NAPROSYN) 500 mg tablet Take 1 tablet (500 mg total) by mouth in the morning and 1 tablet (500 mg total) in the evening. Take with meals. 30 tablet Active Additional Information Patient not taking.Reported on 08/11/2022 Social History Tobacco Use Types Packs/Day Years Used Date Smoking Tobacco: Never Smokeless Tobacco: Never Tobacco Cessation:Counseling Given: Not Answered Alcohol Use Standard Drinks/Week Comments Yes 1 (1 standard drink = 0.6 oz pur e alcohol) Childcare Answer Date Recorded Childcare Unknown 09/26/2018 Employment Answer Date Recorded Employment Unknown 09/26/2018 Hunger Screening Answer Date Recorded Within the past 12 months we worried whether our food would run out before we got money to buy more. Never True 08/11/2022 Within the past 12 months th e food we bought just didn't last and we didn't have money to get more. Never True 08/11/2022 Comments No Sex and Gender Information Value Date Recorded Sex Assigned at Not on file Legal Sex Female 11:55 AM EDT Gender Identity Not on file Sexual Orientation Not on file Last Filed Vital Signs Vital Sign Reading Time Taken Comments Blood Pressure 108/84 08/11/2022 9:32 AM EDT Pulse 68 08/11/2022 9:32 AM EDT Temperature 36.8 C (98.2 F) 08/11/2022 7:57 AM EDT Respiratory Rate 16 08/11/2022 9:32 AM EDT Oxygen Saturation 100% 08/11/2022 9:32 AM EDT Inhaled Oxygen Concentration - - Weight 56.2 kg (124 lb) 08/11/2022 7:57 AM EDT Height 147.3 cm (4' 10 ) 08/11/2022 7:57 AM EDT Body Mass Index 25.92 08/11/2022 7:57 AM EDT Plan of Treatment Health Maintenance Due Date Last Done Comments Depression Screening 2009 Pap Smear 2018 DTaP,Tdap and Td Vaccines (7 - Td or Tdap) 11/23/2020 11/23/2010, 04/23/2003, 01/13/1999, Additional history exists Adult BMI Screening 08/12/2023 08/11/2022 Tobacco Screening 08/12/2023 COVID-19 Vaccine (2023-2 5 season) 2023 01/29/2021, 01/08/2021 Influenza Vaccine 12/16/2024 10/14/2013 Medical Devices Not on file [place] [address] [place] [address] [facility] [facility] MEDICA[employer] Care Teams Designer Writer Relationship Specialty Start Date End Date Kentrell Bobo DO PCP - General Family Medicine 04/21/22
[2024-09-13 07:33] LABS: Alanine Aminotransferase 19 U/L (14-59); Albumin Level 3.9 g/dL (3.4-5.0); Alkaline Phosphatase 66 U/L (46-116); Anion Gap 16.2; Aspartate Amino Transferase 18 U/L (15-37); BUN Creatinine Ratio 14.9; Bilirubin Total 0.7 mg/dL (0.2-1.0); Carbon Dioxide 25.5 mmol/L (21.0-32.0); Chloride 103 mmol/L (98-107); Estimated GFR (African America >60 (>=60 mL/min/1.73m^2); Estimated GFR (Non-African Ame >60 (>=60 mL/min/1.73m^2); Globulin 3.9 g/dL; Glucose 101 mg/dL (74-106); Potassium 3.7 mmol/L (3.5-5.1); Sodium 141 mmol/L (136-145); Total Protein 7.8 g/dL (6.4-8.2)
--- OUTSIDE RECORDS SUMMARY | 2024-09-13 07:33 | XMS_ITS | CCD ---
Author Organization [facility] Care Team Providers Care Neuroscientist Name Role Phone Kentrell Perez Primary Care Physician Clau Genao Unavailable HOUSE, DR SWAIN Admitting Unavailable HOUSE, DR SWAIN Attending Unavailable HOUSE, DR SWAIN Primary Care Unavailable HOUSE, DR SWAIN Consulting Unavailable WARNER ROBINS, DR SWAIN Admitting Unavailable HOUSE, DR SWAIN Attending Unavailable HOUSE, DR SWAIN Primary Care Unavailable HOUSE, DR SWAIN Consulting Unavailable WARNER ROBINS, DR SWAIN Admitting Unavailable HOUSE, DR SAWIN Attending Unavailable HOUSE, DR SWAIN Primary Care Unavailable HOUSE, DR SWAIN Consulting Unavailable JITENDRA, JASBIR Admitting Unavailable JITENDRA, JASBIR Attending Unavailable HAM, JASBIR Consulting Unavailable HAM, JASBIR Admitting Unavailable HAM, JASBIR Attending Unavailable HOUSE, DR SWAIN Primary Care Unavailable JITENDRA, JASBIR Consulting Unavailable MOODY, GLADIS Admitting Unavailable MOODY, GLADIS Attending Unavailable HOUSE, DR SWAIN Primary Care Unavailable MOODY, GLADIS Consulting Unavailable WARNER ROBINS, DR SWAIN Admitting Unavailable HOUSE, DR SWAIN Attending Unavailable HOUSE, DR SWAIN Primary Care Unavailable HOUSE, DR SWANI Consulting Unavailable WARNER ROBINS, DR SWAIN Admitting Unavailable HOUSE, DR SWAIN Attending Unavailable HOUSE, DR SWAIN Primary Care Unavailable HOUSE, DR SWAIN Consulting Unavailable Elle Benoit Unavailable DELIA DIAZ Attending Unavailable SHAWNAEKATERINA Attending Unavailable DUSTIN, LUIS A Attending Unavailable MOODY, GLADIS Attending Unavailable Unavailable Primary Care Provider Unavailabl e Allergies Allergy Classification Reported Allergen(s) Allergy Type Date of Onset Reaction(s) Facility Azole Antifungals (1 source) Fluconazole; Translations: [FLUCONAZOLE] Drug Allergy 3 [facility] Repository (6 sources) Fluconazole Propensity to adverse reactions 3 GI intolerance [facility] Work Phone: (6 sources) metroNIDAZOLE Drug Allergy 4 [facility] Medications Current Medications Medication Drug Class(es) Dates Sig (Normalized) Sig (Original) [id number] 200 actuat albuterol 0.09 mg/actuat metered dose inhaler (6 sources) beta2-Adrenergic Agonist Start: 04-19-2022 take 2 puff(s) by inhalation every four hours as needed Albuterol Sulfate HFA 108 (90 Base) MCG/ACT 2 puffs as needed Inhalation every 4 hrs Apr, Active take 2 puff(s) by in halation every six hours albuterol HFA 90 mcg/act inhaler Inhale 2 puffs every 6 (six) hours if needed Active benzonatate 100 mg oral capsule (1 source) Non-narcotic Antitussive Start: 04-19-2022 take 1 capsule by mouth every eight hours Tessalon Perles 100 MG 1 capsule as needed Orally Three times a day Apr, Active methIMAzole 5 mg oral tablet (6 sources) Thyroid Hormone Synthesis Inhibitor Start: 11-30-2018 take 2.5 mg by mouth once daily Tapazole 5 mg Tab 2.5 mg, Oral, Daily Start Date: 11/30/18 Status: Ordered take 0.5 tablet by mouth once da kyler methIMAzole (Tapazole) 5 MG tablet Take 0.5 tablets every day by oral route for 28 days. Active methylPREDNISolone 4 mg oral tablet (1 source) Corticosteroid Start: 04-19-2022 methylPREDNISolone 4 MG as directed Orally Once a day for 6 days Apr, Active 24 hr metoprolol succinate 25 mg extended release oral tablet (5 sources) beta-Adrenergic Frida take 1 tablet by mouth once daily metoprolol succinate XL (Toprol-XL) 25 MG 24 hr tablet Take 1 tablet by mouth Daily Active predniSONE 20 mg oral tablet (1 source) Start: 12-03-2022 take 1 tablet by mouth every twelve hours predniSONE 20 MG 1 tablet Orally bid for 5 day(s) Nov, Active propylthiouracil 50 mg oral tablet (6 sources) Thyroid Hormone Synthesis Inhibitor propylthiouracil (PTU) 50 MG tablet Active secnidazole 2000 mg oral granules (5 sources) Start: 05-31-2022 Secnidazole (Solosec) 2 g pack as directed Orally for 1 days 05/31/2022 Active Completed/Discontinued Medications Medication Drug Class(es) Dates [...] not specified as acute or chronic Episodic Menstrual disorders (2 sources) Irregular periods; Translations: [Irregular menstruation, unspecified] 12-11-2023 Chronic Other endocrine disorders (4 sources) Polycystic ovary syndrome; Translations: [Polycystic ovarian syndrome] 01-31-2024 Chronic Other screening for suspected conditions (not mental [...] Problem Classification Problem Date Documented Date Episodic/Chronic Inflammatory diseases of female pelvic organs (2 sources) Bacterial vaginosis; Translations: [Acute vaginitis] 12-11-2023 Episodic Unclassified (1 source) Cough R05.9 Unclassified (1 source) Supraventricular tachycardia, unspecified; Translations: [Supraventricular tachycardia, unspecified] Onset: 04-07-2023 Results Test Name Value Interpretation Reference Range Facility [facility] PREG QUANT HCGon 024 HCG QUANTITATIVE <1 mIU/mL [facility] Comment on above: 5-50 0.2-1 WEEK 50-500 1-2 WEEKS 100-5,000 2-3 WEEKS 500-10,000 3-4 WEEKS 1,000-50,000 4-5 WEEKS 10,000-100,000 5-6 WEEKS 15,000-200,000 6-8 WEEKS 10,000-100,000 2-3 [facility]-14-2023 Follow-up visit [id number] Harpreet Kotharisey N 1995 F Date Provider Department Center 09/14/2023 [id number], SILVANAEVAN CARD [facility] No family history on file Level of Service:80163 [place] OFFICE/OUTPATIENT ESTABLISHED LOW MDM 20 MIN Normal [facility] Office Visiton 04-07-2023 Follow-up visit [id number] Estephanie Kothari N 1995 F Date Provider Department Center 04/07/2023 DELIA VIZCAINO CARD [facility] No family history on file Level of Service:52989 [place] OFFICE/OUTPATIENT ESTABLISHED LOW MDM 20 MIN Normal [facility] Telemedicineon 10-04-2022 Telemedicine [id number] Estephanie Kothari 1995 Date Provider Department Center 10/04/2022 HectorLUIS A MCCARTY ZAIRE [facility] No family history on file Level of Service:40416 [place] PHYS/QHP TELEPHONE EVALUATION 21-30 MIN [facility] T4on 07-26-2022 T4 [Mass/Vol] 8.60 ug/dL Normal 4.80-13.90 [facility] Comment on above: Performed By: #### T SH, T4 #### [facility] [address] [place] [address] Dr. Cristiana Bautista TSHon 07-26-2022 TSH 2.139 uIU/mL Normal 0.358-3.740 [facility] Comment on above: Performed By: #### T SH, T4 #### [facility] [address] [place] [address] Dr. Cristiana Bautista PAP ACOG PANEL 2: 21 to 29on 06-08-2022 . . Normal [facility] Comment on above: Performed By: #### T SH, T4 #### [facility] [address] [place] [address] Dr. Cristiana Bautista Age Gdln ACOG Testing 21-29 Normal [facility] Comment on above: Performed By: #### T SH, T4 #### [facility] [address] [place] [address] Dr. Cristiana Bautista DIAGNOSIS: Comment Normal [facility] Comment on above: Result Comment: NEGA TIVE FOR INTRAEPITHELIAL LESION OR MALIGNANCY. Performed By: #### T SH, T4 #### [facility] [address] [place] [address] Dr. Cristiana Bautista Methodology: Comment Normal [facility] Comment on above: Result Comment: This liquid based ThinPrep(R) pap test was screened with the use of an image guided system. Performed By: #### T SH, T4 #### [facility] [address] [place] [address] Dr. Cristiana Bautista Note: Comment [facility] Comment on above: Result Comment: The Pap smear is a screening test designed to aid in the detection of premalignant and malignant conditions of the uterine cervix. It is not a diagnostic procedure and should not be used as the sole means of detecting cervical cancer. Both false-positive and false-negative reports do occur. . Performed By: #### T SH, T4 #### [facility] [address] [place] [address] Dr. Cristiana Bautista Performed by: Comment Normal [facility] Comment on above: Result Comment: Claudine Garcia, Polytechnic Registrar (ASCP) Performed By: #### T SH, T4 #### [facility] [address] [place] [address] Dr. Cristiana Bautista Reflex Criteria: Comment Normal [facility] Comment on above: Result Comment: The HPV DNA reflex criteria were not met with this specimen result therefore, no HPV testing was performed. . Performed By: #### T SH, T4 #### [facility] [address] [place] [address] Dr. Cristiana Bautista Specimen adequacy: Comment Normal [facility] Comment on above: Result Comment: Sati sfactory for evaluation. Endocervical and/or squamous metaplastic cells (endocervical component) are present. Performed By: #### T SH, T4 #### [facility] [address] [place] [address] Dr. Cristiana Bautista T4on 06-07-2022 T4 [Mass/Vol] 4.70 ug/dL Critically low 4.80-13.90 [facility] Comment on above: Performed By: #### T SH, T4 #### [facility] [address] [place] [address] Dr. Cristiana Bautista TSHon 06-07-2022 TSH 7.684 uIU/mL Critically high 0.358-3.740 [facility] Comment on above: Performed By: #### T SH, T4 #### [facility] [address] [place] [address] Dr. Cristiana Bautista VARICELLA IGG ABon Varicella Zoster IgG 273 index Normal Immune >165 [facility] Comment on above: Result Comment: Nega tive <135 Equivocal 135 - 165 Positive >165 A positive result generally indicates exposure to the pathogen or administration of specific immunoglobulins, but it is not indication of active infection or stage of disease. Performed By: #### V ARCEL #### [facility] [address] [place] [address] Dr. Cristiana Bautista CBC AUTO DIFFon 04-23-2022 BASO # 0.0 103/ul Normal 0.0-0.1 [facility] Comment on above: Performed By: #### C BC #### [facility] [address] [place] [address] Dr. Cristiana Bautista Basophils/100 WBC (Bld) 0.4 % Normal 0.2-2.0 [facility] Comment on above: Performed By: #### C BC #### [facility] [address] [place] [address] Dr. Cristiana Bautista EO # 0.1 103/ul Normal 0.0-0.7 [facility] Comment on above: Performed By: #### C BC #### [facility] [address] [place] [address] Dr. Cristiana Bautista Eosinophils/100 WBC (Bld) 2.3 % Normal 0.9-7.0 [facility] Comment on above: Performed By: #### C BC #### [facility] [address] [place] [address] Dr. Cristiana Bautista Erythrocyte distribution width (RBC) [Ratio] 11.3 % Normal 11.0-15.0 [facility] Comment on above: Performed By: #### C BC #### [facility] [address] [place] [address] Dr. Cristiana Bautista Hematocrit (Bld) [Volume fraction] 35.8 % Critically low 36.0-48.0 [facility] Comment on above: Performed By: #### C BC #### [facility] [address] [place] [address] Dr. Cristiana Bautista Hemoglobin (Bld) [Mass/Vol] 13.0 g/dL Normal 12.0-16.0 [facility] Comment on above: Performed By: #### C BC #### [facility] [address] [place] [address] Dr. Cristiana Bautista IG # 0.01 10e3/ul Normal 0.00-0.03 [facility] Comment on above: Performed By: #### C BC #### [facility] [address] [place] [address] Dr. Cristiana Bautista IG % 0.2 % Normal 0.0-0.5 [facility] Comment on above: Performed By: #### C BC #### [facility] [address] [place] [address] Dr. Cristiana Bautista LYMPH # 2.7 103/ul Normal 1.2-3.8 [facility] Comment on above: Performed By: #### C BC #### [facility] [address] [place] [address] Dr. Cristiana Bautista Lymphocytes/100 WBC (Bld) 51.0 % Normal 20.5-60.0 [facility] Comment on above: Performed By: #### C BC #### [facility] [address] [place] [address] Dr. Cristiana Bautista MANUAL DIFF REQ NO Normal [facility] Comment on above: Performed By: #### C BC #### [facility] [address] [address] [address] Cristiana Bautista MCH (RBC) [Entitic mass] 27.7 pg Normal 26.7-34.0 [facility] Comment on above: Performed By: #### C BC #### [facility] [address] [place] [address] Dr. Cristiana Bautista MCHC (RBC) [Mass/Vol] 36.3 g/dL Critically high 29.9-35.2 [facility] Comment on above: Performed By: #### C BC #### [facility] [address] [place] [address] Dr. Cristiana Bautista MCV (RBC) [Entitic vol] 76.3 fL Critically low 81.0-99.0 [facility] Comment on above: Performed By: #### C BC #### [facility] [address] [place] [address] Dr. Cristiana Bautista MONO # 0.3 103/ul Normal 0.3-0.8 [facility] Comment on above: Performed By: #### C BC #### [facility] [address] [place] [address] Dr. Cristiana Bautista Monocytes/100 WBC (Bld) 6.3 % Normal 1.7-12.0 [facility] Comment on above: Performed By: #### C BC #### [facility] [address] [place] [address] Dr. Cristiana Bautista NEUT # 2.1 103/ul Normal 1.4-6.5 [facility] Comment on above: Performed By: #### C BC #### [facility] [address] [place] [address] Dr. Cristiana Bautista Neutrophils/100 WBC (Bld) 39.8 % Critically low 43.0-75.0 [facility] Comment on above: Performed By: #### C BC #### [facility] [address] [place] [address] Dr. Cristiana Bautista Platelet mean volume (Bld) [Entitic vol] 9.2 fL Critically low 9.5-13.5 [facility] Comment on above: Performed By: #### C BC #### [facility] [address] [address] [address] Cristiana Bautista PLT 370 103/ul Normal 150-450 [facility] Comment on above: Performed By: #### C BC #### [facility] [address] [place] [address] Dr. Cristiana Bautista RBC 4.69 106/ul Normal 4.20-5.40 [facility] Comment on above: Performed By: #### C BC #### [facility] [address] [place] [address] Dr. Cristiana Bautista WBC 5.3 103/ul Normal 4.0-11.0 [facility] Comment on above: Performed By: #### C BC #### [facility] [address] [place] [address] Dr. Cristiana Bautista DRUG SCREEN RAPID (URINE)on 04-23-2022 AMP Negative Normal NEGATIVE [facility] Comment on above: Performed By: #### T SH, T4 #### [facility] [address] [place] [address] Dr. Cristiana Bautista BAR Negative Normal NEGATIVE [facility] Comment on above: Performed By: #### T SH, T4 #### [facility] [address] [place] [address] Dr. Cristiana Bautista BUP Negative Normal NEGATIVE [facility] Comment on above: Performed By: #### T SH, T4 #### [facility] [address] [place] [address] Dr. Cristiana Bautista BZO Negative Normal NEGATIVE [facility] Comment on above: Performed By: #### T SH, T4 #### [facility] [address] [place] [address] Dr. Cristiana Bautista DEONTE Negative Normal NEGATIVE [facility] Comment on above: Performed By: #### T SH, T4 #### [facility] [address] [place] [address] Dr. Cristiana Bautista CUT-OFFS SEE BELOW Normal [facility] Comment on above: Result Comment: AMP [...] Performed By: #### T SH, T4 #### [facility] [address] [place] [address] Dr. Cristiana Bautista DRUG CUT HEADER DRUG CLASS TEST SYSTEM CUT-OFF CONCENTRATIONS ARE FOLLOWS: Normal [facility] Comment on above: Performed By: #### T SH, T4 #### [facility] [address] [place] [address] Dr. Cristiana Bautista mAMP Negative Normal NEGATIVE [facility] Comment on above: Performed By: #### T SH, T4 #### [facility] [address] [place] [address] Dr. Cristiana Bautista MTD Negative Normal NEGATIVE [facility] Comment on above: Performed By: #### T SH, T4 #### [facility] [address] [place] [address] Dr. Cristiana Bautista OPI Negative Normal NEGATIVE [facility] Comment on above: Performed By: #### T SH, T4 #### [facility] [address] [place] [address] Dr. Cristiana Bautista OXY Negative Normal NEGATIVE [facility] Comment on above: Performed By: #### T SH, T4 #### [facility] [address] [place] [address] Dr. Cristiana Bautista PCP Negative Normal NEGATIVE [facility] Comment on above: Performed By: #### T SH, T4 #### [facility] [address] [place] [address] Dr. Cristiana Bautista PPX Negative Normal NEGATIVE [facility] Comment on above: Performed By: #### T SH, T4 #### [facility] [address] [address] [address] Cristiana Bautista TCA Negative Normal NEGATIVE [facility] Comment on above: Performed By: #### T SH, T4 #### [facility] [address] [address] [address] Cristiana Bautista THC Negative Normal NEGATIVE [facility] Comment on above: Performed By: #### T SH, T4 #### [facility] [address] [address] [address] Cristiana Bautista LIPID PROFILEon 04-23-2022 CHOL-HDL RATIO NORM SEE BELOW Normal [facility] Comment on above: Result Comment: 3.3 - 4.4 LOW RISK 4.4 - 7.1 AVERAGE RISK 7.1 - 11.0 MODERATE RISK >11.0 HIGH RISK Performed By: #### L IPID, CMP #### [facility] [address] [place] [address] Dr. Cristiana Bautista Cholesterol [Mass/Vol] 156 mg/dL Normal <=200 [facility] Comment on above: Performed By: #### L IPID, CMP #### [facility] [address] [place] [address] Dr. Cristiana Bautista Cholesterol in HDL [Mass/Vol] 43 mg/dL Normal 40-60 [facility] Comment on above: Performed By: #### L IPID, CMP #### [facility] [address] [place] [address] Dr. Cristiana Bautista Cholesterol in LDL [Mass/Vol] 95.2 mg/dL Normal [facility] Comment on above: Performed By: #### L IPID, CMP #### [facility] [address] [place] [address] Dr. Cristiana Bautista Cholesterol.total/C holesterol in HDL [Mass ratio] 3.6 {ratio} Normal [facility] Comment on above: Performed By: #### L IPID, CMP #### [facility] [address] [place] [address] Dr. Cristiana Bautista HDL NORMAL > or = 60 mg/dl - LO W CARDIOVASCULAR RISK <40 mg/dl - HIGH CARDIOVASCULAR RISK Normal [facility] Comment on above: Performed By: #### L IPID, CMP #### [facility] [address] [place] [address] Dr. Cristiana Bautista LDL CALC NORMAL SEE BELOW Normal [facility] Comment on above: Result Comment: <100 mg/dl OPTIMAL 100 - 129 mg/dl NEAR OR ABOVE OPTIMAL 130 - 159 mg/dl BORDERLINE HIGH 160 - 189 mg/dl HIGH >190 mg/dl VERY HIGH Performed By: #### L IPID, CMP #### [facility] [address] [place] [address] Dr. Cristiana Bautista Triglyceride [Mass/Vol] 89 mg/dL Normal <=150 [facility] Comment on above: Performed By: #### L IPID, CMP #### [facility] [address] [place] [address] Dr. Cristiana Bautista VLDL CALC 17.8 mg/dL Normal [facility] Comment on above: Performed By: #### L IPID, CMP #### [facility] [address] [place] [address] Dr. Cristiana Bautista PROF 14(COMP METB)on 023 Albumin [Mass/Vol] 3.7 g/dL Normal 3.4-5.0 [facility] Comment on above: Performed By: #### L IPID, CMP #### [facility] [address] [place] [address] Dr. Cristiana Bautista Albumin/Globulin [Mass ratio] 1.0 {ratio} Normal [facility] Comment on above: Performed By: #### L IPID, CMP #### [facility] [address] [place] [address] Dr. Cristiana Bautista ALP [Catalytic activity/Vol] 72 U/L Normal 46-116 [facility] Comment on above: Performed By: #### L IPID, CMP #### [facility] [address] [place] [address] Dr. Cristiana Bautista ALT [Catalytic activity/Vol] 18 U/L Normal 14-59 [facility] Comment on above: Performed By: #### L IPID, CMP #### [facility] [address] [place] [address] Dr. Cristiana Bautista Anion gap [Moles/Vol] 11.2 mmol/L Normal [facility] Comment on above: Performed By: #### L IPID, CMP #### [facility] [address] [place] [address] Dr. Cristiana Bautista AST [Catalytic activity/Vol] 16 U/L Normal 15-37 [facility] Comment on above: Performed By: #### L IPID, CMP #### [facility] [address] [place] [address] Dr. Cristiana Bautista Bilirubin [Mass/Vol] 0.4 mg/dL Normal 0.2-1.0 [facility] Comment on above: Performed By: #### L IPID, CMP #### [facility] [address] [place] [address] Dr. Cristiana Bautista Calcium [Mass/Vol] 8.8 mg/dL Normal 8.5-10.1 [facility] Comment on above: Performed By: #### L IPID, CMP #### [facility] [address] [place] [address] Dr. Cristiana Bautista Chloride [Moles/Vol] 104 mmol/L Normal 98-107 [facility] Comment on above: Performed By: #### L IPID, CMP #### [facility] [address] [place] [address] Dr. Cristiana Bautista CO2 [Moles/Vol] 29.9 mmol/L Normal 21.0-32.0 [facility] Comment on above: Performed By: #### L IPID, CMP #### [facility] [address] [place] [address] Dr. Cristiana Bautista Creatinine [Mass/Vol] 0.44 mg/dL Critically low 0.55-1.02 [facility] Comment on above: Performed By: #### L IPID, CMP #### [facility] [address] [place] [address] Dr. Cristiana Bautista EGFR-AF MONTENEGRIN >60 Normal >=60 [facility] Comment on above: Performed By: #### L IPID, CMP #### [facility] [address] [place] [address] Dr. Cristiana Bautista EGFR-NON AF MONTENEGRIN >60 Normal >=60 [facility] Comment on above: Performed By: #### L IPID, CMP #### [facility] [address] [place] [address] Dr. Cristiana Bautista Globulin (S) [Mass/Vol] 3.7 g/dL Normal [facility] Comment on above: Performed By: #### L IPID, CMP #### [facility] [address] [address] [address] Cristiana Bautista Glucose [Mass/Vol] 94 mg/dL Normal 74-106 [facility] Comment on above: Performed By: #### L IPID, CMP #### [facility] [address] [place] [address] Dr. Cristiana Bautista Potassium [Moles/Vol] 4.1 mmol/L Normal 3.5-5.1 [facility] Comment on above: Performed By: #### L IPID, CMP #### [facility] [address] [place] [address] Dr. Cristiana Bautista Protein [Mass/Vol] 7.4 g/dL Normal 6.4-8.2 [facility] [place] Comment on above: Performed By: #### L IPID, CMP #### [facility] [address] [place] [address] Dr. Cristiana Bautista Sodium [Moles/Vol] 141 mmol/L Normal 136-145 [facility] [place] Comment on above: Performed By: #### L IPID, CMP #### [facility] [address] [place] [address] Dr. Cristiana Bautista Urea nitrogen [Mass/Vol] 8.0 mg/dL Normal 7.0-18.0 [facility] Comment on above: Performed By: #### L IPID, CMP #### [facility] [address] [place] [address] Dr. Cristiana Bautista Urea nitrogen/Creatinine [Mass ratio] 18.2 mg/mg Normal [facility] Comment on above: Performed By: #### L IPID, CMP #### [facility] [address] [address] [address] Cristiana Bautista T4on 04-23-2022 T4 [Mass/Vol] 10.10 ug/dL Normal 4.80-13.90 [facility] Comment on above: Performed By: #### T SH, T4 #### [facility] [address] [place] [address] Dr. Cristiana Bautista TSHon 04-23-2022 TSH Qn m[IU]/L Critically low 0.358-3.740 [facility] Comment on above: Performed By: #### T SH, T4 #### [facility] [address] [place] [address] Dr. Cristiana Bautista COVID/FLU/RSV RT-PCRon 04-19 SARS-CoV-2 (COVID-19) RNA SURAJ+probe Ql (Unsp spec) Negative [facility] [employer] Other COVID/FLU/RSV RT-PCR Negative [facility] [employer] Other COVID/FLU/RSV RT-PCR neggative [facility] [employer] Other T4on 03-12-2022 T4 [Mass/Vol] 15.90 ug/dL Critically high 4.80-13.90 [facility] Comment on above: Performed By: #### T SH, T4 #### [facility] [address] [place] [address] Dr. Cristiana Bautista TSHon 03-12-2022 TSH Qn m[IU]/L Critically low 0.358-3.740 [facility] Comment on above: Performed By: #### T SH, T4 #### [facility] [address] [place] [address] Dr. Cristiana Bautista T4on 02-01-2022 T4 [Mass/Vol] 13.00 ug/dL Normal 4.80-13.90 [facility] Comment on above: Performed By: #### T SH, T4 #### [facility] [address] [place] [address] Dr. Cristiana Bautista TSHon 02-01-2022 TSH 0.001 uIU/mL Critically low 0.358-3.740 [facility] Comment on above: Performed By: #### T , T4 #### [facility] [address] [address] [address] Cristiana Bautista Event Monitoron 01-07-2019 Event [...] BY: Julio Mendenhall MD aek Dictated: 01/07/2019 #[id number] Typed: 01/07/2019 #[id number] cc: Julio Mendenhall MD [facility] Comment on above: Result Comment: Elec tronically Signed By: Za GARCIA, Julio Hill\.br\Date and Time Signed: 01/07/19 16:27 EDT Coding Summary.on 12-19-2018 Coding Summary. CODING DATE: 12/19/2018 [facility] STATUS: Home (Routine DC) PAYOR: Medicaid EA DESCRIPTION 0418 MINOR CARDIAC AND VASCULAR TESTS [...] Pradhan CphT Date Saved: 12/19/2018 07:42 am Normal [facility] Coding Summary.on 12-03-2018 Coding Summary. CODING DATE: 12/03/2018 FINAL [facility] STATUS: Home (Routine DC) PAYOR: [...] CphT Date Saved: 12/03/2018 10:29 am Normal [facility] Echo Transthoracic Completeo n 11-20-2018 Echo Transthoracic Complete Echocardiology Procedure Exam Date/Time Accession # Ordering Echo Transthoracic 11/08/2018 11:47 EDT [id number] Kentrell Perez DO Complete CPT code 12309 Reason for Exam (Echo Transthoracic Complete) MITROVALVE [...] Ordering Dr. Bell Transthoracic 11/08/2018 11:47 EDT [id number] Kentrell Perez DO Complete Report 9. Pulmonic valve: Structurally normal with trivial pulmonic regurgitation. 10. Pericardium: No effusion seen. 11. Aortic root: Normal in size. IMPRESSION : 1. Technically adequate study. 2. Absence of significant valvular heart disease. 3. Ejection fraction 55-60%. FINAL REPORT Signed (Electronic Signature): 11/20/2018 7:58 pm Signed by: Rosibel Quiroz MD Transcribed by: modesta Technologist: ANAMIKA Sin [facility] Coding Summary.on 11-09-2018 Coding Summary. CODING DATE: 11/09/2018 FINAL [facility] STATUS: Home (Routine DC) PAYOR: Medicaid [facility] DESCRIPTION 0081 ECHOCARDIOGRAPHY ADMIT DX: REASON FOR [...] Pradhan CphT Date Saved: 11/09/2018 12:11 pm [facility] Vital Signs Date Time Vital Sign Value Performing Clinician Facility 12-11-2023 15:46-0400 Body weight 57.61 kg Gladis Moody DO Work Phone: [facility] 12-11-2023 15:46-0400 Diastolic blood pressure 70 mm[Hg] Embarr Downso DO Work Phone: [facility] 12-11-2023 15:46-0400 Systolic blood pressure 110 mm[Hg] Gladis Moody DO Work Phone: [facility] 12-03-2022 10:15-0400 Body height 149.86 cm Ellejac Benoit Other [facility] Other 12-03-2022 10:15-0400 Body mass index (BMI) [Ratio] 24.84 kg/m2 Elle Benoit Other [facility] Other 12-03-2022 10:15-0400 Body temperature 99.1 [degF] Elle Benoit Other [facility] Other 12-03-2022 10:15-0400 Body weight 55.79 kg Elle Benoit Other [facility] Other 12-03-2022 10:15-0400 Respiratory rate 16 /min Elle Benoit Other [facility] Other 12-03-2022 10:15-0400 SaO2% (BldA) [Mass fraction] 98 % Elle Benoit Other [facility] Other 04-19-2022 11:00-0500 Body height 149.86 cm Clau Genao Other [facility] Other 04-19-2022 11:00-0500 Body mass index (BMI) [Ratio] 24.23 kg/m2 Clau Genao Other [facility] Other 04-19-2022 11:00-0500 Body temperature 99.8 [degF] Clau Genao Other [facility] Other 04-19-2022 11:00-0500 Body weight 54.43 kg Clau Genao Other [facility] Other 04-19-2022 11:00-0500 Respiratory rate 18 /min Clau Genao Other [facility] Other 04-19-2022 11:00-0500 SaO2% (BldA) [Mass fraction] 96 % Clau Genao Other [facility] Other Encounters Encounter Date Encounter Type Care Provider Facility Start: 01-31-2024 End: 01-31-2024 Phys/qhp telephone evaluation 5-10 min Gladis Moody DO Work Phone: [facility] Comment on above: PCOS (polycystic ova manjeet syndrome) Start: 12-26-2023 End: 12-26-2023 Clinisync Result Encounter Gladis Moody DO Work Phone: [facility] Unsolicited Start: 12-26-2023 End: 12-26-2023 Clinisync Result Encounter Gladis Moody DO Work Phone: [facility] Unsolicited Start: 12-11-2023 End: 12-11-2023 Office outpatient visit 15 minutes Gladis Moody DO Work Phone: [facility] Comment on above: Irregular menstrual cycle; BV (bacterial vaginosis); PCOS (polycystic ovarian syndrome) Start: 12-11-2023 End: 12-11-2023 ambulatory GLADIS MOODY Not Available Start: 12-11-2023 End: 12-11-2023 Bamboo flowsheet Gladis Moody DO Work Phone: [facility] Start: 12-11-2023 End: 12-11-2023 Bamboo flowsheet Gladis Moody DO Work Phone: [facility] Start: 09-14-2023 End: 09-14-2023 ambulatory [facility] Start: 04-07-2023 End: 04-07-2023 ambulatory DELIA [facility] Start: 12-03-2022 End: 12-03-2022 ambulatory Elle Benoit Other [facility] Other Start: 12-03-2022 Office outpatient visit 15 minutes Elle Benoit [facility] Start: 10-04-2022 End: 10-06-2022 ambulatory LUIS A BECKETT [facility] Start: 07-26-2022 End: 07-27-[address] KENTRELL PEREZ Facility:[facility] Start: 06-07-2022 End: 06-08-[address] KENTRELL PEREZ Facility:[facility] Start: 05-31-2022 End: 05-31-2022 ambulatory GLADIS URIOSTEGUI Facility:[facility] Start: 05-09-2022 End: 05-10-2022 ambulatory JASBIR HAM Facility:[facility] Start: 04-25-2022 Encounter for genera l adult medical examination without abnormal findings JASBIR HAM [facility] Start: 04-23-2022 End: 04-24-[address] KENTRELL PEREZ Facility:[facility] Start: 04-23-2022 End: 04-24-2022 Encounter for general adult medical examination without abnormal findings JASBIR HAM Facility:[facility] Start: 04-19-2022 End: 04-19-2022 ambulatory Clau Genao Other [facility] Other Start: 04-19-2022 Office outpatient visit 15 minutes Clau Birgit [facility] Start: 03-12-2022 End: 03-13-[address] KENTRELL PEREZ Facility:[facility] Start: 02-01-2022 End: 02-02-[address] KENTRELL PEREZ Facility:[facility] Start: 07-05-2021 End: 07-10-2021 Pre-admission assessment Addison Johnson [facility] Procedures Date Procedure Procedure Detail Performing Clinician Start: 12-26-2023 H PREG QUANT HCG Core y Moody DO Work Phone: Plan of Treatment Date Care Activity Detail Author Start: 01-31-2024 End: 01-31-2024 Patient encounter procedure 01/31/2024 8:10 AM EDT Office Visit [facility] [address] [place] [address] Gladis Uriostegui DO [address], [place] [id number] [facility] Start: 01-09-2024 End: 01-09-2024 Patient encounter procedure 01/09/2024 3:00 PM EDT Office Visit [facility] [address] [place] [address] Myrtle Laboy PA [address] [place], [place] [id number] [facility] Start: 12-27-2023 End: 12-27-2023 Professional / ancillary services management 12/27/2023 1:00 PM EDT Ancillary Procedure [facility] [address] [place] [id number] [facility] Start: 12-17-2023 Influenza vaccination Influenza Vacc ine (#1) [facility] Start: 12-11-2023 End: 12-11-2023 Patient encounter procedure 12/11/2023 3:20 PM EDT Office Visit [facility] [address] [place] [id number] Gladis Uriostegui DO [address] [address] Arrived [facility] Comment on above: Arrived Start: 12-11-2023 End: 12-10-2024 DHEA DHEA Lab Routine Irregular menstrual cycle PCOS (polycystic ovarian syndrome) Expected: 12/11/2023 (Approximate), Expires: 12/10/2024 [facility] Comment on above: Expected: 12/11/2023 (Approximate), Expires: 12/10/2024 Start: 12-11-2023 End: 12-10-2024 US for US PELVIS-TRANSVAG IF INDICATED Imaging Routine Irregular menstrual cycle PCOS (polycystic ovarian syndrome) Expected: 12/11/2023 (Approximate), Expires: 12/10/2024 [facility] Comment on above: Expected: 12/11/2023 (Approximate), Expires: 12/10/2024 CBC W Auto Different ial panel - Blood CBC and differential Lab Routine Irregular menstrual cycle PCOS (polycystic ovarian syndrome) Ordered: 12/11/2023 [facility] Comment on above: Ordered: 12/11/2023 DHEA-sulfate DHEA-sulfate Lab Routine Irregular menstrual cycle PCOS (polycystic ovarian syndrome) Ordered: 12/11/2023 [facility] Comment on above: Ordered: 12/11/2023 Follicle stimulating hormone Follicle stimulating hormone Lab Routine Irregular menstrual cycle PCOS (polycystic ovarian syndrome) Ordered: 12/11/2023 [facility] Comment on above: Ordered: 12/11/2023 hCG, quantitative, hCG, quantitative, Lab Routine Irregular menstrual cycle PCOS (polycystic ovarian syndrome) Ordered: 12/11/2023 [facility] Work Phone: Comment on above: Ordered: 12/11/2023 Hemoglobin A1c/Hemoglobin.total in Blood Hemoglobin A1c Lab Routine Irregular menstrual cycle PCOS (polycystic ovarian syndrome) Ordered: 12/11/2023 [facility] Comment on above: Ordered: 12/11/2023 Luteinizing hormone Luteinizing hormone Lab Routine Irregular menstrual cycle PCOS (polycystic ovarian syndrome) Ordered: 12/11/2023 [facility] Comment on above: Ordered: 12/11/2023 Thyrotropin [Units/volume] in Serum or Plasma TSH Lab Routine Irregular menstrual cycle PCOS (polycystic ovarian syndrome) Ordered: 12/11/2023 [facility] Comment on above: Ordered: 12/11/2023 Thyroxine (T4) free [Mass/volume] in Serum or Plasma T4, free Lab Routine Irregular menstrual cycle PCOS (polycystic ovarian syndrome) Ordered: 12/11/2023 [facility] Comment on above: Ordered: 12/11/2023 Immunizations Immunization Date Immunization Notes Care Provider Alvin griffith 10-14-2013 influenza virus vacc ine, unspecified formulation Gladis Uriostegui DO Work Phone: [facility] Payers Date Payer Category Payer Private Health Insurance [employer] [id number] 2022 Unknown [employer] [facility] CONT[employer] [id number] 2022-Present [phone] [address] [place] [address] [id number] 2022 Blue Cross Blue [facility] [id number] 1997 Unknown [id number]. 593 1997 Unknown [id number] [id number]. 593 1997 Unknown [id number] [id number]. 593 1997 Unknown [id number] [id number]. 593 1997 Unknown [id number] [id number]. 593 1997 Unknown [id number] [id number]. 593 1997 Unknown [id number] [id number]. 593 1997 Unknown [id number] [id number]. 593 1997 Unknown [id number] [id number]. 1259 1957 [facility] [id number] 1957 Medicaid [id number] Social History Date Type Detail Facility Start: 11-30-2018 Tobacco smoking status Never smoked tobacco (finding) [facility] Sex Assigned At Female [facility] Tobacco smoking status NCIS Tobacco smoking consumption unknown [facility] Start: 1997 Sex assigned at Not on file [facility] Start: 06-04-2023 Gender identity Identifies as female gender (finding) [facility] Clinical Notes 04-19-2022 to 01-31-2024 Mari Vogel LPN - 01/31/2024 8:10 AM EDTSronnell Pretty LPN - 12/11/2023 3:20 PM EDT Note Date & Type Note Facility 01-31-2024 History of Present illness Narrative Reason for Appointment: Patient ID: Estephanie Kothari is a 28 y.o. female who presents for Telehealth Patient presents today via telephone call for a telehealth appointment. Patients Phone #: [phone] (mobile) Current Medications: has a current medication list which includes the following prescription(s): albuterol hfa, methimazole, metoprolol succinate xl, propylthiouracil, and solosec. Medical History: Active Ambulatory Problems Diagnosis Date Noted No Active Ambulatory Problems Resolved Ambulatory Problems Diagnosis Date Noted No Resolved Ambulatory Problems No Additional Past Medical History No family history on file. Social History Tobacco Use Smoking status: Not on file Smokeless tobacco: Not on file Substance Use Topics Alcohol use: Not on file Drug use: Not on file No past surgical history on file. Allergies Allergen Reactions Metronidazole Other Reaction(s): vomiting Fluconazole GI intolerance Vitals: There is no height or weight on file to calculate BMI. BP: No LMP recorded. Assessment/Plan Encounter Diagnosis Name Primary? PCOS (polycystic ovarian syndrome) Pt was called to discuss PCOS and labs and ultrasound results. Pt has irregular periods, discussed changing diet. Advised Mediterranean diet. Pt started working out. Pt does not desire medication at this point. Today's telehealth visit consisted of spending 10 minutes talking to patient on the phone. Documented by Mari Vogel LPN on behalf of: Gladis Uriostegui DO documented in this encounter [facility] 12-11-2023 History of Present illness Narrative Reason for Appointment: Patient ID: Estephanie Kothari is a 28 y.o. female who presents for Menstrual Problem (Pt present today to discuss irregular cycles and BV issues. ) Patient presents today for Consult appointment. MEDICATIONS Current Outpatient Medications Medication Instructions albuterol HFA 90 mcg/act inhaler 2 puffs, Inhalation, Every 6 hours PRN methIMAzole (Tapazole) 5 MG tablet Take 0.5 tablets every day by oral route for 28 days. metoprolol succinate XL (Toprol-XL) 25 MG 24 hr tablet 1 tablet, Oral, Daily propylthiouracil (PTU) 50 MG tablet Secnidazole (Solosec) 2 g pack as directed Orally for 1 days ALLERGIES Allergies Allergen Reactions Metronidazole Other Reaction(s): vomiting Fluconazole GI intolerance PROBLEMS Active Ambulatory Problems Diagnosis Date Noted No Active Ambulatory Problems Resolved Ambulatory Problems Diagnosis Date Noted No Resolved Ambulatory Problems No Additional Past Medical History HISTORY PAST MEDICAL HISTORY SOCIAL HISTORY No past medical history on file. Social History Tobacco Use Smoking status: Not on file Smokeless tobacco: Not on file Substance Use Topics Alcohol use: Not on file Drug use: Not on file FAMILY HISTORY No family history on file. SURGICAL HISTORY History reviewed. No pertinent surgical history. REVIEW OF SYSTEMS Review of Systems: Review of Systems All other systems reviewed and are negative. OBJECTIVE Objective: OBGyn Exam Vitals: There is no height or weight on file to calculate BMI. BP: 110/70 Patient's last menstrual period was 12/10/2023 (approximate). ASSESSMENT & PLAN ICD-10-CM 1. Irregular menstrual cycle N92.6 hCG, quantitative, TSH T4, free CBC and differential Follicle stimulating hormone Luteinizing hormone Hemoglobin A1c DHEA-sulfate DHEA US PELVIS-TRANSVAG IF INDICATED DHEA 2. BV (bacterial vaginosis) N76.0 B96.89 3. PCOS (polycystic ovarian syndrome) E28.2 hCG, quantitative, TSH T4, free CBC and differential Follicle stimulating hormone Luteinizing hormone Hemoglobin A1c DHEA-sulfate DHEA US PELVIS-TRANSVAG IF INDICATED DHEA Patient presents today for irregular cycles and BV issues appointment. Patient to have labs drawn along with ultrasound and will follow up in 6 weeks for telehealth appointment. Patient will reach out to office if she has any concerns/questions. Documented by Pamela Pretty LPN on behalf of: Gladis Uriostegui DO documented in this encounter [facility] 09-14-2023 Note [facility] Subjective Estephanie Kothari is a 28 y.o. year old female patient being seen for 6 months FU Patient Active Problem List Diagnosis Paroxysmal SVT (supraventricular tachycardia) (CMS/[facility]) H/O sinus tachycardia Thyroid condition [...] bpm, otherwise normal EKG Echo: 04/28/2023 in [facility] 30-day event Monitor: 08/09/2022 to 09/07/2022 [...] Beckett in 1 year. Ekaterina Decker MD, [facility] 09-14-2023 Note Patient here for 6 m [...] All other systems reviewed and are negative. [facility] 04-07-2023 Note [facility] Consult Note Reason [...] felt close. 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 Says she will be having thyroid function checked soon. C/o palpitations and SOB w/wo exertion. Denies chest pain and lightheadedness. Review of Systems Cardiovascular: Positive for dyspnea on exertion, irregular heartbeat and palpitations. Respiratory: Positive for shortness of breath. All other systems reviewed and are negative. [facility] 12-03-2022 Evaluation note Encounter Date Diagnosis Assessment [...] no improvement in 2 to 3 days [facility] Other 06-20-2023 NoteUT Electrophysiology Consult Note Date of Telehealth Visit: 10/04/22 The patient was notified that using 3rd democrat telecommunication application (e.g., [employer]avin) is not HIPPA compliant and may carry some privacy risks. Yes The visit was conducted [id number] with the use of audio and video [...] felt close. 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 Tjose with 130-140 likely sinus tachy but one at 170-180bpm maybe SVT. Discussed findings with patient. She has felt better sin (more content not included)...[facility]01-[facility]2023 Evaluation note* Encounter Date Diagnosis Assessment Notes [...] go away, Acute bronchitis material was printed [employer] Other Evaluation + Plan note No data available for this section [facility] PCOS (polycystic ovarian syndrome) Polycystic ovaries [facility] Diagnosis Irregular menstrual cycle BV (bacterial vaginosis) Unspecified vaginitis and vulvovaginitis PCOS (polycystic ovarian syndrome) Polycystic ovaries [facility] N[facility]ative - Reported* Type Description Date Medical History mitral valve prolapse Medical History svt's Medical History Graves disease [facility] Other Hospital Discharge instructions No data available for this section [facility] Summary Purpose Family History No Family History Records FoundNo Family History Records FoundNo Family History Records FoundNo Family History Records Found Advance Directives No Advanced Directives Records FoundNo Advanced Directives Records FoundNo Advanced Directives Records FoundNo Advanced Directives Records Found Additional Source Comments INFORMATION SOURCE (unrecogn ized section and content) DATE CREATED AUTHOR 01/17/2019 [facility] DATE CREATED AUTHOR AUTHOR'S ORGANIZ ATION [facility]/2022 [facility] DATE CREATED AUTHOR AUTHOR'S ORGANIZ ATION 09/15/2023 [facility] DATE CREATED AUTHOR AUTHOR'S ORGANIZ ATION 12/13/2023 [facility] EPIC REASON FOR VISIT (unrecogniz ed section and content) Reason Comments Telehealth Reason Comments Menstrual Problem Pt present today to discuss irregular cycles and BV issues. FOR RECORDS PERTAINING TO PATIENTS WHO ARE [...] BE BASED ON THE PRIMARY CLINICAL RECORDS. [employer] [facility]. provides no warranty or guarantee of the accuracy or completeness of information in this document.
--- NOTE | 2024-09-13 07:49 | ED_ITS ---
HPI HPI - General Adult General Chief complaint: Chest Pain Stated complaint: CHEST PAINS Time Seen by Provider: 09/13/24 07:37 Source: patient Mode of arrival: walk-in Limitations: no limitations History of Present Illness HPI narrative: Patient is a 29-year-old female who is presenting to the ER with chief complaint of heart racing intermittently yesterday and today. Patient has a history of tachycardia, SVT. Patient was due to have a appointment today with [facility] today, but this was rescheduled. Patient does have a history of SVT. Patient has a watch that records her heart rate. Patient states she was driving home yesterday and her heart rate was in the 160s. Patient currently heart rate is normal. Patient states that she has home last evening, took a shower to help feel better. Patient was able to go to bed at 10:30 PM and she slept with no difficulty last night. Patient felt her heart intermittently racing this morning, so she came into the ER for evaluation. 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 No significant stress or anxiety recently. Patient does have thyroid history, however she has been off thyroid medication for the past 2 years because her test had normalized. Patient currently has no chest pain, shortness of breath, nausea, vomiting, or any other acute complaints. No abdominal pain nausea vomiting. All systems are negative except as noted/marked. All systems reviewed and otherwise negative. Nurses note and vital signs reviewed and patient is not hypoxic. General: The patient appears well and in no apparent distress. Patient is resting comfortably on cart. Patient is not toxic, lethargic, or listless Skin: Warm, dry, no pallor noted. There is no rash noted. No petechiae, purpura. Head: Normocephalic, atraumatic Eye: Normal conjunctiva, no drainage, EOMI. PERRL Ears, Nose, Mouth, and Throat: oral mucosa is moist. Nares patent. Mouth without vesicles. Cardiovascular: Regular Rate and Rhythm, no murmur, gallop, rub. No reproducible tenderness to palpation. Respiratory: Patient is in no distress, no accessory muscle use, lungs are clear to auscultation, no wheezing, rales or rhonchi Back: non-tender, no CVA tenderness bilaterally to percussion. No CT LS midline pain GI: Soft, no tenderness to palpation, no masses appreciated. No rebound, guarding, or rigidity noted. No distention Musculoskeletal: Patient has full range of motion of all of the extremities, no motor, sensory, or focal neurological deficits Neurological: A&O x4, normal speech Psychiatric: Cooperative Related Data Home Medications ?Medication ?Instructions ?Recorded ?Confirmed No Known Home Medications 09/13/2408/17 Allergies Allergy/AdvReac Type Severity Reaction Status Date / Time codeine Allergy Intermediate Hives Verified 09/13/24 07:04 Opioid HPI Opioid Management Most Recent Opioid Data: Last Pain Scale 5 Today, 06:57 PFSH PFSH Social History Little interest or pleasure in doing things: not at all Feeling down, depressed, or hopeless: not at all Exam Constitutional Vital Signs, click to edit/add: Last Vital Signs Temp 98.6 F 09/13/24 06:57 Pulse 92 H 09/13/24 06:57 Resp 20 09/13/24 06:57 BP 131/78 09/13/24 06:57 Pulse Ox 100 09/13/24 06:57 Course Vital Signs Vital signs: Vital Signs Temperature 98.6 F 09/13/24 06:57 Pulse Rate 92 H 09/13/24 06:57 Respiratory Rate 20 09/13/24 06:57 Blood Pressure 131/78 09/13/24 06:57 Pulse Oximetry 100 09/13/24 06:57 Temperature 98.6 F 09/13/24 06:57 Pulse Rate 92 H 09/13/24 06:57 Respiratory Rate 20 09/13/24 06:57 Blood Pressure 131/78 09/13/24 06:57 Pulse Oximetry 100 09/13/24 06:57 Medical Decision Making [facility] Narrative Medical decision making narrative: Patient seen and examined: Patient had cardiac evaluation Differential diagnosis includes but is not limited to: ACS, STEMI, electrolyte abnormality, dehydration, anxiety, SVT, arrhythmia Diagnostics and management: Patient will have laboratory studies Relevant laboratory interpretation: No acute lab abnormalities Radiological studies: Please see the formal radiological report. Chest x-ray shows no acute cardiopulmonary disease, no infiltrate, no effusion. Reevaluation: Patient has not had palpitations or episodes of heart rate in the 160s to 140s in the ER today. Shared decision making: I discussed with the patient the necessary laboratory findings and radiological findings. Social barriers to healthcare: There are no food insecurities, there is no issue with transportation, there are no insurance barriers. Disposition: I discussed with the patient lab findings. Patient did have a appointment today with [facility] cardiology, that was rescheduled. Patient does have a PCP. Since patient has a history of thyroid, she has not been on medication for the last 2 years, but TSH and T4 were added at discharge. Patient was thankful for this, she will follow-up with the results on MyChart and also her PCP will follow-up on the results of this as well since it is not really correlating with today's ER visit. Patient will continue increase fluids. She has had no nausea vomiting. Patient feels safe to go home. No question at discharge Lab Data Lab results reviewed: Yes I reviewed the patient's lab results Labs: Lab Results 09/13/24 Range/Units 07:05 WBC 9.0 (4.0-11.0) 10^3/uL RBC 4.51 (4.20-5.40) 10^6/uL Hgb 12.9 (12.0-16.0) g/dL Hct 37.4 (36.0-48.0) % MCV 82.9 (81.0-99.0) fL MCH 28.6 (26.7-34.0) pg MCHC 34.5 (29.9-35.2) g/dL RDW 12.9 (11.0-15.0) % Plt Count 407 (150-450) 10^3/uL MPV 9.8 (9.5-13.5) fL Neut % (Auto) 48.9 (43.0-75.0) % Lymph % (Auto) 41.9 (20.5-60.0) % [place] % (Auto) 6.4 (1.7-12.0) % Eos % (Auto) 2.3 (0.9-7.0) % Baso % (Auto) 0.3 (0.2-2.0) % Neut # (Auto) 4.4 (1.4-6.5) 10^3/uL Lymph # (Auto) 3.8 (1.2-3.8) 10^3/uL [place] # (Auto) 0.6 (0.3-0.8) 10^3/uL Eos # (Auto) 0.2 (0.0-0.7) 10^3/uL Baso # (Auto) 0.0 (0.0-0.1) 10^3/uL Abs Immat Gran (auto) 0.02 (0.00-0.03) 10^3/uL Imm/Tot Granulo (auto) 0.2 (0.0-0.5) % Sodium 141 (136-145) mmol/L Potassium 3.7 (3.5-5.1) mmol/L Chloride 103 (98-107) mmol/L Carbon Dioxide 25.5 (21.0-32.0) mmol/L Anion Gap 16.2 BUN 10.0 (7.0-18.0) mg/dL Creatinine 0.67 (0.55-1.02) mg/dL Est GFR ( Amer) >60 (>=60 mL/min/1.73m^2) Est GFR (Non-Af Amer) >60 (>=60 mL/min/1.73m^2) BUN/Creatinine Ratio 14.9 Glucose 101 (74-106) mg/dL Calcium 9.0 (8.5-10.1) mg/dL Total Bilirubin 0.7 (0.2-1.0) mg/dL AST 18 (15-37) U/L ALT 19 (14-59) U/L Alkaline Phosphatase 66 (46-116) U/L Troponin I High Sens <5.0 (4.0-51.3) pg/mL Total Protein 7.8 (6.4-8.2) g/dL Albumin 3.9 (3.4-5.0) g/dL Globulin 3.9 g/dL Albumin/Globulin Ratio 1.0 ECG Data Attestation: I personally reviewed and interpreted this ECG as follows: (EKG interpretation. Normal sinus rhythm at 86 beats a minute. Normal axis deviation. No acute ST elevation, no acute ectopy. QTc of 394) Discharge Plan Discharge Chief Complaint: Chest Pain Clinical Impression: Palpitations Patient Disposition: Home, Self-Care Time of Disposition Decision: 08:07 Condition: Fair Prescriptions / Home Meds: No Action No Known Home Medications Print Language: Swedish Instructions: Heart Palpitations (ED) Additional Instructions: Follow-up with your [facility] cardiology at your rescheduled appointment. Increase fluids Referrals: Divya Damon NP [Primary Care Provider] - 1 week Discharge Date/Time: 09/13/24 08:15
[2024-09-13 07:57] LABS: Troponin I High Sensitivity <5.0 pg/mL (4.0-51.3)
[2024-09-13 09:04] LABS: TSH W/ REFLEX FT4 3.723 uIU/mL (0.358-3.740)
== END 2024-09-13 08:15 | disposition home or self-care (01) ==
PROVIDERS: Emergency Provider Emergency Medicine; PCP Nurse Practitioner
DX: R00.2 Palpitations (principal); I47.10 Supraventricular tachycardia, unspecified
CPT/HCPCS: 36415; 71046; 80053; 84443; 84484; 85025; 93005; 99285

== ENCOUNTER 2024-09-27 13:34 | Outpatient (OUT) | payer BC, SELFPAY ==
--- OUTSIDE RECORDS SUMMARY | 2024-02-23 06:00 | XMS_ITS ---
Author Organization [facility] vices Address [address] [facility] [place] [id number] Care Team Providers Care Pediatric Acute Care Unit Nurse Name Role Phone Divya Damon Primary Care Provider [phone] Judith Williamson Unavailable [phone] REASON FOR VISIT Sleeping Issues Social History Sex Assigned At : Social History Observation Description Sex Assigned At Female Encounters Encounter Location Date Provider Diagnosis Main [address] [place] [id number] 02/23/2024 Judith Duranl Plan Of Treatment No Information Progress Notes * Estephanie KOTHARI NDOB: [birth year] (29 yo F)Acc No.[id number]:02/23/2024 Medical Note Patient: Estephanie JOSEPH Provider: Hussein Williamson MD :1995 A ge:28 Y S ex:Female Date:02/23/2024 Address:[address] [place], [place] [id number] Pcp:Divya Damon Subjective: * Chief Complaints: * 1 . Sleeping Issues. * Medical History: Objective: * Vitals: Assessment: Plan: * Treatment: * Billing Information: * Visit Code: * Procedure Codes: * Electronic signature of Catalina Williamson MD on 09/27/2024 at 01:36 PM EDT Sign off status: Pending * Provider: Hussein Williamson MD Date: 1 04/24/2023 Generated for Printi ng/Faxing/eTransmitting on: 0 09/27/2024 01:36 PM EDT
--- OUTSIDE RECORDS SUMMARY | 2024-09-23 07:07 | XMS_ITS ---
Author Organization [facility] vices Address [address] [place], [place] [id number] Care Team Providers Care Woods Boss Name Role Phone Divya Damon Primary Care Provider REASON FOR VISIT Lab Orders Social History Sex Assigned At : Social History Observation Description Sex Assigned At Female Encounters Encounter Location Date Provider Diagnosis Main [address] [place], [place] [id number] 09/23/2024 Divya Damon Hyperthyroidism E05. 90 Assessments Encounter Date Diagnosis (ICD Code) Assessment Notes Treatment Notes Treatment Clinical Notes Section Notes 09/23/2024 Hyperthyroidism (ICD-10 - E05.90) Plan Of Treatment Pending Test Test Name Order Date TSH W/ REFLEX FT4 09/23/2024 Progress Notes * Estephanie KOTHARI NDOB: [birth year] (29 yo F)Acc No.[id number]:09/23/2024 Patient: Estephanie JOSEPH Sherri :1995 A ge:29 Y S ex:Female Address:[address] [place] [id number] Subjective: * Chief Complaints: * L ab Orders * Medical History: * Surgical History: * Hospitalization/Major Diagno stic Procedure: * Medications: Objective: * Vitals: * Physical Examination: Assessment: * Assessment: 1. H yperthyroidism - E05.90 (Primary) Plan: * Treatment: * Procedure Codes: * true * Date: Generated for Printi ng/Faxing/eTransmitting on: 0 09/27/2024 01:36 PM EDT
--- OUTSIDE RECORDS SUMMARY | 2024-09-27 13:36 | XMS_ITS | Encounter Summary ---
Author Organization [facility] Address [address] [address] Care Team Providers Care Regulatory Coordinator Name Role Phone Divya Damon MD Primary Care Provider [phone] Reason for Visit * Reason Onset Date Comments Med Refill 09/13/2024 Encounter Details Date Type Department Care Team (Late st Contact Info) Description 09/13/2024 Refill [facility] at [facility] [address] [place] [address] Lisa Sahu MA Social History Tobacco Use Types Packs/Day Years Used Date Smoking Tobacco: Never Passive Smoke Exposure: Past Smokeless Tobacco: Never Alcohol Use Standard Drinks/Week Comments Yes 0 (1 standard drink = 0.6 oz pur e alcohol) 1-2 drinks monthly [place] Safety & Environment Answer Date Rec orded Fear of Current or Ex-Partner Not on file Emotionally Abused Not on file 06/08/2023 Physically Abused Not on file 06/08/2023 Sexually Abused Not on file 06/08/2023 Physically or Sexually Abused Not on file Comments No Sex and Gender Information Value Date Recorded Sex Assigned at Not on file Legal Sex Female 10:07 PM EDT Gender Identity Not on file Sexual Orientation Not on file documented as of this encounter Plan of Treatment Not on file documented as of this encounter Visit Diagnoses Not on filedocumented in this encounter Care Teams Regulatory Coordinator Relationship Specialty Start Date End Date Divya Damon MD [address] [place] [phone] PCP - General Nurse Practitioner 09/14/23 documented as of this encounter
--- OUTSIDE RECORDS SUMMARY | 2024-09-27 13:36 | XMS_ITS | Encounter Summary ---
Author Organization [facility] Address [address] [place] [place] [address] Care Team Providers Care Supervisor Concrete Stone Fabricating Name Role Phone Unavailable Primary Care Provider Unavailabl e Encounter Details Date Type Department Care Team (Late st Contact Info) Description 12/05/2023 Orders Only [facility] OB [address] [place] [phone] Yvonne Dc LPN [address] [place] [address] Social History Tobacco Use Types Packs/Day Years [...]
--- OUTSIDE RECORDS SUMMARY | 2024-09-27 13:37 | XMS_ITS | Clinical Summary ---
Author Organization [facility] Address [address] [place] [address] Care Team Providers Care Kiln Firer Name Role Phone Unavailable Primary Care Provider [...] 2024 10/15/19 14 Insurance [employer] Member Subscriber Plan / Payer (Ef fective 2022-Present) Name:Estephanie Kothari Member ID:[id number] Relation to Subscriber:Self Name:Estephanie Kothari Subscriber ID:[id number] Payer ID:Not on file Group ID:Not on file Type:Not on file Address: [facility] [address] [place] [address]
--- OUTSIDE RECORDS SUMMARY | 2024-09-27 13:37 | XMS_ITS | Clinical Summary ---
Author Organization [facility] Address [id number] [address] [place] [address] Care Team Providers Care Wire Mill Rover Name Role Phone Kentrell Bobo DO Primary Care Provider [phone] Allergies Active Allergy Reactions Criticality Noted Date [...] Date Last Done Comments Depression Screening 2009 Tobacco Screening 2009 Pap Smear 2018 DTaP,Tdap and Td Vaccines (7 - Td or Tdap) 11/23/2020 11/23/2010, 04/23/2003, 01/13/1999, Additional history exists Adult BMI Screening 08/12/2023 08/11/2022 COVID-19 Vaccine (3 - 2023-2 5 season) 2023 01/29/2021, 01/08/2021 Influenza Vaccine 12/16/2024 10/14/2013 Medical Devices Not on file [place] [address] [place] [address] [employer] MED[employer] Care Teams Wire Mill Rover Relationship Specialty Start Date End Date Kentrell Bobo DO PCP - General Family Medicine 04/21/22
--- OUTSIDE RECORDS SUMMARY | 2024-09-27 13:37 | XMS_ITS | Encounter Summary ---
Author Organization [facility] Address [address] [place] [address] Care Team Providers Care Ceramic Maker Demonstrator Name Role Phone Unavailable Primary Care Provider Unavailabl e Encounter Details Date Type Department Care Team ([facility] st Contact Info) Description 12/28/2023 Clinisync Result Encounter [facility] External Department Unsolicited Gladis Uriostegui, DO [address] [facility] [place] [address] Social History Tobacco Use Types Packs/Day Years [...] EDT Narrative 12/28/2023 8:28 AM EDT The [address] [address] Ultrasound Report Signed Patient: ESTEPHANIE KOTHARI MR#: [id number] : 1995 Acct:[id number] Age/Sex: 28 / F ADM Date: 12/27/23 Loc: [facility] Attending Dr: Gladis Uriostegui D.O. Ordering Physician: Gladis Uriostegui D.O. Date of Service: 12/27/23 Procedure(s): US pelvis w/ transvaginal Accession Number(s): [id number] cc: Gladis Uriostegui D.O.; Divya Damon NP The [place] [id number] Patient Name: ESTEPHANIE KOTHARI MRN: [id number] date: 1995 Sex: F Assigned Patient Location: [facility] Current Patient Location: Accession/Order Number: [id number] Exam Date: 12/27/2023 12:57 Report Date: 12/28/2023 [...] No acute abnormality Electronically authenticated by: KAMILLE WHIET Date: 12/28/2023 08:25 Dictated By: Kamille White M.D. Signed By: 12/28/23827 DD/ 4 TD/TT: Dress Finisher: Procedure Note Radiology, Radiologist, - 12/28/2023 [place] [address] Ultrasound Report Signed Patient: ESTEPHANIE KOTHARI NMR#: [id number] : 1995Acct:[id number] Age/Sex: 28 / FADM Date: 12/27/23 Loc: [facility] Attending Dr: Gladis Uriostegui D.O. Ordering Physician: Gladis Uriostegui D.O. Date of Service: 12/27/23 Procedure(s): US pelvis w/ transvaginal Accession Number(s): [id number] cc: Gladis Uriostegui D.O.; Divya Damon NP [place] [id number] Patient Name: ESTEPHANIE KOTHARI MRN: [id number] date: 1995 Sex: F Assigned Patient Location: [facility] Current Patient Location: Accession/Order Number: [id number] Exam Date: 12/27/2023 12:57 Report Date: 12/28/2023 [...] White M.D. Signed By:12/28/23827 DD/ 4 TD/TT: Dress Finisher: Gladis Uriostegui DO [facility] Final Result documented in this encounter Visit Diagnoses Not on filedocumented in this encounter
--- OUTSIDE RECORDS SUMMARY | 2024-09-27 13:37 | XMS_ITS | Patient Health Record ---
Author Organization [facility] Address [address] [place] [address] Support Name Relationship Address Phone ARISTEO ROLAND Guarantor Unknown [phone] Reason For Referral No Information Problems Problem Type SNOMED Code ICD Code Onset Dates Problem Status W/U Status Risk Notes Problem [id number] History of posttraumatic stress disorder (PTSD) (Z86.59) Active confirmed Problem [id number] LUCERO (generalized anxiety disorder) (F41.1) Active confirmed Plan Of Treatment No Information Insurance Providers Payer Name Payer Address Payer Phone Subscriber Number Group Number Insured Name Patient Relationship to Insured Coverage Start Date Coverage End Date [facility] [address] [address] [place] [address] [id number] ARISTEO ROLAND Self - patient is the insured 1 [facility] MEDICAID [facility] after [facility] [address] [place] [address] [id number] ARISTEO ROLAND Self - patient is the insured 1
--- OUTSIDE RECORDS SUMMARY | 2024-09-27 13:37 | XMS_ITS | Referral Summary ---
Author Organization [facility] Address [address] [place] [address] Care Team Providers Care Imaging Account Manager Name Role Phone Divya Damon MD Primary Care Provider [phone] Encounters Date Type Department Care Team Description 09/27/2024 1:00 PM EDT Office Visit [facility] [address] [place] [address] Julius Cason CNP Palpitations (Primary Dx); Sinus tachycardia; Paroxysmal SVT (supraventricular tachycardia); Thyroid condition 09/13/2024 Refill [facility] [address] [place] [address] Lisa Sahu MA from Last 3 Months Allergies Active Allergy Reactions Criticality Noted Date Comments Fluconazole GI intolerance Low 08/09/2022 Metronidazole Unknown 05/29/2023 Other Reaction(s): vomiting Medications mv-min/iron/folic /calcium/vitK (WOMEN'S MULTIVITAMIN ORAL) Take 1 tablet by mouth in the morning. Active Active Problems Problem Noted Date Diagnosed Date LUCERO (generalized anxiety disorder) 09/27/2024 History of posttraumatic stress disorder (PTSD) 09/27/2024 Palpitations 09/14/2023 Sinus tachycardia 09/14/2023 Paroxysmal SVT [...] Sign Reading Time Taken Comments Blood Pressure 102/72 09/27/2024 1:00 PM EDT Pulse 71 09/27/2024 1:00 PM EDT Temperature - - Respiratory Rate - - Oxygen Saturation 97% 09/27/2024 1:00 PM EDT Inhaled Oxygen Concentration - - Weight 57.6 kg (127 lb) 09/27/2024 1:00 PM EDT Height 147.3 cm (4' 10 ) 09/27/2024 1:00 PM EDT Body Mass Index 26.54 09/27/2024 1:00 PM EDT Plan of Treatment Not on file Insurance [facility] Care Teams Imaging Account Manager Relationship Specialty Start Date End Date Divya Damon MD [address] [place] [phone] PCP - General Nurse Practitioner 09/14/23
--- OUTSIDE RECORDS SUMMARY | 2024-09-27 13:50 | XMS_ITS | CCD ---
Author Organization [facility] Care Team Providers Care Member Of Technical Staff Name Role Phone Kentrell Perez Primary Care Physician Clau Genao Unavailable HOUSE, DR SWAIN Admitting Unavailable HOUSE, DR SWAIN Attending Unavailable HOUSE, DR SWAIN Primary Care Unavailable HOUSE, DR SWAIN Consulting Unavailable HERSCHER, DR SWAIN Admitting Unavailable HOUSE, DR SWAIN Attending Unavailable HOUSE, DR SWAIN Primary Care Unavailable HOUSE, DR SWAIN Consulting Unavailable HERSCHER, DR SWAIN Admitting Unavailable HOUSE, DR SWAIN [...] Primary Care Unavailable MOODY, GLADIS Consulting Unavailable HOUSE, DR SWAIN Admitting Unavailable HOUSE, DR SWAIN Attending Unavailable HOUSE, DR SWAIN Primary Care Unavailable HOUSE, DR SWAIN Consulting Unavailable HERSCHER, DR SWAIN Admitting Unavailable HOUSE, DR SWAIN [...] source) Fluconazole; Translations: [FLUCONAZOLE] Drug Allergy 3 [facility] Repository (6 sources) Fluconazole Propensity to adverse reactions 3 GI intolerance [facility] Work Phone: (6 sources) metroNIDAZOLE Drug Allergy 4 [facility] Medications Current Medications Medication Drug Class(es) Dates Sig (Normalized) Sig (Original) [id number] 200 actuat albuterol 0.09 mg/actuat metered dose [...] WEEKS 15,000-200,000 6-8 WEEKS 10,000-100,000 2-3 MONTHS [facility] Visiton 09-14-2023 Follow-up visit [id number] Harpreet Kotharisey N 1995 F Date Provider Department Center 09/14/2023 [id number], SILVANAEVAN CARD [facility] No family history on file Level of Service:20135 OR OFFICE/OUTPATIENT ESTABLISHED LOW MDM 20 MIN Normal [facility] Office Visiton 04-07-2023 Follow-up visit [id number] Estephanie Kothari N 1995 F Date Provider Department Center 04/07/2023 DELIA VIZCAINO CARD [facility] No family history on file Level of Service:84914 OR OFFICE/OUTPATIENT ESTABLISHED LOW MDM 20 MIN Normal [facility] Telemedicineon 10-04-2022 Telemedicine [id number] Estephanie Kothari 1995 Date Provider Department Center 10/04/2022 HectorLUIS A MCCARTY ZAIRE [facility] No family history on file Level of Service:57147 OR PHYS/QHP TELEPHONE EVALUATION 21-30 MIN [facility] T4on 07-26-2022 T4 [Mass/Vol] 8.60 ug/dL Normal 4.80-13.90 [facility] Comment on above: Performed By: #### T SH, T4 #### [facility] [address] [place] [address] Dr. Cristiana Bautista TSHon 07-26-2022 TSH 2.139 uIU/mL Normal 0.358-3.740 [facility] Comment on above: Performed By: #### T SH, T4 #### [facility] [address] [place] [address] Dr. Cristiana Bautista PAP ACOG PANEL 2: 21 to 29on 06-08-2022 . . Normal [facility] Comment on above: Performed By: #### T SH, T4 #### [facility] [address] [place] [address] Dr. Cristiana Bautista Age Gdln ACOG Testing 21-29 Normal [facility] Comment on above: Performed By: #### T SH, T4 #### [facility] [address] [place] [address] Dr. Cristiana Bautista DIAGNOSIS: Comment Normal [facility] Comment on above: Result Comment: NEGA TIVE FOR INTRAEPITHELIAL LESION OR MALIGNANCY. Performed By: #### T SH, T4 #### [facility] [address] [place] [address] Dr. Cristiana Bautista Methodology: Comment Normal [facility] Comment on above: Result Comment: This liquid based ThinPrep(R) pap test was screened with the use of an image guided system. Performed By: #### T SH, T4 #### [facility] [address] [place] [address] Dr. Cristiana Bautista Note: Comment [facility] Comment on above: Result Comment: The Pap smear is a screening test designed to aid in the detection of premalignant and malignant conditions of the uterine cervix. It is not a diagnostic procedure and should not be used as the sole means of detecting cervical cancer. Both false-positive and false-negative reports do occur. . Performed By: #### T SH, T4 #### [facility] [address] [place] [address] Dr. Cristiana Bautista Performed by: Comment Normal [facility] Comment on above: Result Comment: Claudine Garcia, Marketing Intern (ASCP) Performed By: #### T SH, T4 #### [facility] [address] [place] [address] Dr. Cristiana Bautista Reflex Criteria: Comment Normal [facility] Comment on above: Result Comment: The HPV DNA reflex criteria were not met with this specimen result therefore, no HPV testing was performed. . Performed By: #### T SH, T4 #### [facility] [address] [place] [address] Dr. Cristiana Bautista Specimen adequacy: Comment Normal [facility] Comment on above: Result Comment: Sati sfactory for evaluation. Endocervical and/or squamous metaplastic cells (endocervical component) are present. Performed By: #### T SH, T4 #### [facility] [address] [place] [address] Dr. Cristiana Bautista T4on 06-07-2022 T4 [Mass/Vol] 4.70 ug/dL Critically low 4.80-13.90 [facility] Comment on above: Performed By: #### T SH, T4 #### [facility] [address] [place] [address] Dr. Cristiana Bautista TSHon 06-07-2022 TSH 7.684 uIU/mL Critically high 0.358-3.740 [facility] Comment on above: Performed By: #### T SH, T4 #### [facility] [address] [place] [address] Dr. Cristiana Bautista VARICELLA IGG ABon Varicella Zoster IgG 273 index Normal Immune >165 [facility] Comment on above: Result Comment: Nega tive <135 Equivocal 135 - 165 Positive >165 A positive result generally indicates exposure to the pathogen or administration of specific immunoglobulins, but it is not indication of active infection or stage of disease. Performed By: #### V ARCEL #### [facility] [address] [place] [address] Dr. Cristiana Bautista CBC AUTO DIFFon 04-23-2022 BASO # 0.0 103/ul Normal 0.0-0.1 [facility] Comment on above: Performed By: #### C BC #### [facility] [address] [place] [address] Dr. Cristiana Bautista Basophils/100 WBC (Bld) 0.4 % Normal 0.2-2.0 [facility] Comment on above: Performed By: #### C BC #### [facility] [address] [place] [address] Dr. Cristiana Bautista EO # 0.1 103/ul Normal 0.0-0.7 [facility] Comment on above: Performed By: #### C BC #### [facility] [address] [place] [address] Dr. Cristiana Bautista Eosinophils/100 WBC (Bld) 2.3 % Normal 0.9-7.0 [facility] Comment on above: Performed By: #### C BC #### [facility] [address] [place] [address] Dr. Cristiana Bautista Erythrocyte distribution width (RBC) [Ratio] 11.3 % Normal 11.0-15.0 [facility] Comment on above: Performed By: #### C BC #### [facility] [address] [place] [address] Dr. Cristiana Bautista Hematocrit (Bld) [Volume fraction] 35.8 % Critically low 36.0-48.0 [facility] Comment on above: Performed By: #### C BC #### [facility] [address] [place] [address] Dr. Cristiana Bautista Hemoglobin (Bld) [Mass/Vol] 13.0 g/dL Normal 12.0-16.0 [facility] Comment on above: Performed By: #### C BC #### [facility] [address] [place] [address] Dr. Cristiana Bautista IG # 0.01 10e3/ul Normal 0.00-0.03 [facility] Comment on above: Performed By: #### C BC #### [facility] [address] [place] [address] Dr. Cristiana Bautista IG % 0.2 % Normal 0.0-0.5 [facility] Comment on above: Performed By: #### C BC #### [facility] [address] [place] [address] Dr. Cristiana Bautista LYMPH # 2.7 103/ul Normal 1.2-3.8 [facility] Comment on above: Performed By: #### C BC #### [facility] [address] [place] [address] Dr. Cristiana Bautista Lymphocytes/100 WBC (Bld) 51.0 % Normal 20.5-60.0 [facility] Comment on above: Performed By: #### C BC #### [facility] [address] [place] [address] Dr. Cristiana Bautista MANUAL DIFF REQ NO Normal [facility] Comment on above: Performed By: #### C BC #### [facility] [address] [address] [address] Cristiana Bautista MCH (RBC) [Entitic mass] 27.7 pg Normal 26.7-34.0 [facility] Comment on above: Performed By: #### C BC #### [facility] [address] [place] [address] Dr. Cristiana Bautista MCHC (RBC) [Mass/Vol] 36.3 g/dL Critically high 29.9-35.2 [facility] Comment on above: Performed By: #### C BC #### [facility] [address] [place] [address] Dr. Cristiana Bautista MCV (RBC) [Entitic vol] 76.3 fL Critically low 81.0-99.0 [facility] Comment on above: Performed By: #### C BC #### [facility] [address] [place] [address] Dr. Cristiana Bautista MONO # 0.3 103/ul Normal 0.3-0.8 [facility] Comment on above: Performed By: #### C BC #### [facility] [address] [place] [address] Dr. Cristiana Bautista Monocytes/100 WBC (Bld) 6.3 % Normal 1.7-12.0 [facility] Comment on above: Performed By: #### C BC #### [facility] [address] [place] [address] Dr. Cristiana Bautista NEUT # 2.1 103/ul Normal 1.4-6.5 [facility] Comment on above: Performed By: #### C BC #### [facility] [address] [place] [address] Dr. Cristiana Bautista Neutrophils/100 WBC (Bld) 39.8 % Critically low 43.0-75.0 [facility] Comment on above: Performed By: #### C BC #### [facility] [address] [place] [address] Dr. Cristiana Bautista Platelet mean volume (Bld) [Entitic vol] 9.2 fL Critically low 9.5-13.5 [facility] Comment on above: Performed By: #### C BC #### [facility] [address] [address] [address] Cristiana Bautista PLT 370 103/ul Normal 150-450 [facility] Comment on above: Performed By: #### C BC #### [facility] [address] [place] [address] Dr. Cristiana Bautista RBC 4.69 106/ul Normal 4.20-5.40 [facility] Comment on above: Performed By: #### C BC #### [facility] [address] [place] [address] Dr. Cristiana Bautista WBC 5.3 103/ul Normal 4.0-11.0 [facility] Comment on above: Performed By: #### C BC #### [facility] [address] [place] [address] Dr. Cristiana Bautista DRUG SCREEN RAPID (URINE)on 04-23-2022 AMP Negative Normal NEGATIVE [facility] Comment on above: Performed By: #### T SH, T4 #### [facility] [address] [place] [address] Dr. Cristiana Bautista BAR Negative Normal NEGATIVE [facility] Comment on above: Performed By: #### T SH, T4 #### [facility] [address] [place] [address] Dr. Cristiana Bautista BUP Negative Normal NEGATIVE [facility] Comment on above: Performed By: #### T SH, T4 #### [facility] [address] [place] [address] Dr. Cristiana Bautista BZO Negative Normal NEGATIVE [facility] Comment on above: Performed By: #### T SH, T4 #### [facility] [address] [place] [address] Dr. Cristiana Bautista DEONTE Negative Normal NEGATIVE [facility] Comment on above: Performed By: #### T SH, T4 #### [facility] [address] [place] [address] Dr. Cristiana Bautista CUT-OFFS SEE BELOW Normal [facility] Comment on above: Result Comment: AMP [...] Performed By: #### T SH, T4 #### [facility] [address] [place] [address] Dr. Cristiana Bautista DRUG CUT HEADER DRUG CLASS TEST SYSTEM CUT-OFF CONCENTRATIONS ARE FOLLOWS: Normal [facility] Comment on above: Performed By: #### T SH, T4 #### [facility] [address] [place] [address] Dr. Cristiana Bautista mAMP Negative Normal NEGATIVE [facility] Comment on above: Performed By: #### T SH, T4 #### [facility] [address] [place] [address] Dr. Cristiana Bautista MTD Negative Normal NEGATIVE [facility] Comment on above: Performed By: #### T SH, T4 #### [facility] [address] [place] [address] Dr. Cristiana Bautista OPI Negative Normal NEGATIVE [facility] Comment on above: Performed By: #### T SH, T4 #### [facility] [address] [place] [address] Dr. Cristiana Bautista OXY Negative Normal NEGATIVE [facility] Comment on above: Performed By: #### T SH, T4 #### [facility] [address] [place] [address] Dr. Cristiana Bautista PCP Negative Normal NEGATIVE [facility] Comment on above: Performed By: #### T SH, T4 #### [facility] [address] [place] [address] Dr. Cristiana Bautista PPX Negative Normal NEGATIVE [facility] Comment on above: Performed By: #### T SH, T4 #### [facility] [address] [address] [address] Cristiana Bautista TCA Negative Normal NEGATIVE [facility] Comment on above: Performed By: #### T SH, T4 #### [facility] [address] [address] [address] Cristiana Bautista THC Negative Normal NEGATIVE [facility] Comment on above: Performed By: #### T SH, T4 #### [facility] [address] [address] [address] Cristiana Bautista LIPID PROFILEon 04-23-2022 CHOL-HDL RATIO NORM SEE BELOW Normal [facility] Comment on above: Result Comment: 3.3 - 4.4 LOW RISK 4.4 - 7.1 AVERAGE RISK 7.1 - 11.0 MODERATE RISK >11.0 HIGH RISK Performed By: #### L IPID, CMP #### [facility] [address] [place] [address] Dr. Cristiana Bautista Cholesterol [Mass/Vol] 156 mg/dL Normal <=200 [facility] Comment on above: Performed By: #### L IPID, CMP #### [facility] [address] [place] [address] Dr. Cristiana Bautista Cholesterol in HDL [Mass/Vol] 43 mg/dL Normal 40-60 [facility] Comment on above: Performed By: #### L IPID, CMP #### [facility] [address] [place] [address] Dr. Cristiana Bautista Cholesterol in LDL [Mass/Vol] 95.2 mg/dL Normal [facility] Comment on above: Performed By: #### L IPID, CMP #### [facility] [address] [place] [address] Dr. Cristiana Bautista Cholesterol.total/C holesterol in HDL [Mass ratio] 3.6 {ratio} Normal [facility] Comment on above: Performed By: #### L IPID, CMP #### [facility] [address] [place] [address] Dr. Cristiana Bautista HDL NORMAL > or = 60 mg/dl - LO W CARDIOVASCULAR RISK <40 mg/dl - HIGH CARDIOVASCULAR RISK Normal [facility] Comment on above: Performed By: #### L IPID, CMP #### [facility] [address] [place] [address] Dr. Cristiana Bautista LDL CALC NORMAL SEE BELOW Normal [facility] Comment on above: Result Comment: <100 mg/dl OPTIMAL 100 - 129 mg/dl NEAR OR ABOVE OPTIMAL 130 - 159 mg/dl BORDERLINE HIGH 160 - 189 mg/dl HIGH >190 mg/dl VERY HIGH Performed By: #### L IPID, CMP #### [facility] [address] [place] [address] Dr. Cristiana Bautista Triglyceride [Mass/Vol] 89 mg/dL Normal <=150 [facility] Comment on above: Performed By: #### L IPID, CMP #### [facility] [address] [place] [address] Dr. Cristiana Bautista VLDL CALC 17.8 mg/dL Normal [facility] Comment on above: Performed By: #### L IPID, CMP #### [facility] [address] [place] [address] Dr. Cristiana Bautista PROF 14(COMP METB)on 023 Albumin [Mass/Vol] 3.7 g/dL Normal 3.4-5.0 [facility] Comment on above: Performed By: #### L IPID, CMP #### [facility] [address] [place] [address] Dr. Cristiana Bautista Albumin/Globulin [Mass ratio] 1.0 {ratio} Normal [facility] Comment on above: Performed By: #### L IPID, CMP #### [facility] [address] [place] [address] Dr. Cristiana Bautista ALP [Catalytic activity/Vol] 72 U/L Normal 46-116 [facility] Comment on above: Performed By: #### L IPID, CMP #### [facility] [address] [place] [address] Dr. Cristiana Bautista ALT [Catalytic activity/Vol] 18 U/L Normal 14-59 [facility] Comment on above: Performed By: #### L IPID, CMP #### [facility] [address] [place] [address] Dr. Cristiana Bautista Anion gap [Moles/Vol] 11.2 mmol/L Normal [facility] Comment on above: Performed By: #### L IPID, CMP #### [facility] [address] [place] [address] Dr. Cristiana Bautista AST [Catalytic activity/Vol] 16 U/L Normal 15-37 [facility] Comment on above: Performed By: #### L IPID, CMP #### [facility] [address] [place] [address] Dr. Cristiana Bautista Bilirubin [Mass/Vol] 0.4 mg/dL Normal 0.2-1.0 [facility] Comment on above: Performed By: #### L IPID, CMP #### [facility] [address] [place] [address] Dr. Cristiana Bautista Calcium [Mass/Vol] 8.8 mg/dL Normal 8.5-10.1 [facility] Comment on above: Performed By: #### L IPID, CMP #### [facility] [address] [place] [address] Dr. Cristiana Bautista Chloride [Moles/Vol] 104 mmol/L Normal 98-107 [facility] Comment on above: Performed By: #### L IPID, CMP #### [facility] [address] [place] [address] Dr. Cristiana Bautista CO2 [Moles/Vol] 29.9 mmol/L Normal 21.0-32.0 [facility] Comment on above: Performed By: #### L IPID, CMP #### [facility] [address] [place] [address] Dr. Cristiana Bautista Creatinine [Mass/Vol] 0.44 mg/dL Critically low 0.55-1.02 [facility] Comment on above: Performed By: #### L IPID, CMP #### [facility] [address] [place] [address] Dr. Cristiana Bautista EGFR-AF HAITIAN >60 Normal >=60 [facility] Comment on above: Performed By: #### L IPID, CMP #### [facility] [address] [place] [address] Dr. Cristiana Bautista EGFR-NON AF HAITIAN >60 Normal >=60 [facility] Comment on above: Performed By: #### L IPID, CMP #### [facility] [address] [place] [address] Dr. Cristiana Bautista Globulin (S) [Mass/Vol] 3.7 g/dL Normal [facility] Comment on above: Performed By: #### L IPID, CMP #### [facility] [address] [address] [address] Cristiana Bautista Glucose [Mass/Vol] 94 mg/dL Normal 74-106 [facility] Comment on above: Performed By: #### L IPID, CMP #### [facility] [address] [place] [address] Dr. Cristiana Bautista Potassium [Moles/Vol] 4.1 mmol/L Normal 3.5-5.1 [facility] Comment on above: Performed By: #### L IPID, CMP #### [facility] [address] [place] [address] Dr. Cristiana Bautista Protein [Mass/Vol] 7.4 g/dL Normal 6.4-8.2 [facility] Comment on above: Performed By: #### L IPID, CMP #### [facility] [address] [place] [address] Dr. Cristiana Bautista Sodium [Moles/Vol] 141 mmol/L Normal 136-145 [facility] Comment on above: Performed By: #### L IPID, CMP #### [facility] [address] [place] [address] Dr. Cristiana Bautista Urea nitrogen [Mass/Vol] 8.0 mg/dL Normal 7.0-18.0 [facility] Comment on above: Performed By: #### L IPID, CMP #### [facility] [address] [place] [address] Dr. Cristiana Bautista Urea nitrogen/Creatinine [Mass ratio] 18.2 mg/mg Normal [facility] Comment on above: Performed By: #### L IPID, CMP #### [facility] [address] [address] [address] Cristiana Bautista T4on 04-23-2022 T4 [Mass/Vol] 10.10 ug/dL Normal 4.80-13.90 [facility] Comment on above: Performed By: #### T SH, T4 #### [facility] [address] [place] [address] Dr. Cristiana Bautista TSHon 04-23-2022 TSH Qn m[IU]/L Critically low 0.358-3.740 [facility] Comment on above: Performed By: #### T SH, T4 #### [facility] [address] [place] [address] Dr. Cristiana Bautista COVID/FLU/RSV RT-PCRon 04-19 SARS-CoV-2 (COVID-19) RNA SURAJ+probe Ql (Unsp spec) Negative [facility] [employer] Other COVID/FLU/RSV RT-PCR Negative [employer] [facility] [employer] Other COVID/FLU/RSV RT-PCR neggative [employer] [facility] [employer] Other T4on 03-12-2022 T4 [Mass/Vol] 15.90 ug/dL Critically high 4.80-13.90 [facility] Comment on above: Performed By: #### T SH, T4 #### [facility] [address] [place] [address] Dr. Cristiana Bautista TSHon 03-12-2022 TSH Qn m[IU]/L Critically low 0.358-3.740 [facility] Comment on above: Performed By: #### T SH, T4 #### [facility] [address] [place] [address] Dr. Cristiana Bautista T4on 02-01-2022 T4 [Mass/Vol] 13.00 ug/dL Normal 4.80-13.90 [facility] Comment on above: Performed By: #### T SH, T4 #### [facility] [address] [place] [address] Dr. Cristiana Bautista TSHon 02-01-2022 TSH 0.001 uIU/mL Critically low 0.358-3.740 [facility] Comment on above: Performed By: #### T , T4 #### [facility] [address] [address] [address] Cristiana Bautista Event Monitoron 01-07-2019 Event [...] BY: Julio Mendenhall MD aek Dictated: 01/07/2019 #[id number] Typed: 01/07/2019 #[id number] cc: Julio Mendenhall MD [facility] Comment on above: Result Comment: Elec tronically Signed By: Za GARCIA, Julio Hill\.br\Date and Time Signed: 01/07/19 16:27 EDT Coding Summary.on 12-19-2018 Coding Summary. CODING DATE: 12/19/2018 [facility] STATUS: Home (Routine DC) PAYOR: Medicaid [...] CphT Date Saved: 12/19/2018 07:42 am Normal [facility] Coding Summary.on 12-03-2018 Coding Summary. CODING DATE: 12/03/2018 FINAL [facility] STATUS: Home (Routine DC) PAYOR: Medicaid EAPG [...] Saved: 12/03/2018 10:29 am Normal [facility] Echo Transthoracic Completeo n 11-20-2018 Echo Transthoracic Complete Echocardiology Procedure Exam Date/Time Accession # Ordering Echo Transthoracic 11/08/2018 11:47 EDT [id number] Kentrell Perez DO Complete CPT code 76392 Reason for Exam (Echo Transthoracic Complete) MITROVALVE [...] Ordering Dr. Bell Transthoracic 11/08/2018 11:47 EDT [id number] Kentrell Perez DO Complete Report 9. Pulmonic valve: Structurally normal with trivial pulmonic regurgitation. 10. Pericardium: No effusion seen. 11. Aortic root: Normal in size. IMPRESSION : 1. Technically adequate study. 2. Absence of significant valvular heart disease. 3. Ejection fraction 55-60%. FINAL REPORT Signed (Electronic Signature): 11/20/2018 7:58 pm Signed by: Rosibel Quiroz MD Transcribed by: modesta Technologist: ANAMIKA Sin [facility] Coding Summary.on 11-09-2018 Coding Summary. CODING DATE: 11/09/2018 FINAL [facility] DSC STATUS: Home (Routine DC) PAYOR: [...] Pradhan CphT Date Saved: 11/09/2018 12:11 pm [facility] Vital Signs Date Time Vital Sign Value Performing Clinician Facility 12-11-2023 15:46-0400 Body weight 57.61 kg Gladis Moody DO Work Phone: [facility] 12-11-2023 15:46-0400 Diastolic blood pressure 70 mm[Hg] SmarterShadeo DO Work Phone: [facility] 12-11-2023 15:46-0400 Systolic blood pressure 110 mm[Hg] Gladis Moody DO Work Phone: [facility] 12-03-2022 10:15-0400 Body height 149.86 cm Ellejac Benoit Other [facility] Other 12-03-2022 10:15-0400 Body mass index (BMI) [Ratio] 24.84 kg/m2 Elle Benoit Other [facility] Other 12-03-2022 10:15-0400 Body temperature 99.1 [degF] Elle Beniot Other [facility] Other 12-03-2022 10:15-0400 Body weight 55.79 kg Elle Benoit Other [facility] Other 12-03-2022 10:15-0400 Respiratory rate 16 /min Elle Benoit Other [facility] Other 12-03-2022 10:15-0400 SaO2% (BldA) [Mass fraction] 98 % Elle Benoit Other [facility] Other 04-19-2022 11:00-0500 Body height 149.86 cm Clau Genao Other [facility] Other 04-19-2022 11:00-0500 Body mass index (BMI) [Ratio] 24.23 kg/m2 Clau Genao Other [facility] Other 04-19-2022 11:00-0500 Body temperature 99.8 [degF] Clau Genao Other [facility] Other 04-19-2022 11:00-0500 Body weight 54.43 kg Clau Genao Other [facility] Other 04-19-2022 11:00-0500 Respiratory rate 18 /min Clau Genao Other [facility] Other 04-19-2022 11:00-0500 SaO2% (BldA) [Mass fraction] 96 % Clau Genao Other [facility] Other Encounters Encounter Date Encounter Type Care [...] [facility] Start: 09-14-2023 End: 09-14-2023 ambulatory [facility] Start: 04-07-2023 End: 04-07-2023 ambulatory DELIA [facility] Start: 12-03-2022 End: 12-03-2022 ambulatory Elle Benoit Other [facility] Other Start: 12-03-2022 Office outpatient visit 15 minutes Elle Benoit [facility] Start: 10-04-2022 End: 10-06-2022 ambulatory LUIS A BECKETT [facility] Start: 07-26-2022 End: 07-27-[address] KENTRELL PEREZ Facility:[facility] Start: 06-07-2022 End: 06-08-[address] KENTRELL PEREZ Facility:[facility] Start: 05-31-2022 End: 05-31-2022 ambulatory GLADIS URIOSTEGUI Facility:[facility] Start: 05-09-2022 End: 05-10-2022 ambulatory JASBIR HAM Facility:[facility] Start: 04-25-2022 Encounter for genera l adult medical examination without abnormal findings JASBIR AHM [facility] Start: 04-23-2022 End: 04-24-[address] KENTRELL PEREZ Facility:[facility] Start: 04-23-2022 End: 04-24-2022 Encounter for general adult medical examination without abnormal findings JASBIR HAM Facility:[facility] Start: 04-19-2022 End: 04-19-2022 ambulatory Clau Genao [facility] Other Start: 04-19-2022 Office outpatient visit 15 minutes Clau Birgit [facility] Start: 03-12-2022 End: 03-13-[address] KENTRELL PEREZ Facility:[facility] Start: 02-01-2022 End: 02-02-[address] KENTRELL PEREZ Facility:[facility] Start: 07-05-2021 End: 07-10-2021 Pre-admission assessment Addison Johnson [facility] Procedures Date Procedure Procedure Detail Performing Clinician Start: 12-26-2023 H PREG QUANT HCG Core y Moody DO Work Phone: Plan of Treatment Date Care Activity Detail Author Start: 01-31-2024 End: 01-31-2024 Patient encounter procedure 01/31/2024 8:10 AM EDT Office Visit [facility] [address] [place] [address] Gladis Uriostegui DO [address], [place] [id number] [facility] Start: 01-09-2024 End: 01-09-2024 Patient encounter procedure 01/09/2024 3:00 PM EDT Office Visit [facility] [address] [place] [address] Myrtle Laboy PA [address] [place], [place] [id number] [facility] Start: 12-27-2023 End: 12-27-2023 Professional / ancillary services management 12/27/2023 1:00 PM EDT Ancillary Procedure [facility] [address] [place] [id number] [facility] Start: 12-17-2023 Influenza vaccination Influenza Vacc ine (#1) [facility] Start: 12-11-2023 End: 12-11-2023 Patient encounter procedure 12/11/2023 3:20 PM EDT Office Visit [facility] [address] [id number] Gladis Uriostegui DO [address] [place] [address] Arrived [facility] Comment on above: Arrived Start: 12-11-2023 End: 12-10-2024 DHEA DHEA Lab Routine Irregular menstrual cycle PCOS (polycystic ovarian syndrome) Expected: 12/11/2023 (Approximate), Expires: 12/10/2024 [facility] Comment on above: Expected: 12/11/2023 (Approximate), Expires: 12/10/2024 Start: 12-11-2023 End: 12-10-2024 US for US PELVIS-TRANSVAG IF INDICATED Imaging Routine Irregular menstrual cycle PCOS (polycystic ovarian syndrome) Expected: 12/11/2023 (Approximate), Expires: 12/10/2024 [facility] Comment on above: Expected: 12/11/2023 (Approximate), Expires: 12/10/2024 CBC W Auto Different ial panel - Blood CBC and differential Lab Routine Irregular menstrual cycle PCOS (polycystic ovarian syndrome) Ordered: 12/11/2023 [facility] Comment on above: Ordered: 12/11/2023 DHEA-sulfate DHEA-sulfate Lab Routine Irregular menstrual cycle PCOS (polycystic ovarian syndrome) Ordered: 12/11/2023 [facility] Comment on above: Ordered: 12/11/2023 Follicle stimulating hormone Follicle stimulating hormone Lab Routine Irregular menstrual cycle PCOS (polycystic ovarian syndrome) Ordered: 12/11/2023 [facility] Comment on above: Ordered: 12/11/2023 hCG, quantitative, hCG, quantitative, Lab Routine Irregular menstrual cycle PCOS (polycystic ovarian syndrome) Ordered: 12/11/2023 [facility] Work Phone: Comment on above: Ordered: 12/11/2023 Hemoglobin A1c/Hemoglobin.total in Blood Hemoglobin A1c Lab Routine Irregular menstrual cycle PCOS (polycystic ovarian syndrome) Ordered: 12/11/2023 [facility] Comment on above: Ordered: 12/11/2023 Luteinizing hormone Luteinizing hormone Lab Routine Irregular menstrual cycle PCOS (polycystic ovarian syndrome) Ordered: 12/11/2023 [facility] Comment on above: Ordered: 12/11/2023 Thyrotropin [Units/volume] in Serum or Plasma TSH Lab Routine Irregular menstrual cycle PCOS (polycystic ovarian syndrome) Ordered: 12/11/2023 [facility] Comment on above: Ordered: 12/11/2023 Thyroxine (T4) free [Mass/volume] in Serum or Plasma T4, free Lab Routine Irregular menstrual cycle PCOS (polycystic ovarian syndrome) Ordered: 12/11/2023 [facility] Comment on above: Ordered: 12/11/2023 Immunizations Immunization Date Immunization Notes Care Provider Alvin griffith 10-14-2013 influenza virus vacc ine, unspecified formulation Gladis Uriostegui DO Work Phone: [facility] Payers Date Payer Category Payer Private Health Insurance [employer] Member Subscriber Plan / Payer (Effective 2022-Present) Name: Estephanie Kothari Member ID: [id number] Relation to Subscriber: Self Name: Estephanie Kothari Subscriber ID: [id number] Payer ID: Not on file Group ID: Not on file Type: Not on file Address: [address] [place] [address] [id number] 2022 Unknown [employer] [facility] CONTIGO [id number] 2022-Present [phone] [address] [place] [address] [id number] 2022 Blue Cross Blue [facility] [id number] 1997 Unknown [id number] [id number]. 593 1997 Unknown [id number] 2.16.840.1.854080.3.579.2. 593 1997 Unknown [id number] 2.16.840.1.226466.3.579.2. 593 1997 Unknown [id number] 2.16.840.1.805166.3.579.2. 593 1997 Unknown [id number] 2.16.840.1.386947.3.579.2. 593 1997 Unknown [id number] 2.16.840.1.287717.3.579.2. 593 1997 Unknown [id number] 2.16.840.1.489630.3.579.2. 593 1997 Unknown [id number] 2.16.840.1.292854.3.579.2. 593 1997 Unknown [id number] [id number]. 1259 1957 [facility] [id number] 1957 Medicaid [id number] Social History Date Type Detail Facility Start: 11-30-2018 Tobacco smoking status Never smoked tobacco (finding) [facility] Sex Assigned At Female [facility] Tobacco smoking status DCIS Tobacco smoking consumption unknown [facility] Start: 1995 Sex assigned at Not on file [facility] Start: 06-04-2023 Gender identity Identifies as female gender (finding) [facility] Clinical Notes 04-19-2022 to 01-31-2024 Mari Vogel LPN - 01/31/2024 8:10 AM EDTSronnell Pretty LPN - 12/11/2023 3:20 PM EDT Note Date & Type Note Facility 01-31-2024 History of Present illness Narrative Reason for Appointment: Patient ID: Estephanie Kothari is a 28 y.o. female who presents for Telehealth Patient presents today via telephone call for a telehealth appointment. Patients Phone #: [phone] (mobile) Current Medications: has a current medication [...] Gladis Uriostegui DO documented in this encounter [facility] 12-11-2023 History of Present illness Narrative Reason [...] Gladis Uriostegui DO documented in this encounter [facility] 09-14-2023 Note [place] [facility] Subjective Estephanie Kothari is a 28 y.o. year old female patient being seen for 6 months FU Patient Active Problem List Diagnosis Paroxysmal SVT (supraventricular tachycardia) ([facility]) H/O sinus tachycardia Thyroid condition Body mass [...] bpm, otherwise normal EKG Echo: 04/28/2023 in [facility] 30-day event Monitor: 08/09/2022 to 09/07/2022 [...] Beckett in 1 year. Ekaterina Decker MD, [facility] 09-14-2023 Note Patient here for 6 m [...] All other systems reviewed and are negative. [facility] 04-07-2023 Note [facility]rophys[facility] Consult Note Reason [...] felt close. She has noted this since stamp mounter but frequency was 1-2/yr which has increased [...] Assessment and Plan: Paroxysmal SVT (supraventricular tachycardia) ([facility]) - 30-day event monitor reveals long RP [...] as needed Delia Diaz NP Cardiac Electrophysiology [facility] 04-07-2023 Note Patient here for 6 m o follow up SVT. Says she will be having thyroid function checked soon. C/o palpitations and SOB w/wo exertion. Denies chest pain and lightheadedness. Review of Systems Cardiovascular: Positive for dyspnea on exertion, irregular heartbeat and palpitations. Respiratory: Positive for shortness of breath. All other systems reviewed and are negative. [facility] 12-03-2022 Evaluation note Encounter Date Diagnosis Assessment [...] no improvement in 2 to 3 days [facility] Other 06-20-2023 NoteUT Electrophysiology Consult Note Date of Telehealth Visit: 10/04/22 The patient was notified that using 3rd green party telecommunication application (e.g., [employer]) is not HIPPA compliant and may carry some privacy risks. Yes The visit was conducted [id number] with the use of audio and video [...] felt close. She has noted this since stamp mounter but frequency was 1-2/yr which has increased [...] Assessment and Plan: Paroxysmal SVT (supraventricular tachycardia) ([facility]) - 30-day event monitor reveals long RP tachycardia. Tjose with 130-140 likely sinus tachy but one at 170-180bpm maybe SVT. Discussed findings with patient. She has felt better sin (more content not included)...[facility]01-03-2023 Evaluation note* Encounter Date Diagnosis Assessment Notes [...] go away, Acute bronchitis material was printed [facility] Other Evaluation + Plan note No data available for this section [facility] Diagnosis PCOS (polycystic ovarian syndrome) Polycystic ovaries [facility] Diagnosis Irregular menstrual cycle BV (bacterial vaginosis) Unspecified vaginitis and vulvovaginitis PCOS (polycystic ovarian syndrome) Polycystic ovaries [facility] N[facility]ative - Reported* Type Description Date Medical History mitral valve prolapse Medical History svt's Medical History Graves disease [facility] Other Hospital Discharge instructions No data available for this section [facility] Summary Purpose Family History No Family History Records FoundNo Family History Records FoundNo Family History Records FoundNo Family History Records Found Advance Directives No Advanced Directives Records FoundNo Advanced Directives Records FoundNo Advanced Directives Records FoundNo Advanced Directives Records Found Additional Source Comments INFORMATION SOURCE (unrecogn ized section and content) DATE CREATED AUTHOR 01/17/2019 [facility] DATE CREATED AUTHOR AUTHOR'S ORGANIZ ATION [facility]01/2022 [facility] DATE CREATED AUTHOR AUTHOR'S ORGANIZ ATION 09/15/2023 [facility] DATE CREATED AUTHOR AUTHOR'S ORGANIZ ATION 12/13/2023 [facility] Special[facility] EPIC REASON FOR VISIT (unrecogniz ed [...] BE BASED ON THE PRIMARY CLINICAL RECORDS. [employer] [facility]. provides no warranty or guarantee of the accuracy or completeness of information in this document.
== END 2024-09-27 13:35 | disposition home or self-care (01) ==
LOC: LAB 13:35
PROVIDERS: PCP Nurse Practitioner; Visit Provider Nurse Practitioner
DX: E05.90 Thyrotoxicosis, unspecified without thyrotoxic crisis or storm (principal)
CPT/HCPCS: 36415; 84443

== ENCOUNTER 2025-03-26 09:30 | Outpatient (OUT) | payer BC, SELFPAY ==
--- OUTSIDE RECORDS SUMMARY | 2025-03-26 09:48 | XMS_ITS | CCD ---
Author Organization [facility] Care Team Providers Care Fuel Testing Technician Name Role Phone Kentrell Bobo Primary Care Physician Clau Genao HOUSE, DR SWAIN Admitting Unavailable BARNEY, DR SWAIN Attending Unavailable BARNEY, DR SWAIN Primary Care Unavailable BARNEY, DR SWAIN Consulting Unavailable BARNEY, DR SWAIN Admitting Unavailable BARNEY, DR SWAIN Attending Unavailable BARNEY, DR SWAIN Primary Care Unavailable BARNEY, DR SWAIN Consulting Unavailable BARNEY, DR SWAIN Admitting Unavailable BARNEY, DR SWAIN Attending Unavailable HOUSE, DR SWAIN Primary Care Unavailable HOUSE, DR SWAIN Consulting Unavailable JITENDRA, JASBIR Admitting Unavailable HAM, JASBIR Attending Unavailable HAM, JASBIR Consulting Unavailable JITENDRA, JASBIR Admitting Unavailable HAM, JASBIR Attending Unavailable ANA, DR SWAIN Primary Care Unavailable JITENDRA, JASBIR Consulting Unavailable MOODY, GLADIS Admitting Unavailable MOODY, GLADIS Attending Unavailable HOUSE, DR SWAIN Primary Care Unavailable MOODY, GLADIS Consulting Unavailable BARNEY, DR SWAIN Admitting Unavailable HOUSE, DR SWAIN Attending Unavailable HOUSE, DR SWAIN Primary Care Unavailable BARNEY, DR SWAIN Consulting Unavailable BARNEY, DR SWAIN Admitting Unavailable BARNEY, DR SWAIN Attending Unavailable HOUSE, DR SWAIN Primary Care Unavailable HOUSE, DR SWAIN Consulting Unavailable Elle Benoit Unavailable Unavailable Primary Care Provider PÉREZ Ferrara Attending Unavailable MOODY, GLADIS Attending Unavailable Allergies Allergy ClassificationReported Allergen(s)Allergy TypeDate of OnsetReaction(s) Facility (9 sources)Fluconazole; Translations: [FLUCONAZOLE]Propensity to adverse gnaypscqt52-76-0490MT intoleranceMineral Area Regional Medical Center Work Phone: (9 sources)metroNIDAZOLE; Translations: [METRONIDAZOLE]Drug Yngdlzq10-60-1174 [facility] Medications Current Medications MedicationDrug Class(es)DatesSig (Normalized)Sig (Original)[id number] 200 actuat albuterol 0.09 mg/actuat metered dose inhaler (8 sources)beta2-Adrenergic AgonistStart: 39-81-5865aqvz 2 puff(s) by inhalation every four hours as neededAlbuterol Sulfate HFA 108 (90 Base) MCG/ACT 2 puffs as needed Inhalation every 4 hrs Apr, Activetake 2 puff(s) by inhalation every six hoursalbuterol HFA 90 mcg/act inhaler Inhale 2 puffs every 6 (six) hours if needed Activebenzonatate 100 mg oral capsule (1 source)Non-narcotic AntitussiveStart: 14-54-9919qnrp 1 capsule by mouth every eight hoursTessalon Perles 100 MG 1 capsule as needed Orally Three times a day Apr, ActivemethIMAzole 5 mg oral tablet (8 sources)Thyroid Hormone Synthesis InhibitorStart: 93-11-5770riey 2.5 mg by mouth once dailyTapazole 5 mg Tab 2.5 mg, Oral, Daily Start Date: 11/30/18 Status: Orderedtake 0.5 tablet by mouth once dailymethIMAzole (Tapazole) 5 MG tablet Take 0.5 tablets every day by oral route for 28 days. Active methylPREDNISolone 4 mg oral tablet (1 source)CorticosteroidStart: 62-13-9437jnmqdgFHBGYMZodwcy 4 MG as directed Orally Once a day for 6 days Apr, Goebkd27 hr metoprolol succinate 25 mg extended release oral tablet (7 sources)beta-Adrenergic Blockertake 1 tablet by mouth once dailymetoprolol succinate XL (Toprol-XL) 25 MG 24 hr tablet Take 1 tablet by mouth Daily Active predniSONE 20 mg oral tablet (1 source)Start: 40-39-6320zpsg 1 tablet by mouth every twelve hourspredniSONE 20 MG 1 tablet Orally bid for 5 day(s) Nov, Activepropylthiouracil 50 mg oral tablet (8 sources)Thyroid Hormone Synthesis Inhibitorpropylthiouracil (PTU) 50 MG tablet Activesecnidazole 2000 mg oral granules (7 sources)Start: 06-82-3666Vxxkifhohec (Solosec) 2 g pack as directed Orally for 1 days 05/31/2022 Active Completed/Discontinued Medications MedicationDrug Class(es)DatesSig (Normalized)Sig (Original)triamcinolone acetonide 40 mg/ml injectable suspension (1 source)CorticosteroidStart: 53-95-6991Futvoxz-40 Nov, 40 mg Problems Active Problems Problem ClassificationProblemDateDocumented DateEpisodic/ChronicAllergic reactions (1 source)Allergic contact dermatitis due to plants, except foodEpisodicCardiac dysrhythmias (4 sources)Palpitations; Translations: [Tachycardia, unspecified]Onset: 33-06-1672KukkrnvfQiygmoc obstructive pulmonary disease and bronchiectasis (1 source)Bronchitis, not specified as acute or chronicEpisodicMenstrual disorders (2 sources)Irregular periods; Translations: [Irregular menstruation, unspecified]80-54-3697UwneqsaSocmu endocrine disorders (4 sources)Polycystic ovary syndrome; Translations: [Polycystic ovarian syndrome]85-84-0187IwsjvcbVwqaa screening for suspected conditions (not mental disorders or infectious disease) (5 sources)Encounter for screening for malignant neoplasm of cervix; Translations: [Encounter for screening for cardiovascular disorders]Onset: 61-67-6913GhzizjfkLjhrlkvu codes; unclassified (4 sources)Immunization not carried out for unspecified reason; Translations: [IMMUN NOT CARRIED OUT UNS REASON]Onset: 04-91-8267MyyohptyYwxxovd disorders (5 sources)Thyrotoxicosis with diffuse goiter without thyrotoxic crisis or storm; Translations: [TTX DIFFUS GOITER NO THYROTOXC RAMILA]Onset: 04-25-2022 ChronicThyroid disorders (2 sources)Disorder of thyroid, unspecified; Translations: [Disorder of thyroid, unspecified]Onset: 53-50-1509MvvrbtzvKroxjvxvldoj (1 source)Supraventricular tachycardia, unspecified; Translations: [Supraventricular tachycardia, unspecified]Onset: 08-10-2022 Past or Other Problems Problem ClassificationProblemDateDocumented DateEpisodic/ChronicInflammatory diseases of female pelvic organs (2 sources)Bacterial vaginosis; Translations: [Acute vaginitis]12-11-2023 EpisodicUnclassified (1 source)Cough R05.9Unclassified (1 source)Supraventricular tachycardia, unspecified; Translations: [Supraventricular tachycardia, unspecified]Onset: 09-27-2024 Results Test NameValueInterpretationReference RangeFacilityOffice Visiton 09-27-2024 Follow-up [id number] Estephanie Kothari 1995 F Date Provider Department Center 09/27/2024 [id number] PAVON [facility] Family History Family Status - Relation Status Age at Mother Alive Father Alive Level of Service:74093 SD OFFICE/OUTPATIENT ESTABLISHED MOD [facility]DM [facility]/ TRANSVAGINALon 02-[place], [place] [address] Ultrasound Report Signed Patient: ESTEPHANIE KOTHARI MR#: [id number] : 1995 Acct:[id number] Age/Sex: 28 / F ADM Date: 12/27/23 Loc: [facility] Attending Dr: Gladis Uriostegui D.O. Ordering Physician: Gladis Uriostegui D.O. Date of Service: 12/27/23 Procedure(s): US pelvis w/ transvaginal Accession Number(s): [id number] cc: Gladis Uriostegui D.O.; Divya Damon [place] [address] Patient Name: ESTEPHANIE KOTHARI MRN: [id number] date: 1995 Sex: F Assigned Patient Location: [facility] Current Patient Location: Accession/Order Number: [id number] Exam Date: 12/27/2023 12:57 Report Date: 12/28/2023 [...] M.D. Signed By: 12/28/23827 DD/ 4 TD/TT: Top Frame Maker:TBHRadiology, Radiologist, - 12/28/2023 [place] [address] Ultrasound Report Signed Patient: ESTEPHANIE KOTHARI MR#: [id number] : 1995 Acct:[id number] Age/Sex: 28 / F ADM Date: 12/27/23 Loc: [facility] Attending Dr: Gladis Uriostegui D.O. Ordering Physician: Gladis Uriostegui D.O. Date of Service: 12/27/23 Procedure(s): US pelvis w/ transvaginal Accession Number(s): [id number] cc: Gladis Uriostegui D.O.; Divya Damon STRAIGHTENING MACHINE OPERATOR The [place] [address] Patient Name: ESTEPHANIE KOTHARI MRN: [id number] date: 1995 Sex: F Assigned Patient Location: [facility] Current Patient Location: Accession/Order Number: [id number] Exam Date: 12/27/2023 12:57 Report Date: 12/28/2023 [...] M.D. Signed By: 12/28/23827 DD/ 4 TD/TT: Top Frame Maker: [facility] HealthcareRadiology Study observation (narrative)[facility] HealthcareUS PELVIS W/ TRANSVAGINALOrdered By: Radiologist Radiology on 36-63-6450[facility] Work Phone: [facility] PREG QUANT HCGon 52-18-9057ZQN QUANTITATIVE<1 mIU/mLNOMS HealthcareComment on above:5-50 0.2-1 WEEK 50-500 1-2 WEEKS 100-5,000 2-3 WEEKS 500-10,000 3-4 WEEKS 1,000-50,000 4-5 WEEKS 10,000-100,000 5-6 WEEKS 15,000-200,000 6-8 WEEKS 10,000-100,000 2-3 MONTHS CLINISYNCNOCT BduvvmwxyqY2zv 79-43-9901V4 [Mass/Vol]8.60 ug/dLNormal4.80-13.90 The [facility] CenterComment on above:Performed By: #### TSH, T4 #### [facility] [address] [place] [address] Dr. Cristiana Velazquez 08-92-4532LWQ8.139 uIU/mLNormal0.358-3.740The [facility] CenterComment on above:Performed By: #### TSH, T4 #### [facility] [address] [place] [address] Dr. Cristiana Marcos ACOG PANEL 2: 21 to 29on 06-08-2022..NormalThe [facility] CenterComment on above:Performed By: #### TSH, T4 #### [facility] [address] [place] [address] Dr. Cristiana Woody Gdln ACOG Ccqrcer37-00WoocczYfq [facility] HospitalComment on above:Performed By: #### TSH, T4 #### [facility] [address] [place] [address] Dr. Cristiana BautistaDIAGNOSIS:CommentWayne Hospital on above: Result Comment: NEGATIVE FOR INTRAEPITHELIAL LESION OR MALIGNANCY.Performed By: #### TSH, T4 #### [facility] [address] [place] [address] Dr. Cristiana BautistaMethodology:CommentWayne Hospital on above: Result Comment: This liquid based ThinPrep(R) pap test was screened with the use of an image guided system.Performed By: #### TSH, T4 #### [place] [address] Dr. Cristiana BautistaNote:CommentWayne Hospital on above:Result Comment: The Pap smear is a screening test designed to aid in the detection of premalignant and malignant conditions of the uterine cervix. It is not a diagnostic procedure and should not be used as the sole means of detecting cervical cancer. Both false-positive and false-negative reports do occur. .Performed By: #### TSH, T4 #### [facility] [address] [place] [address] Dr. Cristiana BautistaPerformed by:CommentWayne Hospital on above: Result Comment: Pattie Garcia Graffiti Cleaner (ASCP)Performed By: #### TSH, T4 #### [place] [address] [address] Cristiana BautistaReflex Criteria:CommentWayne Hospital on above:Result Comment: The HPV DNA reflex criteria were not met with this specimen result therefore, no HPV testing was performed. .Performed By: #### TSH, T4 #### [facility] [address] [place] [address] Dr. Cristiana BautistaSpecimen adequacy:[facility] on above:Result Comment: Satisfactory for evaluation. Endocervical and/or squamous metaplastic cells (endocervical component) are present.Performed By: #### TSH, T4 #### [facility] [address] [place] [address] Dr. Cristiana BautistaT4on 68-88-7828Q5 [Mass/Vol]4.70 ug/dLCritically low4.80-13.90The [facility] CenterComment on above:Performed By: #### TSH, T4 #### [facility] [address] [place] [address] Dr. Cristiana BautistaTSHon 67-54-5166SQB1.684 uIU/mLCritically high0.358-3.740The [facility] CenterComment on above:Performed By: #### TSH, T4 #### [facility] [address] [place] [address] Dr. Cristiana BautistaVARPANKAJ IGG ABon 47-56-6537Wptwrtluv Zoster MeD274 indexNormal Immune >165The [facility] on above:Result Comment: Negative <135 Equivocal 135 - 165 Positive >165 A positive result generally indicates exposure to the pathogen or administration of specific immunoglobulins, but it is not indication of active infection or stage of disease.Performed By: #### VARCEL #### [facility] [address] [place] [address] Dr. Cristiana Panda AUTO DIFFon 52-18-7648ZPEF #0.0 103/ulNormal0.0-0.1The [facility] CenterComment on above:Performed By: #### CBC #### [facility] [address] [place] [address] Dr. Cristiana BautistaBasophils/100 WBC (Bld)0.4 %Normal0.2-2.0The [facility] Comment on above:Performed By: #### CBC #### [facility] [address] [place] [address] Dr. Cristiana Ansari #0.1 103/ulNormal0.0-0.7The [facility] CenterCommclaren port huron hospital on above: Performed By: #### CBC #### [facility] [address] [place] [address] Dr. Cristiana Daviesosinophils/100 WBC (Bld)2.3 %Normal0.9-7.0The [facility] Comment on above:Performed By: #### CBC #### [facility] [address] [place] [address] Dr. Cristiana Daviesrythrocyte distribution width (RBC) [Ratio]11.3 %Ydalay86.0-15.0 Kindred HealthcareComment on above:Performed By: #### CBC #### [facility] [address] [place] [address] Dr. Cristiana BautistaHematocrit (Bld) [Volume fraction]35.8 %Critically low36.0-48.0 The [facility] CenterComment on above:Performed By: #### CBC #### [facility] [address] [place] [address] Dr. Cristiana BautistaHemoglobin (Bld) [Mass/Vol]13.0 g/tSOckppd88.0-16.0The [facility] CenterComment on above:Performed By: #### CBC #### [facility] [address] [place] [address] Dr. Cristiana Valentine #0.01 10e3/ulNormal0.00-0.03The [facility] CenterComment on above:Performed By: #### CBC #### [facility] [address] [place] [address] Dr. Cristiana Valentine %0.2 %Normal0.0-0.5The Protestant Hospitalment on above: Performed By: #### CBC #### [facility] [address] [place] [address] Dr. Cristinaa Matthews #2.7 103/ulNormal1.2-3.8The [facility] CenterComment on above:Performed By: #### CBC #### [facility] [address] [place] [address] Dr. Cristiana Pierremphocytes/100 WBC (Bld)51.0 %Phlgvx12.5-60.0German Hospitalment on above:Performed By: #### CBC #### [facility] [address] [place] [address] Dr. Cristiana CantuUAL DIFF REQNONormalThe [facility] CenterComment on above: Performed By: #### CBC #### [facility] [address] [place] [address] Dr. Cristiana Ramirez (RBC) [Entitic mass]27.7 cyFpyszl33.7-34.0The [facility] CenterComment on above:Performed By: #### CBC #### [facility] [address] [place] [address] Dr. Cristiana Ramirez (RBC) [Mass/Vol]36.3 g/dLCritically high29.9-35.2The [facility] CenterComment on above:Performed By: #### CBC #### [facility] [address] [place] [address] Dr. Cristiana Pittman (RBC) [Entitic vol]76.3 fLCritically low81.0-99.0The [facility] CenterComment on above:Performed By: #### CBC #### [facility] [address] [place] [address] Dr. Cristiana Villaseñor #0.3 103/ulNormal0.3-0.8The [facility] CenterComment on above:Performed By: #### CBC #### [facility] [address] [place] [address] Dr. Cristiana Duckworthocytes/100 WBC (Bld)6.3 %Normal1.7-12.0The [facility] Comment on above:Performed By: #### CBC #### [facility] [address] [place] [address] Dr. Cristiana Ayala #2.1 103/ulNormal1.4-6.5The [facility] CenterComment on above:Performed By: #### CBC #### [facility] [address] [place] [address] Dr. Cristiana Zamorautrophils/100 WBC (Bld)39.8 %Critically low43.0-75.0The [facility] CenterComment on above:Performed By: #### CBC #### [facility] [address] [place] [address] Dr. Yilan ChangPlatelet mean volume (Bld) [Entitic vol]9.2 fLCritically low 9.5-13.5The [facility] CenterComment on above:Performed By: #### CBC #### [facility] [address] [place] [address] Dr. Cristiana ChoT370 103/suQzijyh304-682Wvf [facility] CenterComment on above: Performed By: #### CBC #### [facility] [address] [place] [address] Dr. Cristiana BautistaRBC4.69 106/ulNormal4.20-5.40The [facility] CenterComment on above:Performed By: #### CBC #### [facility] [address] [place] [address] Dr. Cristiana CeballosBC5.3 103/ulNormal4.0-11.0The [facility] CenterComment on above: Performed By: #### CBC #### [facility] [address] [place] [address] Dr. Cristiana BautistaDRUG SCREEN RAPID (URINE)on 63-45-6641JERGrcuxbxlBasdzeLRHXTLNS Kindred HealthcareComment on above:Performed By: #### TSH, T4 #### [facility] [address] [place] [address] Dr. Cristiana JeterNegativeNormalNEGATIVEMount Carmel Health System on above: Performed By: #### TSH, T4 #### [facility] [address] [place] [address] Dr. Cristiana MajorPNegativeNormalNEGATIVEKindred HealthcareCommclaren port huron hospital on above: Performed By: #### TSH, T4 #### [facility] [address] [place] [address] Dr. Cristiana BautistaBZONegativeNormalNEGATIVEKindred HealthcareCommclaren port huron hospital on above: Performed By: #### TSH, T4 #### [facility] [address] [place] [address] Dr. Cristiana ViramontesCNegativeNormalNEGATIVEKindred HealthcareComment on above: Performed By: #### TSH, T4 #### [facility] [address] [place] [address] Dr. Cristiana WillamsOhioHealth Mansfield Hospital on above: Result Comment: AMP (Amphetamine): 500ng/mL, BAR (Barbituates): 200 ng/mL, BZO (Benzodiazepines): 150 ng/mL, BUP (Buprenorphine): 10 ng/mL, DEONTE (Cocaine): 150 ng/mL, mAMP (Methamphetamine): 500 ng/mL, MTD (Methadone): 200 ng/mL, OPI (Opiates): 100 ng/mL, OXY (Oxycodone): 100 ng/mL, PCP (Phencyclidine): 25 ng/mL, PPX (Propoxyphene): 300 ng/mL, THC (Cannabinoids): 50 ng/mL, TCA (Trycyclic Antidepressants): 300 ng/mLPerformed By: #### TSH, T4 #### [facility] [address] [place] [address] Dr. Cristiana BautistaDRUG CUT HEADERDRUG CLASS TEST SYSTEM CUT-OFF CONCENTRATIONS ARE FOLLOWS:NormalMount Carmel Health System on above:Performed By: #### TSH, T4 #### [facility] [address] [place] [address] Dr. Cristiana BautistamAMPNegativeNormalNEGATIVEMount Carmel Health System on above: Performed By: #### TSH, T4 #### [facility] [address] [place] [address] Dr. Cristiana BautistaMTDNegativeNormalNEGATIVEMount Carmel Health System on above: Performed By: #### TSH, T4 #### [facility] [address] [place] [address] Dr. Cristiana BautistaOPINegativeNormalNEGATIVEMount Carmel Health System on above: Performed By: #### TSH, T4 #### [facility] [address] [place] [address] Dr. Cristiana BautistaOXYNegativeNormalNEGATIVEMount Carmel Health System on above: Performed By: #### TSH, T4 #### [facility] [address] [place] [address] Dr. Cristiana TothPNegativeNormalNEGATIVEKindred HealthcareComment on above: Performed By: #### TSH, T4 #### [facility] [address] [place] [address] Dr. Cristiana BautistaPPXNegativeBrecksville VA / Crille [facility] on above: Performed By: #### TSH, T4 #### [facility] [address] [place] [address] Dr. Cristiana BautistaTCANegativeNormalNEGOhioHealth Berger HospitalCommclaren port huron hospital on above: Performed By: #### TSH, T4 #### [facility] [address] [place] [address] Dr. Cristiana BautistaTHCNegativeNormalNEGOhioHealth Berger HospitalCommclaren port huron hospital on above: Performed By: #### TSH, T4 #### [facility] [address] [place] [address] Dr. Cristiana BautistaLIPID PROFILEon 79-90-4376XDGH-HDL RATIO Wilson HealthCommclaren port huron hospital on above:Result Comment: 3.3 - 4.4 LOW RISK 4.4 - 7.1 AVERAGE RISK 7.1 - 11.0 MODERATE RISK >11.0 HIGH RISKPerformed By: #### LIPID, CMP #### [facility] [address] [place] [address] Dr. Cristiana BautistaCholesterol [Mass/Vol]156 mg/dLNormal<=200[facility] Comment on above:Performed By: #### LIPID, CMP #### [facility] [address] [place] [address] Dr. Cristiana Crowesterol in HDL [Mass/Vol]43 mg/jMAshait49-62ChvMount Carmel Health System on above:Performed By: #### LIPID, CMP #### [facility] [address] [place] [address] Dr. Cristiana BautistaCholesterol in LDL [Mass/Vol]95.2 mg/dLMemorial Health System Selby General HospitalCommclaren port huron hospital on above:Performed By: #### LIPID, CMP #### [facility] [address] [place], [place] [id number] Dr. Cristiana BautistaCholesterol.total/Cholesterol in HDL [Mass ratio]3.6 {ratio} NormalThe [facility] CenterComment on above:Performed By: #### LIPID, CMP #### [facility] [address] [place] [address] Dr. Cristiana Alan NORMAL> or = 60 mg/dl - LOW CARDIOVASCULAR RISK <40 mg/dl - HIGH CARDIOVASCULAR RISKMemorial Health System Selby General HospitalComment on above:Performed By: #### LIPID, CMP #### [facility] [address] [place] [address] Dr. Cristiana BautistaLDL CALC NORMALSEE BELOWMemorial Health System Selby General HospitalComment on above:Result Comment: <100 mg/dl OPTIMAL 100 - 129 mg/dl NEAR OR ABOVE OPTIMAL 130 - 159 mg/dl BORDERLINE HIGH 160 - 189 mg/dl HIGH >190 mg/dl VERY HIGH Performed By: #### LIPID, CMP #### [facility] [address] [place] [address] Dr. Cristiana BautistaTriglyceride [Mass/Vol]89 mg/dLNormal<=150[facility] Comment on above:Performed By: #### LIPID, CMP #### [facility] [address] [place] [address] Dr. Cristiana MahajanLDL CALC17.8 mg/dLNoFostoria City HospitalComment on above: Performed By: #### LIPID, CMP #### [facility] [address] [place] [address] Dr. Cristiana BautistaPROMohan 14(COMP METB)on 07-37-9976Uubzrnb [Mass/Vol]3.7 g/dLNormal 3.4-5.0Kindred HealthcareComment on above:Performed By: #### LIPID, CMP #### [facility] [address] [place] [address] Dr. Cristiana BautistaAlbumin/Globulin [Mass ratio]1.0 {ratio}NormalThe [facility] Hospitals Tripoint Medical CenterComment on above:Performed By: #### LIPID, CMP #### [facility] [address] [place] [address] Dr. Cristiana Keller [Catalytic activity/Vol]72 U/XKagskx74-227Xiw [facility] CenterComment on above:Performed By: #### LIPID, CMP #### [facility] [address] [place] [address] Dr. Cristiana Clifford [Catalytic activity/Vol]18 U/KWdhcao24-75Chl [facility] CenterComment on above:Performed By: #### LIPID, CMP #### [facility] [address] [place] [address] Dr. Cristiana Richards gap [Moles/Vol]11.2 mmol/LNormalKindred Healthcare Comment on above:Performed By: #### LIPID, CMP #### [facility] [address] [place] [address] Dr. Cristiana Balbuena [Catalytic activity/Vol]16 U/YLldjnq75-34Oey [facility] CenterComment on above:Performed By: #### LIPID, CMP #### [facility] [address] [place] [address] Dr. Cristiana BautistaBilirubin [Mass/Vol]0.4 mg/dLNormal0.2-1.0The [facility] Comment on above:Performed By: #### LIPID, CMP #### [facility] [address] [place] [address] Dr. Cristiana BautistaCalcium [Mass/Vol]8.8 mg/dLNormal8.5-10.1[facility] Comment on above:Performed By: #### LIPID, CMP #### [facility] [address] [place] [address] Dr. Cristiana BautistaChloride [Moles/Vol]104 mmol/GDytuhx14-245Rml [facility] Comment on above:Performed By: #### LIPID, CMP #### [facility] [address] [place] [address] Dr. Cristiana BautistaCO2 [Moles/Vol]29.9 mmol/SSwdmsm54.0-32.0The [facility] Comment on above:Performed By: #### LIPID, CMP #### [facility] [address] [place] [address] Dr. Cristiana Allredatinine [Mass/Vol]0.44 mg/dLCritically low0.55-1.02Kindred HealthcareComment on above:Performed By: #### LIPID, CMP #### [facility] [address] [place] [address] Dr. Cristiana DaviesGFR-AF FAROESE>60Normal>=60The [facility] CenterComment on above:Performed By: #### LIPID, CMP #### [facility] [address] [address] [address] Cristiana DaviesGFR-NON AF FAROESE>60Normal>=60The [facility] CenterComment on above:Performed By: #### LIPID, CMP #### [facility] [address] [place] [address] Dr. Cristiana BautistaGlobulin (S) [Mass/Vol]3.7 g/dLNormalThe [facility] CenterComment on above:Performed By: #### LIPID, CMP #### [facility] [address] [place] [address] Dr. Cristiana BautistaGlucose [Mass/Vol]94 mg/zLTuudfw40-324StmKindred Healthcare Comment on above:Performed By: #### LIPID, CMP #### [facility] [address] [place] [address] Dr. Cristiana BautistaPotassium [Moles/Vol]4.1 mmol/LNormal3.5-5.1[facility] Comment on above:Performed By: #### LIPID, CMP #### [facility] [address] [place] [address] Dr. Cristiana BautistaProtein [Mass/Vol]7.4 g/dLNormal6.4-8.2[facility] Comment on above:Performed By: #### LIPID, CMP #### [facility] [address] [place] [address] Dr. Cristiana BautistaSodium [Moles/Vol]141 mmol/HYlcejr060-815TzrKindred Healthcare Comment on above:Performed By: #### LIPID, CMP #### [facility] [address] [place] [address] Dr. Cristiana Xie nitrogen [Mass/Vol]8.0 mg/dLNormal7.0-18.0The [facility] CenterComment on above:Performed By: #### LIPID, CMP #### [facility] [address] [place] [address] Dr. Cristiana Xie nitrogen/Creatinine [Mass ratio]18.2 mg/mgNormalThe [facility] CenterComment on above:Performed By: #### LIPID, CMP #### [facility] [address] [place] [address] Dr. Cristiana Whalen4on 63-94-1685A6 [Mass/Vol]10.10 ug/dLNormal4.80-13.90The [facility] CenterComment on above:Performed By: #### TSH, T4 #### [facility] [address] [place] [address] Dr. Cristiana Velazquez 86-94-8362DXB Qnm[IU]/LCritically low0.358-3.740The [facility] CenterComment on above:Performed By: #### TSH, T4 #### [facility] [address] [place] [address] Dr. Cristiana De/FLU/RSV RT-PCRon 30-50-8282XYLT-CoV-2 (COVID-19) RNA SURAJ+probe Ql (Unsp spec)NegativeNoReading [facility] Other COVID/FLU/RSV RT-PCRNegativeNocass medical center [employer] Other COVID/FLU/RSV RT-PCRneggativeNray county memorial hospital [employer] Other T4on 08-71-0253I6 [Mass/Vol]15.90 ug/dLCritically high 4.80-13.90The [facility] CenterComment on above:Performed By: #### TSH, T4 #### [facility] [address] [place] [address] Dr. Cristiana Velazquez 59-62-2132EYB Qnm[IU]/LCritically low0.358-3.740The [facility] CenterComment on above:Performed By: #### TSH, T4 #### [facility] [address] [place] [address] Dr. Cristiana Whalen4on 67-33-4799V3 [Mass/Vol]13.00 ug/dLNormal4.80-13.90The [facility] CenterComment on above:Performed By: #### TSH, T4 #### [facility] [address] [place] [address] Dr. Cristiana Velazquez 09-75-1384NJB6.001 uIU/mLCritically low0.358-3.740The [facility] CenterComment on above:Performed By: #### TSH, T4 #### [facility] [address] [place] [address] Dr. Zendejas ChangEvent Monitoron 30-19-9460Mlxnf MonitorEVENT MONITOR ENROLLMENT PERIOD: 12/05/2018 TO 01/03/2019 INDICATIONS: [...] BY: Julio Mendenhall MD aek Dictated: 01/07/2019 #[id number] Typed: 01/07/2019 #[id number] cc: Julio Mendenhall MDSt. John of God HospitalComment on above:Result Comment: Electronically Signed By: Za GARCIA, Julio Hill\.br\Date and Time Signed: 01/07/19 16:27 EDTCoding Summary.on 89-70-2182[place] Summary.CODING DATE: 12/19/[address] [facility] STATUS: Home (Routine DC) PAYOR: Medicaid [...] Cassie Pradhan CphT Date Saved: 12/19/2018 07:42 [facility] HospitalCoding Summary. on 18-03-4069Xexttk Summary.CODING DATE: 12/03/[address] [facility] STATUS: Home (Routine DC) PAYOR: Medicaid [...] Cassie Pradhan CphT Date Saved: 12/03/2018 10:29 [facility] HospitalEcho Transthoracic Completeon 36-42-2581Skpn Transthoracic CompleteEchocardiology Procedure Exam Date/Time Accession # Ordering Dr. Bell Transthoracic 11/08/2018 11:47 EDT [id number] Kentrell Bobo DO Complete CPT code 50004 Reason for Exam (Echo Transthoracic Complete) MITROVALVE PROLAPSE, SVT Report Patient Height: 59 Patient Weight: 90 Blood Pressure: 114/77 1. LVIDd m(3.8-5.8cm)w(3.8-5.2cm) 3.7 cm 2. LVIDs m(2.1-3.9cm)w(2.2-3.5cm) 2.1 cm 3. IVSd m(0.6-1.0cm) 0.86 cm [...] hypertension. Echocardiology Procedure Exam Date/Time Accession # Beau Claros Echo Transthoracic 11/08/2018 11:47 EDT [id number] Kentrell Bobo DO Complete Report 9. Pulmonic valve: Structurally normal with trivial pulmonic regurgitation. 10. Pericardium: No effusion seen. 11. Aortic root: Normal in size. IMPRESSION : 1. Technically adequate study. 2. Absence of significant valvular heart disease. 3. Ejection fraction 55-60%. FINAL REPORT Signed (Electronic Signature): 11/20/2018 7:58 pm Signed by: Rosibel Quiroz MD Transcribed by: modesta Technologist: OmarWilson Street HospitalCoding Summary.on 63-63-2423Xcobqa Summary.CODING DATE: 11/09/2018 FINAL [facility] STATUS: Home (Routine DC) PAYOR: Medicaid EAPG [...] Cassie Pradhan CphT Date Saved: 11/09/2018 12:11 [facility] Vital Signs Date TimeVital SignValuePerforming MouyxcgzvLnpkfkfe45-01-2754 15:46-0400Body zjwroy51.61 kgCorey Moody DO Work Phone: [facility] CenterRbgvrdgbpn76-35-1691 15:46-0400Diastolic blood anrffmlb65 mm[Hg]Gladis Moody DO Work Phone: [facility] CenterKvuhjniulm25-88-3192 15:46-0400Systolic blood eygxqemx204 mm[Hg]Gladis Moody DO Work Phone: [facility] CenterIlvunntieh92-76-8579 10:15-0400Body vsxqma665.86 Enmanuel Benoit Other [place] [employer] Other 08-19-2023 10:15-0400Body mass index (BMI) [Ratio] 24.84 kg/d4Mbblxc Kaycee Other noN[employer]is[employer] Other 08-19-2023 10:15-0400Body mogfhkuspli21.1 [degF]Elle Benoit Other [employer] Other 08-19-2023 10:15-0400Body .79 kgPaguillermina Benoit Other [employer] Other 08-19-2023 10:15-0400Respiratory rate16 /minElle Benoit Other [employer] Other 08-19-2023 10:15-8289XdP0% (BldA) [Mass fraction]98 % Elle Benoit Other [employer] Other 01-03-2023 11:00-0500Body .86 cmStepdonovan Genao Other [employer] Other 01-03-2023 11:00-0500Body mass index (BMI) [Ratio] 24.23 kg/q6IowjmfmzzClau Genao Other [employer] Other 01-03-2023 11:00-0500Body ffiluqnbnre79.8 [degF] Clau Genao Other [employer] Other 01-03-2023 11:00-0500Body xuvmgy89.43 kgSthilda Genao Other [employer] Other 01-03-2023 11:00-0500Respiratory rate18 /minSeleno Genao Other [employer] Other 357840-08-1875 11:00-1430HbC8% (BldA) [Mass fraction]96 % Clau Genao Other [place] [employer] Other Encounters Encounter DateEncounter TypeCare ProviderFacilityStart: 02-25-2025 End: 32-56-0084Mrpxdo flowsheetCorey Moody DO Work Phone: [facility] OBGYNStart: 02-25-2025 End: 08-23-5604Upgzik flowsheetCorey Moody DO Work Phone: [facility] [place] OBGYNStart: 02-25-2025 End: 84-50-8754rvygttjfwsAYCYI FAZIONot AvailableStart: 09-27-2024 End: 67-11-7450djjxmeruvsLJRX [facility] Centertart: 01-31-2024 End: 74-11-9079Edsb/qhp telephone evaluation 5-10 minCorey Moody DO Work Phone: [facility] BCP OBComment on above:PCOS (polycystic ovarian syndrome)Start: 12-28-2023 End: 99-74-4758Dabayargx Result EncounterCorey Moody DO Work Phone: noms External Department UnsolicitedStart: 12-28-2023 End: 69-04-5605Orngodpza Result EncounterCorey Moody DO Work Phone: noms External Department UnsolicitedStart: 12-26-2023 End: 20-10-4629Zdzitpwpb Result EncounterCorey Moody DO Work Phone: noms External Department UnsolicitedStart: 12-26-2023 End: 53-75-3869Rgwvuradc Result EncounterCorey Moody DO Work Phone: noms External Department UnsolicitedStart: 12-11-2023 End: 33-24-3421Jsnneo outpatient visit 15 minutesCorey Moody DO Work Phone: noms [facility] OBComment on above:Irregular menstrual cycle; BV (bacterial vaginosis); PCOS (polycystic ovarian syndrome)Start: 12-11-2023 End: 27-12-1170Xbsoal flowsheetCorey Moody DO Work Phone: noms [facility] OBStart: 12-11-2023 End: 48-50-1137Ymzxpz flowsheetCorey Moody DO Work Phone: noms BCP OBStart: 12-03-2022 End: 99-63-8004epdvicyoiwCkvfrl Dymond Other noNuvosun [employer] Other Start: 32-28-2983Zbqlwy outpatient visit 15 minutes Elle BenoitFPG Urgent Care ClydeStart: 07-26-2022 End: 62-53-9824fpcebobxtnIT KENTRELL HOUSEFacility:H2Pqiqi: 06-07-2022 End: 98-34-7349cteiatjikeVR KENTRELL HOUSEFacility:C2Bzmbg: 05-31-2022 End: 98-91-0242htebumvceoYNSBK FAZIOFacility:C5Sziow: 05-09-2022 End: 85-73-6580jqxvuarqrpZINKAC STEINFacility:I5Jhfjp: 96-40-4195Sgdextixb for general adult medical examination without abnormal findingsTHOMAS Berger Hospitaltart: 04-23-2022 End: 25-68-3764dgfympgajmOC KENTRELL HOUSEFacility:I4Eetao: 04-23-2022 End: 78-39-6134Iykcfzltq for general adult medical examination without abnormal findingsTHOMAS STEINFacility:F1Umkig: 04-19-2022 End: 66-63-3822mgzcavuvvdWkbzqcpbw Breault Other [facility] [employer] Other Start: 57-24-3019Cmagri outpatient visit 15 minutes Clau GenaoFPShantanu Urgent Care ClydeStart: 03-12-2022 End: 10-74-1841ojwlitxedeIN KENTRELL HOUSEFacility:W4Fznuo: 02-01-2022 End: 96-53-6112gdfciinrwbPU KENTRELL HOUSEFacility:K9Jewvc: 07-05-2021 End: 56-39-3359Goc-admission Fabriziodavid NinaJenniffer Garciasjennifer [facility] Procedures DateProcedureProcedure DetailPerforming ClinicianStart: 48-52-0176YW PELVIS W/ TRANSVAGINALCorey Moody DO Work Phone: Start: 05-89-9838OVL PREG QUANT HCGCorey Moody DO Work Phone: Plan of Treatment DateCare ActivityDetailAuthorStart: 02-25-2025 End: 02-01-0907Vbkodku encounter procedureNOMS Ronna OBGYNComment on above: ArrivedStart: 57-37-7447VRRDH-19 Vaccine ( season)COVID-19 Vaccine ( season)[facility]OMS HealthcareStart: 50-42-1292Lktmlsdeh vaccinationInfluenza Vaccine (#1)[facility]OM[facility] HealthcareStart: 01-31-2024 End: 98-21-4552Bgualrc encounter hxhlsyfvq05/16/2024 8:10 AM EDT Office Visit [facility] [address] [place] [address] Gladis Uriostegui DO [address] [place], [place] [id number] [facility] BCP OBStart: 01-09-2024 End: 88-39-8902Xjesjya encounter atrhzanrh33/24/2024 3:00 PM EDT Office Visit [facility] [address] [place] [address] Myrtle Laboy, PA [address] [place], [place] [id number] [facility] BCP OBStart: 12-27-2023 End: 51-00-6625Fnbkbivkqtyj / ancillary services szehodgejf90/11/2024 1:00 PM EDT Ancillary Procedure [facility] [address] [place] [id number] [facility] OBStart: 86-38-1872Lnnffcfth vaccination Influenza Vaccine (#1)NOM HealthcareStart: 12-11-2023 End: 18-29-0909Oykkfek encounter bchhqubvf92/26/2024 3:20 PM EDT Office Visit [facility] [address] [place] [address] Gladis Uriostegui, DO [address] [place] [address] ArrivedSOUTHERN INY[facility] OBComment on above:ArrivedStart: 12-11-2023 End: 63-41-2755JRILDSPR Lab Routine Irregular menstrual cycle PCOS (polycystic ovarian syndrome) Expected: 12/11/2023 (Approximate), Expires: 12/10/2024NOCT HealthcareComment on above:Expected: 12/11/2023 (Approximate), Expires: 12/10/2024Start: 12-11-2023 End: 46-32-0083MI for pregnancyUS PELVIS-TRANSVAG IF INDICATED Imaging Routine Irregular menstrual cycle PCOS (polycystic ovarian syndrome) Expected: 12/11/2023 (Approximate), Expires: 12/10/2024NOCT HealthcareComment on above: Expected: 12/11/2023 (Approximate), Expires: 5CBC W Auto Differential panel - BloodCBC and differential Lab Routine Irregular menstrual cycle PCOS (polycystic ovarian syndrome) Ordered: 12/11/2023NOCT HealthcareComment on above:Ordered: 2276XWDZ-zidrnbvESPH-yxndgaz Lab Routine Irregular menstrual cycle PCOS (polycystic ovarian syndrome) Ordered: 12/11/2023NOCT HealthcareComment on above:Ordered: 12/11/2023Follicle stimulating hormone Follicle stimulating hormone Lab Routine Irregular menstrual cycle PCOS (polycystic ovarian syndrome) Ordered: 12/11/2023NOCT HealthcareComment on above:Ordered: 12/11/2023hCG, quantitative, pregnancyhCG, quantitative, Lab Routine Irregular menstrual cycle PCOS (polycystic ovarian syndrome) Ordered: 12/11/2023[facility] Work Phone: comment on above:Ordered: 12/11/2023Hemoglobin A1c/Hemoglobin.total in BloodHemoglobin A1c Lab Routine Irregular menstrual cycle PCOS (polycystic ovarian syndrome) Ordered: 12/11/2023[facility] Healthcare Comment on above:Ordered: 12/11/2023Luteinizing hormoneLuteinizing hormone Lab Routine Irregular menstrual cycle PCOS (polycystic ovarian syndrome) Ordered: 12/11/2023[facility] HealthcareComment on above:Ordered: 12/11/2023Thyrotropin [Units/volume] in Serum or PlasmaTSH Lab Routine Irregular menstrual cycle PCOS (polycystic ovarian syndrome) Ordered: 12/11/2023[facility] HealthcareComment on above:Ordered: 12/11/2023Thyroxine (T4) free [Mass/volume] in Serum or PlasmaT4, free Lab Routine Irregular menstrual cycle PCOS (polycystic ovarian syndrome) Ordered: 12/11/2023[facility] HealthcareComment on above:Ordered: 12/11/2023 Immunizations Immunization DateImmunizationNotesCare AnqumawoUnvubnld04-85-4349guapejcqd virus vaccine, unspecified formulationCorey Moody DO Work Phone: [facility] Payers DatePayer CategoryPayerPolicy [id number] Health [id number] [employer] [id number] 2022-Present [phone] [address] [place] [id number] [id number] 20.1.123660.3.57[id number] 2.840.1.101981.3.57[id number] 2.16.840.1.149039.3.57[id number] 2.16.840.1.941306.3.57[id number] 2.16.840.1.872541.3.57[id number] 2.16.840.1.280154.3.57[id number] 2.16.840.1.435695.3.57[id number] 2.16.840.1.330577.3.57[id number] 2.16.840.1.511496.3.579.2.885959-50-8769ThlyOhioHealth Hardin Memorial [id number] 2.0.0.239417.424119 [id number] 2.0.1.562340.19[facility] [id number] 2.0.1.567909.19 Social History DateTypeDetailFacilityStart: 91-84-5776Gtpeshh smoking statusNever smoked tobacco (finding)[facility] Dublinex Assigned At BirthFemalSelect Medical [facility]Health Rehabilitation Hospital - DublinTobacco smoking status NHISTobacco smoking consumption unknownMOAB REGIONAL HOSPITAL HealthcareStart: 96-32-1833Sfm assigned at birthNot on fileMOAB REGIONAL HOSPITAL HealthcareStart: 32-18-4191Iwskta identityIdentifies as female gender (finding) [facility] HealthcareStart: 70-12-4587HlnHlkpzlDHSE Healthcare Clinical Notes 04-19-2022 to 09-27-2024 Note Date & MqcjZregFyipwafe92-86-8141 NoteSUBJECTIVE Reason for Visit: Estephanie Kothari is a 29 y.o. year old female patient being seen for 1 year follow-up visit. HPI: Estephanie Kothari is a 29 y.o. year old female with significant medical history of palpitations and SVT. Recent ED visit on 09/13/2024 for chest pain, chief complaint of heart racing. ED report 09/13/2024: HPI narrative: Patient is a 29-year-old female who is presenting to the ER with chief complaint of heart racing intermittently yesterday and today. Patient has a history of tachycardia, SVT. Patient was due to have a appointment today with [place] cardiology today, but this was rescheduled. Patient does have a history of SVT. Patient has a watch that records her heart rate. Patient states she was driving home yesterday and her heart rate was in the 160s. Patient currently heart rate is normal. Patient states that she has home last evening, took a shower to help feel better. Patient was able to go to bed at 10:30 PM and she slept with no difficulty last night. Patient felt her heart intermittently racing this morning, so she came into the ER for evaluation. 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 No significant stress or anxiety recently. Patient does have thyroid history, however she has been off thyroid medication for the past 2 years because her test had normalized. Patient currently has no chest pain, shortness of breath, nausea, vomiting, or any ot 09/27/2024 office visit: Patient was seen and evaluated in the office today for follow-up after her recent ED visit on 09/13/2024 for chest pain and palpitations. A 12-lead ECG at that time showed normal sinus rhythm. She reports intermittent episodes of a racing heartbeat at home, with her Apple Watch recording rates up to 160 bpm. She notes this was her first episode in over a year and attributes it to increased stress related to upcoming wedding planning. She adamantly denies lightheadedness, dizziness, presyncope, or syncope. She also denies current chest pain, shortness of breath, or lower extremity swelling. 09/14/2023 office visit (Dr. Decker): HPI Patient is a 28-year-old female who [...] and she drinks a lot of water. Medical History[1] Surgical History[2] Problem List[3] family history is not on file. Social History[4] OBJECTIVE Visit Vitals OB Status Having periods Smoking Status Never Physical Exam Constitutional: General Appearance: well-developed, appears stated age. Level of Distress: no acute distress. Neck: Jugular Veins: normal jugular venous pressure. Lungs: Auscultation: no rales or rhonchi and normal breath sounds. Cardiovascular: Rate And Rhythm: regular Heart Sounds: normal S1 and s2; Systolic Murmur: not heard. Diastolic Murmur: not heard. Extremities: no edema Peripheral Pulses: Pulses: full and equal in all extremities except if noted. Abdomen: Inspection and Palpation: non distended or tender and soft. Musculoskeletal: Inspection: no joint tenderness or swelling. Neurologic: Gait: normal gait. Psychiatric: Mental Status: alert and normal affect. Skin: Inspection and Palpation: warm and dry. Allergies: Allergies[5] Outpatient Medications: Current Outpatient Medications Medication Instructions mv-min/iron/folic/calcium/vitK (WOMEN'S MULTIVITAMIN ORAL) 1 tablet, oral, Daily Recent Labs: No visits with results within 6 Month(s) from this visit. Latest known visit with results is: No results found for any previous visit. I have personally reviewed and anaylzed the following laboratory results above. These findings have been analyzed in the context of the patient's clinical presentation. Cardiovascular Diagnostic Studies: Recent Labs 09/13/2024: Sodium 141, potassium 3.7, BUN 10, creatinine 0.67, EGFR greater than 60, glucose 161, calcium 9.0, troponin less than 5 TSH 3.723 Labs 07/22/2022: White blood count 5.9, hemoglobin 12.8, hematocrit 38.4, platelets 364 Magnesium 1.8, sodium 134, potassium 3.9, BUN 15, creatinine 1.57, glucose 99, GFR above 90 EK08/09/2022: Showed sinus bradycardia heart rate 58 bpm, otherwise normal EKG Echo: 04/28/2023 in [place] (more content not included)...[facility]06-13-2025 NotePatient is here today for a 1 year follow up. Patient states she was in the ER 2 weeks ago for chest pain, patient states she is unable to tell if it was heart related or anxiety. Patient states she feels its her Thyroid. Review of Systems Constitutional: Negative.[facility]10-16-2024 History of Present illness Narrative* Mari Vogel LPN - 01/31/2024 8:10 AM EDT Reason for Appointment: Patient ID: Estephanie Kothari is a 28 y.o. female who presents for Telehealth Patient presents today via telephone call for a telehealth appointment. Patients Phone #: [phone] (mobile) Current Medications: has a current medication [...] of: Gladis Uriostegui DO documented in this encounterMineral Area Regional Medical [id number] History of Present illness Narrative* Pamela Pretty LPN - 12/11/2023 3:20 PM EDT Reason for Appointment: Patient ID: Estephanie Kothari [...] of: Gladis Uriostegui DO documented in this encounterMineral Area Regional Medical CenterBeubqouxrk35-09-2125 Evaluation note* Encounter Date Diagnosis Assessment Notes Treatment Notes Treatment Clinical Notes Nov, Poison haleigh dermatitis (ICD-10 - [...] no improvement in 2 to 3 days [employer] Other 01-03-2023 Evaluation note* Encounter Date Diagnosis Assessment Notes Treatment Notes Treatment Clinical Notes Apr, Cough (ICD-10 - R05.9) Apr,ronchitis (ICD-10 - J40)Take medications as directed. Rest and increase fluid [...] go away, Acute bronchitis material was printed [employer] Other Evaluation + Plan note No data available for this section [facility] PCOS (polycystic ovarian syndrome) Polycystic ovaries documented in this encounter [facility] HealthcareEvaluation note* Diagnosis Irregular menstrual cycle BV (bacterial vaginosis) Unspecified vaginitis and vulvovaginitis PCOS (polycystic ovarian syndrome) Polycystic ovaries documented in this encounter [facility] HealthcareHistory general Narrative - Reported* Type Description Date Medical History mitral valve prolapse Medical Historysvt'sMedical HistoryGraves disease [employer] [facility] [employer] Other Hospital Discharge instructions No data available for this section [facility] Summary Purpose Family History No [...] DATE CREATED AUTHOR AUTHOR'S ORGANIZ ATION 08/01/2022 [facility] DATE CREATED AUTHOR AUTHOR'S ORGANIZ ATION 09/30/2024 [facility] DATE CREATED AUTHOR AUTHOR'S ORGANIZ ATION 02/27/2025 [facility] EPIC REASON FOR VISIT (unrecogniz ed section and content) ReasonCommentsTelehealthReasonCommentsMenstrual ProblemPt present today to discuss irregular cycles and [...] BE BASED ON THE PRIMARY CLINICAL RECORDS. [employer] provides no warranty or guarantee of the accuracy or completeness of information in this document.
[2025-03-26 14:14] LABS: Thyroid Stimulating Hormone 1.819 uIU/mL (0.358-3.740)
[2025-03-26 14:43] LABS: Alanine Aminotransferase 12 U/L (14-59); Albumin Globulin Ratio 1.0; Albumin Level 4.2 g/dL (3.4-5.0); Alkaline Phosphatase 64 U/L (46-116); Anion Gap 13.3; Aspartate Amino Transferase 13 U/L (15-37); Blood Urea Nitrogen 9.0 mg/dL (7.0-18.0); Calcium 9.1 mg/dL (8.5-10.1); Carbon Dioxide 26.0 mmol/L (21.0-32.0); Chloride 101 mmol/L (98-107); Estimated GFR (African America >60 (>=60 mL/min/1.73m^2); Estimated GFR (Non-African Ame >60 (>=60 mL/min/1.73m^2); Globulin 4.0 g/dL; Glucose 99 mg/dL (74-106); Potassium 3.3 mmol/L (3.5-5.1); Sodium 137 mmol/L (136-145); Total Protein 8.2 g/dL (6.4-8.2)
[2025-03-26 14:54] LABS: Hematocrit 39.4 % (36.0-48.0); Hemoglobin 13.4 g/dL (12.0-16.0); Immature Granulocytes Abs Auto 0.02 10^3/uL (0.00-0.03); Immature Granulocytes Pct Auto 0.2 % (0.0-0.5); Lymphocytes Absolute Auto 3.6 10^3/uL (1.2-3.8); Mean Corpuscular HGB Conc 34.0 g/dL (29.9-35.2); Mean Corpuscular Hemoglobin 29.8 pg (26.7-34.0); Mean Corpuscular Volume 87.6 fL (81.0-99.0); Platelet Count 396 10^3/uL (150-450); Red Blood Count 4.50 10^6/uL (4.20-5.40); White Blood Count 11.7 10^3/uL (4.0-11.0)
== END 2025-03-26 09:31 | disposition home or self-care (01) ==
DX: Z00.00 Encounter for general adult medical examination without abnormal findings (principal); Z13.6 Encounter for screening for cardiovascular disorders; Z13.1 Encounter for screening for diabetes mellitus
CPT/HCPCS: 36415; 80053; 80061; 82306; 83036; 84439; 84443; 85025